=== PATIENT | female | born 1980 | race Caucasian/White ===

== ENCOUNTER 2021-08-23 15:44 | Emergency (ER) | payer BC, SELFPAY ==
[2021-08-23 15:47] VITALS: BP 151/82; PULSE 88; RESP 18; TEMP 35.6; O2SAT 95; BMI 42.7
--- NOTE | 2021-08-23 16:59 | ED_ITS ---
HPI - General Adult General Chief complaint: Extremity Pain/Injury, Lower Stated complaint: LEFT ANKLE INJURY Time Seen by Provider: 08/23/21 16:40 Source: patient Mode of arrival: ambulatory Limitations: no limitations History of Present Illness HPI narrative: 41-year-old female coming in today complaining of left lower extremity pain. She states that her heel got caught when a heavy door closed on her foot. She states that the pain is located in the back of the heel and radiates up her leg to the mid calf. She is able to ambulate. Denies any other injury. No pain in the anterior foot. Related Data Home Medications Medication Instructions Recorded Confirmed albuterol sulfate 90 mcg/actuation INHALATION 08/23/21 aerosol inhaler levothyroxine 75 mcg tablet mcg 08/23/21 lisdexamfetamine 60 mg capsule mg 08/23/21 (Vyvanse) quetiapine 50 mg tablet mg 08/23/21 sumatriptan succinate 50 mg tablet mg PO 08/23/21 vortioxetine 20 mg tablet mg 08/23/21 (Trintellix) Allergies Allergy/AdvReac Type Severity Reaction Status Date / Time ranitidine [From Zantac] Allergy Mild throath Verified 08/23/21 15:53 swelling Review of Systems Narrative: Denies any other injury Exam Narrative: Exam Narrative: Obese, well-developed patient in no acute distress. Alert and oriented. Answers questions appropriately. Mood and affect are appropriate. Thoughts are goal oriented and rational. No tangential or magical thinking noted. Patient speaks in full sentences without needing to catch their breath. HEENT: Normocephalic atraumatic. Pupils are equally round reactive to light. Extraocular muscles are intact. Conjunctivae are moist without any icterus noted. Extremities: Bilateral lower extremities are without edema. Normal DP and PT pulses. There is no bruising, erythema or other skin changes noted of the left lower extremity. There is no swelling. She does not have any point tenderness anywhere on the foot or heel. She has mild discomfort with palpation of the Achilles however Achilles appears to be entirely intact without any surrounding erythema or swelling. Moreno test is normal. Foot is vascularly intact, normal capillary refill. No pain at the ball of the foot or toes. No pain at the medial or lateral malleoli. She has full range of motion at the ankle without difficulty. Skin: Well perfused without any obvious rashes. Const: Vital Signs, click to edit/add: Vital Signs - 24 hr 08/23/21 15:47 Temperature 96.1 F L Pulse Rate [Left P ulse Oximeter] 88 Respiratory Rate 18 Blood Pressure [Le ft Upper Arm] 151/82 H Pulse Oximetry 95 Course Vital Signs Vital signs: Initial Vital Signs Temperature 96.1 F L 08/23/21 15:47 Temperature Source Temporal Artery Scan 08/23/21 15:47 Pulse Rate 88 08/23/21 15:47 Respiratory Rate 18 08/23/21 15:47 Blood Pressure 151/82 H 08/23/21 15:47 Blood Pressure Mean 105 08/23/21 15:47 Blood Pressure Position Sitting 08/23/21 15:47 Pulse Oximetry 95 08/23/21 15:47 Oxygen Delivery Method 08/23/21 15:47 Vital Signs Temperature 96.1 F L 08/23/21 15:47 Pulse Rate 88 08/23/21 15:47 Respiratory Rate 18 08/23/21 15:47 Blood Pressure 151/82 H 08/23/21 15:47 Pulse Oximetry 95 08/23/21 15:47 Temperature 96.1 F L 08/23/21 15:47 Pulse Rate 88 08/23/21 15:47 Respiratory Rate 18 08/23/21 15:47 Blood Pressure 151/82 H 08/23/21 15:47 Pulse Oximetry 95 08/23/21 15:47 Medical Decision Making MDM Narrative Medical decision making narrative: Foot injury. At this point I do not believe that we need to do any further imaging as her exam was fairly unremarkable. We discussed symptomatic treatment, elevation, icing, NSAIDs. Patient is requesting a work note which was granted today. She had no other questions or concerns. Discharge Plan Discharge Clinical Impression: Foot injury Patient Disposition: Home, Self-Care Condition: Stable Additional Instructions: Elevate, ice areas that are sore (not apply ice directly to skin). Okay to take [id number] pain medication such as Tylenol or ibuprofen as needed for discomfort. Prescriptions: No Action sumatriptan succinate 50 mg tablet PO 0RF levothyroxine 75 mcg tablet 0RF albuterol sulfate 90 mcg/actuation HFA aerosol inhaler INHALATION 0RF quetiapine 50 mg tablet 0RF Vyvanse 60 mg capsule 0RF Trintellix 20 mg tablet 0RF Follow Up/Referrals: Jovana Lee MD [Primary Care Provider] - Stand Alone Forms: [employer] Info Instructions
== END 2021-08-23 18:28 | disposition home or self-care (01) ==
LOC: ED 17:32
PROVIDERS: Emergency Provider Family Medicine; PCP Family Medicine
DX: S99.922A Unspecified injury of left foot, initial encounter (principal)
CPT/HCPCS: 99282

== ENCOUNTER 2021-09-28 10:30 | Outpatient (CLI) | payer BC, SELFPAY ==
--- OUTSIDE RECORDS SUMMARY | 2021-09-28 07:37 | XMS_ITS | Clinical Summary ---
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 cholecalciferol (Vitamin D3 5000 intl units oral table t) 1 tabs Oral every day. escitalopram (Lexapro) Oral every day. unknown strength. levothyroxine Oral every day. unknown strength. Problem List Condition Effective Dates Status Health Status Informant At high risk for falls(Confirmed)1 Active Familial spastic Active paraparesis(Confirmed) Spondylolisthesis at L5-S1 Active level(Confirmed) 1Added via Discern Expert ADD_HIGHRISKFALL_PROBLEM Rule. 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
--- OUTSIDE RECORDS SUMMARY | 2021-09-28 07:37 | XMS_ITS | Clinical Summary ---
:1980 Author Organization [facility] Address [address] [place] [address] Encounter 08/05/20 - 08/05/20 [facility] [address] [place] [address] Encounter Diagnosis Spasticity (Discharge Diagnosis) - 08/05/20 Discharge Disposition: Home or Self Care Attending Physician: Mary Deluca MD Admitting Physician: Mary Deluca MD Referring Physician: Mary Deluca MD Allergies, Adverse Reactions, Alerts Substance Reaction Severity Status Zantac Anaphylaxis Active Discharge Medications baclofen (baclofen 10 mg oral tablet) Status: Ordered Start Date: 07/28/20 1 tabs Oral nightly x 1 week, 1 tab po b id x 1 week, 1 tab po tid thereafter. Refills: 5. Ordering provider: Mary Deluca MD lamoTRIgine (lamoTRIgine 200 mg oral tablet) Status: Ordered Start Date: 08/05/20 1 tabs Oral every day. levothyroxine (levothyroxine 75 mcg (0.075 mg) oral ta blet) Status: Ordered Start Date: 08/05/20 1 tabs Oral every day. lisdexamfetamine (Vyvanse 40 mg oral capsule) Status: Ordered Start Date: 08/05/20 1 Capsules Oral every morning. omeprazole (omeprazole 20 mg oral delayed release caps ule) Status: Ordered Start Date: 08/05/20 1 Capsules Oral 2 times a day. vortioxetine (Trintellix 20 mg oral tablet) Status: Ordered Start Date: 08/05/20 1 tabs Oral every day. Problem List Condition Effective Dates Status Health Status Informant At high risk for falls(Confirmed)1 Active Familial spastic Active paraparesis(Confirmed) Spondylolisthesis at L5-S1 Active level(Confirmed) 1Added via Discern Expert ADD_HIGHRISKFALL_PROBLEM Rule. Hospital Discharge Diagnosis Spasticity (Discharge Diagnosis) - 08/05/20 (This Visit) Immunizations Given and Recorded Vaccine Date Status Refusal Reason influenza virus vaccine, inactivated 11/15/18 Recorded influenza virus vaccine, inactivated 12/02/16 Recorded influenza virus vaccine, inactivated 11/15/12 Recorded influenza virus vaccine, inactivated 10/17/11 Recorded influenza virus vaccine, inactivated 11/17/10 Recorded tetanus/diphth/pertuss (Tdap) adult/adol 03/07/12 Recorde d tetanus-diphth toxoids (Td) adult/adol 10/02/06 Recorded tetanus-diphth toxoids (Td) adult/adol 02/04/97 Recorded Vital Signs Most recent to oldest [Reference Range]: 1 Temperature Temporal Artery [36.5-38 Deg C] 35.5 Deg C *LOW* (08/05/20 10:05 AM) Peripheral Pulse Rate [50-90 bpm] 119 bpm *HI* (08/05/20 10:05 AM) Blood Pressure [100-140/60-90 mmHg] 159/113 mmHg *HI* (08/05/20 10:05 AM) Respiratory Rate [10-24 br/min] 17 br/min (08/05/20 10:05 AM) SpO2 [92-100 %] 97 % (08/05/20 10:05 AM) Pain Present Yes actual or suspected pain (08/05/20 10:25 AM) Able to self report Yes (08/05/20 10:25 AM) able to use numeric rating scale Yes (08/05/20 10:25 AM) Social History Social History Type Response Smoking Status Never smoker; Exposure to Se condhand Smoke: No entered on: 08/05/20 Sex
--- OUTSIDE RECORDS SUMMARY | 2021-09-28 07:37 | XMS_ITS | Clinical Summary ---
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 Ordering provider: Mary Deluca MD escitalopram (Lexapro) Status: Ordered Start Date: 05/02/16 30 Milligrams Oral every day. levothyroxine Status: Ordered Start Date: 05/02/16 Oral every day. unknown strength. Problem List Condition Effective Dates Status Health Status Informant At high risk for falls(Confirmed)1 Active Familial spastic Active paraparesis(Confirmed) Spondylolisthesis at L5-S1 Active level(Confirmed) 1Added via Discern Expert ADD_HIGHRISKFALL_PROBLEM Rule. 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/20 (This Visit) Immunizations Given and Recorded Vaccine [...] 1 Temperature Temporal Artery [36.5-38 Deg C] 36.8 Deg C (07/28/20 12:34 PM) Peripheral Pulse Rate [50-90 bpm] 89 bpm (07/28/20 12:34 PM) Blood Pressure [100-140/60-90 mmHg] 132/82 mmHg (07/28/20 12:34 PM) Height/Length Measured 164 cm (07/28/20 12:34 PM) Weight Measured 123.9 kg (07/28/20 12:34 PM) Weight Dosing 123.9 kg (07/28/20 12:34 PM) BSA Measured 2.38 m2 (07/28/20 12:34 PM) Body Mass Index Measured 46.07 kg/m2 (07/28/20 12:34 PM) Pain Present Patient was not seen (07/28/20 1:01 PM) Social History Social History Type Response Smoking Status Never smoker; Exposure to Se condhand Smoke: No entered on: 07/08/20 Sex
--- OUTSIDE RECORDS SUMMARY | 2021-09-28 07:37 | XMS_ITS | Clinical Summary ---
:1980 Author Organization [facility] Address [address] [place] [address] Encounter 12/16/18 - 12/16/[address] [address]- Discharge Disposition: Home or Self Care Attending Physician: Mary Deluca MD Admitting Physician: Mary Deluca MD Referring Physician: Mary Deluca MD Allergies, Adverse Reactions, Alerts Substance Reaction Severity Status Zantac Anaphylaxis Active Discharge Medications baclofen (baclofen 10 mg oral tablet) 0.5 tabs Oral 3 times a day. 0.5 tab po qhs x 1 week, 0.5 tab po bid x 1 week, then 0.5 tab po TID. Refills: 6. Ordering provider: Mary Deluca MD escitalopram (Lexapro) 30 Milligrams Oral every day. levothyroxine Oral every day. unknown strength. Problem List Condition Effective Dates Status Health Status Informant At high risk for falls(Confirmed)1 Active Familial spastic Active paraparesis(Confirmed) Spondylolisthesis at L5-S1 Active level(Confirmed) 1Added via Discern Expert ADD_HIGHRISKFALL_PROBLEM Rule. Immunizations Given and Recorded Vaccine Date Status Refusal Reason influenza virus vaccine, inactivated 11/15/18 Recorded influenza virus vaccine, inactivated 12/02/16 Recorded influenza virus vaccine, inactivated 11/15/12 Recorded influenza virus vaccine, inactivated 10/17/11 Recorded influenza virus vaccine, inactivated 11/17/10 Recorded tetanus/diphth/pertuss (Tdap) adult/adol 03/07/12 Recorde d tetanus-diphth toxoids (Td) adult/adol 02/04/97 Recorded Vital Signs Most recent to oldest [Reference Range]: 1 Height/Length Measured 164 cm (12/16/18 9:29 AM) Weight Measured 131.8 kg (12/16/18 9:29 AM) Body Mass Index Measured 49 kg/m2 (12/16/18 9:29 AM) Social History Social History Type Response Smoking Status Never smoker; Exposure to Se condhand Smoke: No entered on: 11/26/18 Sex
--- OUTSIDE RECORDS SUMMARY | 2021-09-28 07:38 | XMS_ITS | Clinical Summary ---
:1980 Author Organization [facility] Address [address] [place] [address] Encounter 07/24/19 - 07/24/19 [facility] [address] [place] [address] Encounter Diagnosis Spasticity (Discharge Diagnosis) - 07/24/19 Discharge Disposition: Home or Self Care Attending Physician: Mary Deluca MD Admitting Physician: Mary Deluca MD Referring Physician: Mary Deluca MD Allergies, Adverse Reactions, Alerts Substance Reaction Severity Status Zantac Anaphylaxis Active Discharge Medications escitalopram (Lexapro) Status: Ordered Start Date: 05/02/16 30 Milligrams Oral every day. levothyroxine Status: Ordered Start Date: 05/02/16 Oral every day. unknown strength. Problem List Condition Effective Dates Status Health Status Informant At high risk for falls(Confirmed)1 Active Familial spastic Active paraparesis(Confirmed) Spondylolisthesis at L5-S1 Active level(Confirmed) 1Added via Discern Expert ADD_HIGHRISKFALL_PROBLEM Rule. Hospital Discharge Diagnosis Spasticity (Discharge Diagnosis) - 07/24/19 (This Visit) Immunizations Given and Recorded Vaccine [...] 1 Temperature Temporal Artery [36.5-38 Deg C] 36.4 Deg C *LOW* (07/24/19 11:09 AM) Peripheral Pulse Rate [50-90 bpm] 101 bpm *HI* (07/24/19 11:09 AM) Blood Pressure [100-140/60-90 mmHg] 138/79 mmHg (07/24/19 11:09 AM) Weight Measured 128.4 kg (07/24/19 11:09 AM) Weight Dosing 128.4 kg (07/24/19 11:09 AM) Pain Present Yes actual or suspected pain (07/24/19 11:52 AM) Able to self report Yes (07/24/19 11:52 AM) able to use numeric rating scale Yes (07/24/19 11:52 AM) Social History Social History Type Response Smoking Status Never smoker; Exposure to Se condhand Smoke: No entered on: 07/01/19 Sex
--- OUTSIDE RECORDS SUMMARY | 2021-09-28 07:38 | XMS_ITS | Encounter Summary ---
:1980 Author Organization [facility] Address [address] [place] [address] Care Team Providers Name Role Phone Unavailable Primary Care Provider Unavailable Encounter Details Date Type Department Care Team Description 02/21/2021 Admin Visit Department of Family Medicine, [address] [address] [facility] [phone] Social History Tobacco Use Types Packs/Day Years Used Date Smoking Tobacco: Former Sex Assigned at Date Recorded Not on file documented as of this encounter Plan of Treatment Not on filedocumented as of this encounter Visit Diagnoses Not on filedocumented in this encounter Additional Health Concerns Infection Onset Date Last Indicated Resolved Time COVID19 Pending 02/21/2021 02/21/2021 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
--- OUTSIDE RECORDS SUMMARY | 2021-09-28 07:38 | XMS_ITS | Clinical Summary ---
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) - 04/08/18 (This Visit) Vital Signs Most recent to oldest [Reference Range]: 1 Temperature Tympanic [36.5-38 Deg C] 36.3 Deg C *LOW* (04/11/18 9:20 AM) Peripheral Pulse Rate [50-90 bpm] 82 bpm (04/11/18 9:20 AM) Blood Pressure [100-140/60-90 mmHg] 155/85 mmHg *HI* (04/11/18 9:20 AM) Respiratory Rate [10-24 br/min] 18 br/min (04/11/18 9:20 AM) SpO2 [92-100 %] 96 % (04/11/18 9:20 AM) Pain Present No actual or suspected pain (04/11/18 9:19 AM) Able to self report Yes (04/11/18 9:19 AM) able to use numeric rating scale Yes (04/11/18 9:19 AM) Social History Social History Type Response Smoking Status Never smoker; Exposure to Se condhand Smoke: No entered on: 04/11/18 Sex
--- OUTSIDE RECORDS SUMMARY | 2021-09-28 07:38 | XMS_ITS | Encounter Summary ---
:1980 Author Organization [facility] Address [address] [place] [address] Care Team Providers Name Role Phone Unavailable Primary Care Provider Unavailable Encounter Details Date Type Department Care Team Description 04/29/2020 Orders Only Department of Gail Reno V., Abscess Abd ominopelvic Obstetrics and Raissa, M.B.A. (HCC) (Primar y Dx) Gynecology in [place], [place] [address] [place] [address] Social History Tobacco Use Types Packs/Day Years Used Date Smoking Tobacco: Former Sex Assigned at Date Recorded Not on file documented as of this encounter Plan of Treatment Not on filedocumented as of this encounter Visit Diagnoses Diagnosis Abscess Abdominopelvic (HCC) - Primary documented in this encounter Additional Health Concerns Infection Onset Date Last Indicated Resolved Time COVID19 Pending 04/29/2020 04/29/2020 04/29/2020 5:55 PM CDT documented as of this encounter
--- OUTSIDE RECORDS SUMMARY | 2021-09-28 07:38 | XMS_ITS | Encounter Summary ---
:1980 Author Organization [facility] Address [address] [place] [address] Care Team Providers Name Role Phone Unavailable Primary Care Provider Unavailable Encounter Details Date Type Department Care Team Description 03/26/2006 Hospital Encounter HX [facility] Doyle Francis M.D. Social History Tobacco Use Types Packs/Day Years Used Date Smoking Tobacco: Never Assessed Sex Assigned at Date Recorded Not on file documented as of this encounter Plan of Treatment Not on filedocumented as of this encounter Visit Diagnoses Not on filedocumented in this encounter
--- OUTSIDE RECORDS SUMMARY | 2021-09-28 07:38 | XMS_ITS | Encounter Summary ---
:1980 Author Organization [facility] Address [address] [place] [address] Care Team Providers Name Role Phone Unavailable Primary Care Provider Unavailable Reason for Visit Reason Onset Date Comments Outpatient COVID-19 Testing 02/21/2021 Encounter Details Date Type Department Care Team Description 02/21/2021 External Outreach Department of [facility] Mary Kirby Contact With And Medicine, [facility] Galina Bingham (Suspected) Exposure Building, in [address] COVID-19 ([place], [place] Dx) [address] [facility] [address] [place], [place] [phone] [address] (Work) [phone] Social History Tobacco Use Types Packs/Day Years Used Date Smoking Tobacco: Former Sex Assigned at Date Recorded Not on file documented as of this encounter Progress Notes Lala Fay R.N. - 02/21/2021 11:23 AM CST Encounter created for COVID-19 screening. CTOR PRISON documented in this encounter Plan of Treatment Not on filedocumented as of this encounter Procedures Procedure Name Priority Date/Time Associated Diagnosis Comme nts SARS CORONAVIRUS-2 Routine 02/21/2021 1:15 PM Contact With And Results for this RNA, V DIRECTOR PRISON (Suspected) Exposure procedu re are in To COVID-19 the results section. documented in this encounter Results SARS Coronavirus-2 RNA, V Asymptomatic (02/21/2021 1:15 PM DIRECTOR PRISON) [facility] Method Time Signature SARS-CoV-2 Swab, 02/22/2021 MKTO Specimen Nasopharynx 4:28 AM DIRECTOR PRISON Source SARS CoV-2 Undetected Undetected 02/22/2021 MKTO RNA, TMA 4:28 AM DIRECTOR PRISON Comment: SARS-CoV-2 RNA absent. This result does not rule out COVID-19 in the patient, as the sensitivity of the test depends o n the timing of the specimen collection and the quality of the specim en. Result should be correlated with patient's history and clinical presentat ion. ----ADDITIONAL INFORMATION---- This molecular amplification test was pe rformed using the Aptima SARS-CoV-2 assay ([employer] on the Snipds tem under emergency use authorization (EUA) by the U.S. Food and Drug Administ ration. Fact sheets for this EUA assay can be fo und at the following links: For Healthcare Providers: https://www.[employer] a.gov/media/961420/download For Patients: https://www.fda.gov/media/ 713173/download Specimen Anatomical Collection Method Collection Time Receive d Time (Source) Location / / Volume Laterality Varies 02/21/2021 1:15 PM 9:53 (Nasopharynx) DIRECTOR PRISON PM DIRECTOR PRISON Kirby Hernandez D.O. LAB MICROBIOLOGY - GENERAL O RDERABLES Performing Organization Address City/State/[facility] Phon e Number [facility]- [address] [place] [phone] [place] [address] [place] [address] System [address] documented in this encounter Visit Diagnoses Diagnosis Contact With And (Suspected) Exposure To COVID-19 - Primary documented in this encounter Additional Health Concerns Infection Onset Date Last Indicated Resolved Time COVID19 Pending 02/21/2021 02/21/2021 02/22/2021 4:28 AM DIRECTOR PRISON documented as of this encounter
--- OUTSIDE RECORDS SUMMARY | 2021-09-28 07:38 | XMS_ITS | Encounter Summary ---
:1980 Author Organization [facility] Address [address] [place] [address] Care Team Providers Name Role Phone Unavailable Primary Care Provider Unavailable Reason for Visit Reason Comments Communication Encounter Details Date Type Department Care Team Description 05/24/2020 Clinical Communication Department of Gail Reno C ommunication Obstetrics and Raissa M.B.A. Gynecology in [place], [place] [address] [place] [address] Social History Tobacco Use Types Packs/Day Years Used Date Smoking Tobacco: Former Sex Assigned at Date Recorded Not on file documented as of this encounter Miscellaneous Notes Telephone Encounter - Anika Patel - 05/24/2020 5:01 PM CDT 05-24-2020: Letter okayed by Dr. Nina; authorization scanned to fax to employer; faxed to the employer (attention of Rebekah) as patient requested; patient notified. She appreciated the information. Telephone Encounter - Anika Patel - 05/24/2020 12:48 PM CDT 05-24-2020: Left message for patient to call me ([phone]). Will also send her an e-mail with an authorization attached. Need to have this signed, dated and returned to me today in order to get her letter withrestrictions to her employer. Have message in to Dr. Gail Reno who is in surgery today to call me back and give verification of the information for the patient. Will work on then getting this letter to patient's employer once the authorization is received. Spoke with patient after she received my e-mail. She will sign, date and scan and send back to me. Telephone Encounter - Anika Patel - 05/24/2020 12:08 PM CDT 05-24-2020: Paged Dr. Gail Reno to talk to her about the letter done for [place] on 04-30-2020. Will need tochange and get it back to the patient Today as the patient would like to return to work on 05-25-2020, tomorrow. Telephone Encounter - Dariela Caro - 05/24/2020 9:34 AM CDT Patient called regarding her return to work letter. She states the wording is confusing and her employer is unsure what her actual restrictions are. They are asking that a clearer letter be faxed to them at [phone] Attn: Rebekah stating when she can return to work and how long the lifting restrictions are. Patient is very much hoping to return to work on 05/25 and just have lifting restrictions until 06/04. She would like a call once complete. Thank you. documented in this encounter Plan of Treatment Not on filedocumented as of this encounter Visit Diagnoses Not on filedocumented in this encounter
--- OUTSIDE RECORDS SUMMARY | 2021-09-28 07:38 | XMS_ITS | Encounter Summary ---
:1980 Author Organization [facility] Address [address] [place] [address] Care Team Providers Name Role Phone Unavailable Primary Care Provider Unavailable Reason for Visit Reason Comments COVID Inquiry Encounter Details Date Type Department Care Team Description 02/21/2021 Clinical Communication Central Appointment HelderedABIMAEL briceno Office in [facility] [address] [place], [place] [id number] Social History Tobacco Use Types Packs/Day Years Used Date Smoking Tobacco: Former Sex Assigned at Date Recorded Not on file documented as of this encounter Miscellaneous Notes Telephone Encounter - Roxana Tan U - 02/21/2021 11:00 AM CST What is the purpose of the call?: Requesting Testing Only Request Testing In the past 14 days are any of the following symptoms new to you and not related to an existing health condition?: No symptoms noted In the past 14 days have you had close contact* with a person who has a LABORATORY CONFIRMED case ofCOVID-19?: Yes exposure noted. [place] patient, instruct to quarantine, testing indicated (End Screening) Plan: Endpoint recommendation: Testing indicated, advised to be swabbed for COVID-19 Only , sent to [facility] located at [address] [place] [address] ([facility]). An appointment is required for testing, please call [phone] Sunday-Sunday 7am to 6pm and Sunday & Sunday 9am to 4pm to schedule an appointment. Testing hours are 8am - 4:30pm daily. You can also schedule via your Patient Online [facility] account., Please avoid using public transportation per CDC recommendation. If you do not have personal transportation please self- quarantine until a personal transportation option is available. *Reminder if sending patient for testing in [facility] or [facility], route encounter to the correct testing pool. SHIPPER documented in this encounter Plan of Treatment Not on filedocumented as of this encounter Visit Diagnoses Not on filedocumented in this encounter
--- OUTSIDE RECORDS SUMMARY | 2021-09-28 07:38 | XMS_ITS | Clinical Summary ---
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 [...] Expert ADD_HIGHRISKFALL_PROBLEM Rule. 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 (This Visit) Immunizations Given and Recorded Vaccine Date Status Refusal Reason influenza virus vaccine, inactivated 11/15/18 Recorded influenza virus vaccine, inactivated 12/02/16 Recorded influenza virus vaccine, inactivated 11/15/12 Recorded influenza virus vaccine, inactivated 10/17/11 Recorded influenza virus vaccine, inactivated 11/17/10 Recorded tetanus/diphth/pertuss (Tdap) adult/adol 03/07/12 Recorde d tetanus-diphth toxoids (Td) adult/adol 02/04/97 Recorded Social History Social History Type Response Smoking Status Never smoker; Exposure to Se condhand Smoke: No entered on: 11/26/18 Sex
--- OUTSIDE RECORDS SUMMARY | 2021-09-28 07:38 | XMS_ITS | Clinical Summary ---
:1980 Author Organization [facility] Address [address] [place] [address] Care Team Providers Name Role Phone Unavailable Primary Care Provider Unavailable Source Comments Patient records contain information from all sites at [facility]. For routine questions regarding patient records, call [phone] during business hours, M-F 8:00 AM - 5:00 PM Central Time. Record requests for emergency care only can be directed to [phone] at any time.[facility] Allergies Active Allergy Reactions Severity Noted Date Comments Ragweed Pollen Other (see comments) 04/29/2020 Seaso nal allergy: watery eyes, sneezes, nasal congestion Ranitidine Hcl Anaphylaxis High 04/29/2020 Throat swelli ng with previous IV administrati on Medications Medication Sig Dispensed Refills Start Date End Date Status lisdexamfetamine Take 40 mg by 0 Active (VYVANSE) 40 mg capsule mouth every morning. omeprazole (PriLOSEC) Take 20 mg by [address] capsule mouth every morning before breakfast. lamoTRIgine (LaMICtal) Take 200 mg by 0 Active 200 mg tablet mouth daily. vortioxetine Take 20 mg by 0 Act rita (TRINTELLIX) 20 mg mouth daily. tablet levothyroxine Take 75 mcg by 0 A ctive (SYNTHROID, LEVOTHROID) mouth every 75 mcg tablet morning before breakfast. fluticasone propionate Administer 2 0 Active (FLONASE) 50 sprays into each mcg/actuation nasal nostril daily as spray needed for rhinitis or allergies. albuterol 90 Inhale 2 puffs 0 Ac tive mcg/actuation inhaler every 6 (six) hours as needed for wheezing or shortness of breath. enoxaparin (LOVENOX) 40 Inject 40 mg 0 04/22/2020 Active mg/0.4 mL injection under the skin at bedtime. acetaminophen (TYLENOL) Take 1,000 mg by 0 Active 500 mg tablet mouth every 6 (six) hours as needed for pain. docusate sodium Take 100 mg by 0 Active (COLACE) 100 mg capsule mouth 2 (two) times a day as needed for constipation. cetirizine (ZyrTEC) 10 Take 10 mg by 0 Active mg tablet mouth daily as needed for allergies. oxyCODONE (ROXICODONE) Take 5 mg by 0 Active 5 mg immediate release mouth every 4 tablet (four) hours as needed for pain. cholecalciferol, Take 5,000 Units 0 Active vitamin D3, (VITAMIN D3 by mouth daily. 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 Multiple Sclerosis 08/10/2016 Immunizations Name Administration Dates Next Due H1N1 All Forms 12/15/2008 MMR 06/11/1989 Td (Adult), adsorbed 03/16/2004, 07/04/1996 Td, (Adult) Unspecified 1997 Social History Tobacco Use Types Packs/Day Years Used Date Smoking Tobacco: Former Sex Assigned at Date Recorded Not on file Last Filed Vital Signs Vital Sign Reading Time Taken Comments Blood Pressure 148/83 04/30/2020 7:15 PM CDT Pulse 94 04/30/2020 7:15 PM CDT Temperature 37.3 ??C (99.1 ??F) 04/30/2020 7:15 PM CDT Respiratory Rate 16 04/30/2020 7:15 PM CDT Oxygen Saturation 98% 04/30/2020 7:15 PM CDT Inhaled Oxygen Concentration - - Weight 121 kg (265 lb 14 oz) 04/30/2020 8:12 AM CDT Height 167.5 cm (5' 5.95) 04/29/2020 1:55 PM CDT Body Mass Index 42.98 04/29/2020 1:55 PM CDT Plan of Treatment Health Maintenance Due Date Last Done Comments Fasting Lipid Panel 1980 HIV Screening 1980 Hepatitis B Vaccines (1 of 1980 3 - 3-dose series) Hepatitis C Screening 1980 Mammogram 1980 Thyroid Stimulating Hormone 1980 (TSH) test for thyroid function Depression Screening 02/05/2021 (Annual PHQ-2) Influenza Vaccine (#1) 2021 11/15/2020, 10/23/2019, 11/15/2018, Additional history exists DTaP,Tdap,and Td Vaccines 03/07/2022 03/07/2012, 03/07/2012 , (3 - Td or Tdap) 10/02/2006, Additional history exists COVID-19 Vaccine Completed 02/17/2021, 03/10/2020, 02/12/2020 Pneumococcal vaccine (0-64 Aged Out No lo nger eligible years) based on patient 's age to complete this topic Insurance Payer Benefit Plan Subscriber ID Effective Phone Address Typ e / Group Dates BLUE CROSS BCBS BLUE [id number] 2018-Prese ATTN: Yoan brooke HMO BLUE SHIELD PLUS HMO nt [facility] [address] [address] [place] [address] [phone] (Home) [place] [phone]
--- OUTSIDE RECORDS SUMMARY | 2021-09-28 07:38 | XMS_ITS | Encounter Summary ---
:1980 Author Organization [facility] Address [address] [place] [address] Care Team Providers Name Role Phone Unavailable Primary Care Provider Unavailable Encounter Details Date Type Department Care Team Description 04/24/2009 Hospital Encounter [facility] Bobo Ness M.D. Social History Tobacco Use Types Packs/Day Years Used Date Smoking Tobacco: Never Assessed Sex Assigned at Date Recorded Not on file documented as of this encounter Progress Notes Antony Ness M.D. - 04/24/2009 12:03 PM CDT [id number] SUBJECTIVE Comes in because of pain on her legs. States she lives in [place] near the [facility], is here visiting. As she was driving down here, developed pain in the thighs and has persisted to the point of being quite uncomfortable for her. She has a spastic diplegia, congenital. She is not on antispasmodic medicine and has not been on a lot of medicine for that. She volunteers that she has a history of addiction and that she has been dry and sober now for five years, and that she does not wish to have any narcotics or any other addicting medication. Her present medicine is: 1. Zoloft. 2. Wellbutrin. 3. Mary. 4. Zakia. The Zoloft was started about a week ago. She was on Baclofen once and got very tired from it, and itwas not continued. OBJECTIVE There is diffuse tenderness throughout the anterolateral thighs, both sides. There seems to be a center of tenderness at and just distal to the SI joint on both sides. The spinous processes are not tender. Her activity is suggestive of a spastic diplegia, but she states it is not different than her usual gait, etc. ASSESSMENT Leg pain of uncertain etiology. Quite likely related to her neurological deficit. PLAN Prescribed Skelaxin 800 three times a day, and after discussion about pain medicine, she elects to stay with Tylenol only. We talked about the possibility of Tramadol, and she would prefer not using it. She is going to check with her usual doctor on Sunday to see if there are other things of concern. She will return here during the weekend if there is any increasing symptomatology. DIAGNOSIS Leg pain. Antony Ness MD//briseida #[id number] cc: The provider is no longer available to sign documents. The report will be filed without authentication. Electronically Signed By:ANTONY NESS MD On 12/28/2009 11:37 am Modified by:ANTONY NESS MD On 12/28/2009 11:37 am Source: [facility] Document Id: [id number] ET JACK documented in this encounter Miscellaneous Notes Miscellaneous - Martinez Goodson, R.N. - 04/24/2009 12:22 PM CDT Adult Practice Management Consultant Intake/History Adult Practice Management Consultant Intake/History Entered On: 04/24/2009 12:23 CDT Performed On: 04/24/2009 12:22 CDT by MARTINEZ GOODSON sec reporting consultant Chief Complaint: legs tight--cannot walk Onset of Symptoms: yesterday Ambulatory Intake Additional Information: hx of spastic parapelgia Temperature Core: 35.0DegC(Converted to: 95.0DegF) (LOW) Peripheral Pulse Rate: 101bpm (HI) Oxygen Therapy: Room air Systolic Blood Pressure: 131mmHg Diastolic Blood Pressure: 85mmHg NIBP Mean: 100mmHg BP Location: Right upper extremity MARTINEZ GOODSON RN - 04/24/2009 12:22 CDT Subjective Pain Symptoms: Yes MARTINEZ GOODSON RN - 04/24/2009 12:22 CDT Pain Pain Assessment Grid Pain 1 Location: Upper leg Laterality: Bilateral Intensity: 8 Pain Radiation: Yes Radiation Characteristics: lower legs and back MARTINEZ GOODSON RN - 04/24/2009 12:22 CDT Dependent Habits Tobacco Use/Currently Using: No MARTINEZ GOODSON RN - 04/24/2009 12:22 CDT Allergies Allergies (Active) Zantac Estimated Onset Date: Unspecified ; Reactions: Anaphylaxis ; Created By: MARTINEZ GOODSON RN;Reaction Status: Active ; Category: Drug ; Substance: Zantac ; Type: Allergy ; Updated By: MARTINEZ GOODSON RN; Reviewed Date: 04/24/2009 12:20 CDT [facility] Document Id: [id number] CDT!24 documented in this encounter Plan of Treatment Not on filedocumented as of this encounter Visit Diagnoses Not on filedocumented in this encounter
--- OUTSIDE RECORDS SUMMARY | 2021-09-28 07:38 | XMS_ITS | Encounter Summary ---
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 Gap, P 7 7 - 15 04/29/2020 M[facility] 3:56 PM CDT BUN (Blood Urea 13 6 - 21 04/29/2020 M[facility] Nitrogen), P mg/dL 3:56 PM CDT Creatinine 0.75 0.59 - 04/29/2020 M[facility] 1.04 mg/dL 3:56 PM CDT eGFR-Black/Afric >90 >=60 04/29/2020 METH an Haitian mL/min/BSA 3:56 PM CDT Comment: ----ADDITIONAL INFORMATION---- Estimated GFR calculated using the 2009 CKD_EPI creatinine equation. eGFR Non-Black/ >90 >=60 mL/min/BSA 04/29/2020 3:56 PM CDT METH Comment: ----ADDITIONAL INFORMATION---- Estimated GFR calculated using the 2009 CKD_EPI creatinine equation. Calcium, Total, P 8.8 8.6 - 10.0 mg/dL 04/29/2020 3:56 PM CDT METH Glucose, P 92 70 - 140 mg/dL 04/29/2020 3:56 PM CDT M ETH Specimen Anatomical Collection Method Collection Time Receive d Time (Source) Location / / Volume Laterality Blood (Blood, 04/29/2020 3:22 PM 04/30/19 3:28 Venous) CDT PM CDT Gail Reno M.D., M.B.A. LAB BLOOD ADD-ON Performing Organization Address City/State/ZIP Code Phon e Number [facility] - [address] [place], [place] [address] [facility] [place] [address] [facility] 200 [facility] Bacteria / Yulissa Culture, Blood #2 (04/29/2020 3:22 PM CDT) [facility] gist Method Time Signature Bacteria/Taylor No growth 05/04/2020 DTL da Culture, after 5 4:02 PM CDT Blood days of incubation. Specimen (Source) Anatomical Collection Method Collection Time Re ceived Time Location / / Volume Laterality Blood (Blood, 04/29/2020 3:22 04/29/2020 3:41 Peripheral Draw) PM CDT PM CDT Comment: Specimen Source Site: Blood blo od Gail Reno M.D., M.B.A. LAB MICROBIOLOGY - GENERAL ORDERABLES Performing Organization Address City/[facility] Phon e Number [facility] - [id number] [place] [address] Bacteria / Yulissa Culture, Blood #1 (04/29/2020 2:56 PM CDT) [facility] Worklight Method Time Signature Bacteria/Taylor No growth 05/04/2020 DTL da Culture, after 5 4:02 PM CDT Blood days of incubation. Specimen (Source) Anatomical Collection Method Collection Time Re ceived Time Location / / Volume Laterality Blood (Blood, 04/29/2020 2:56 04/29/2020 3:41 Peripheral Draw) PM CDT PM CDT Comment: Specimen Source Site: Blood blo od Gail Reno M.D., M.B.A. LAB MICROBIOLOGY - GENERAL ORDERABLES Performing Organization Address City/[facility] Phon e Number [facility] - [id number] [place] [address] documented in this encounter Visit Diagnoses Diagnosis Abscess Abdominopelvic (HCC) - Primary documented in this encounter Admitting Diagnoses Diagnosis Abscess Abdominopelvic (HCC) documented in this encounter Administered Medications Inactive Administered Medications - up to 3 most recent administrations Medication Order MAR Action Action Date Dose Rate Site acetaminophen tablet 1,000 mg Given 04/30/2020 8:12 AM CDT 1,000 mg (TYLENOL) 1,000 mg, oral, 4 times daily, First dose on Kim 04/29/20 at 1700, not to exceed 4 grams in 24 hours. Given 04/29/2020 10:18 PM CDT 1,000 mg Given 04/29/2020 4:30 PM CDT 1,000 mg haloperidol lactate injection 1 mg (HALD OL) 1 mg, intravenous, Every 6 hours PRN, na usea, vomiting, Starting on Kim 04/29/20 at 1355, For 48 hours, Total of 3 doses in 24 hour period. RASS must be -2 or higher to administer. Reassess for nausea or vo miting after at least 10 minutes. If nausea or vomiting persists administer next ordered antiemeti c medications (order for antiemetic medication administration ondansetron then haloperidol then promethazine) ibuprofen tablet 600 mg (ADVIL,MOTRIN) 600 mg, oral, Every 6 hours PRN, moderat e pain or score 4-6 of 10, Starting on Sun04/30/20 at 0703, Take with food or milk if GI disturba nces occur with use. ketorolac injection 15 mg (TORADOL) Given 04/30/2020 3:55 AM CDT 15 mg 15 mg, intravenous, Every 6 hours, First dose on Kim 04/29/20 at 1500, For 4 doses, start no sooner than 6 hours after last intraoperative dose Adult IV push rate: Over 15 seconds. Peds IV push rate: Over 1 minute. 60 mg dose only for IM, not recommended for IV. Given 04/29/2020 10:19 PM CDT 15 mg Given 04/29/2020 2:52 PM CDT 15 mg lactated ringers Rate/Dose Verify 04/29/2020 11:11 PM CDT 40 mL/hr 40 mL/hr 40 mL/hr, intravenous, Continuous, Starting on Sun04/29/20 at 1400 New Bag 04/29/2020 2:12 PM CDT 40 mL/hr 40 mL/hr lamoTRIgine tablet 200 mg (LaMICtal) Given 04/30/2020 8:12 AM CDT 200 mg 200 mg, oral, Daily, First dose on Sun04/30/20 at 0900 levothyroxine tablet 75 mcg (SYNTHROID, Given 04/30/2020 6:47 AM CDT 75 mcg LEVOTHROID) 75 mcg, oral, Daily before breakfast, First dose on Sun04/30/20 at 0700 LORazepam injection 0.5 mg (ATIVAN) Given 04/29/2020 4:32 PM CDT 0.5 mg 0.5 mg, intravenous, Once, On Sun04/29/20 at 1630, For 1 dose, For intravenous use, dilute with equal volume of 0.9% NS magnesium hydroxide suspension 30 mL (MILK OF Given 8:12 AM CDT 30 mL MAGNESIA) 30 mL, oral, 2 times daily, First dose on Sun04/29/20 at 2100, Starting evening of surgery. After first bowel movement discontinue Magnesium hydroxide. Given 04/29/2020 10:19 PM CDT 30 mL metroNIDAZOLE tablet 500 mg (FLAGYL) Given 04/30/2020 6:27 PM CDT 500 mg 500 mg, oral, 2 times daily, First dose on Sun04/30/20 at 1900, Indications: Obstetric or gynecological infection naloxone injection 0.2 mg (NARCAN) 0.2 mg, intravenous, As needed, respirat ory depression, Starting on Kim 04/29/20 at 1355, For RASS Score -4 or less, respiratory rate of l ess than 8 breaths/min. Notify provider/service and rapid response team (if av ailable at institution). ondansetron (PF) injection 4 mg (ZOFRAN) 4 mg, intravenous, Every 6 hours PRN, na usea, vomiting, Starting on Kim 04/29/20 at 1355, For 48 hours, Reassess for nausea or vomiting after at least 10 minutes. If nausea or vomiting persists administer n ext ordered antiemetic medications (order for antiemetic medication administration ondansetron t hen haloperidol then promethazine). oxyCODONE IR tablet 5 mg (ROXICODONE) Given 04/29/2020 4:03 PM CDT 5 mg 5 mg, oral, Once, On Sun04/29/20 at 1600, For 1 dose oxyCODONE IR tablet 5 mg (ROXICODONE) 5 mg, oral, Every 4 hours PRN, severe pain or score 7- 10 of 10, Starting on Sun04/29/[address] tablet 40 mg (PROTONIX) Given 04/30/2020 6:47 AM CDT 40 mg 40 mg, oral, Daily before breakfast, First dose on Sun04/30/20 at 0700, pantoprazole 40 mg oral daily was interchanged for omeprazole 20 or 40 mg oral daily Swallow whole. Do NOT crush, chew, or split tablet. piperacillin-tazobactam in dextrose New Bag 04/30/2020 11:27 A M CDT 4.5 g 200 mL/hr (iso-osm) IVPB 4.5 g (ZOSYN) 4.5 g, intravenous, at 200 mL/hr, Administer over 0.5 Hours, Every 6 hours, First dose on Sun04/29/20 at 1800, For 4 doses, Drug Monitoring Program: Pharmacist to adjust medication dosing based on indication and drug clearance factors., Indications: Obstetric or gynecological infection New Bag 04/30/2020 6:46 AM CDT 4.5 g 200 mL/hr New Bag 04/30/2020 12:28 AM CDT 4.5 g 200 mL/hr promethazine injection 6.25 mg (PHENERGA N) 6.25 mg, intravenous, Every 6 hours PRN, nausea, vomiting, Starting on Sun04/29/20 at 1355, For 48 hours, RASS must be -2 o r higher to administer. Reassess for nausea or vomiting after at least 10 minutes. I f nausea or vomiting persists administer next ordered antiemetic medications (ord er for antiemetic medication administration ondansetron then haloperidol then promethazine) sennosides-docusate sodium 8.6-50 mg per Given 04/30/2020 8:12 A M CDT 1 tablet tablet 1 tablet (SENOKOT-S) 1 tablet, oral, 2 times daily, First dose on Sun04/29/20 at 2100, Starting evening of surgery. Given 04/29/2020 10:19 PM CDT 1 tablet sulfamethoxazole-trimethoprim 800-160 mg Given 04/30/2020 6:27 P M CDT 1 tablet per tablet 1 tablet (BACTRIM DS) 1 tablet, oral, Every 12 hours scheduled, First dose on Sun04/30/20 at 1900, Drug Monitoring Program: Pharmacist to adjust medication dosing based on indication and drug clearance factors., Indications: Obstetric or gynecological infection vortioxetine tablet 20 mg (TRINTELLIX) Given 04/30/2020 8:14 AM CDT 20 mg 20 mg, oral, Daily, First dose on Sun04/30/20 at 0900 documented in this encounter Active and Recently Administered Medications Times are shown in CDT. Scheduled Medication Order 04/28/2020 04/29/2020 04/30/2020 acetaminophen tablet 1,000 mg (TYLENOL) 1630 (Given - Provider: Jolly Cruz R.N.)2218 (Given - Provider: Jolly Cruz R.N.) 0812 (Given - Provider: Ninfa Castellano R.N.)1126 (Not Given - Provider: Ninfa Castellano R.N. - Reason: Patient/family refused)1614 (Not Given - Provider: Ninfa Castellano R.N. - Reason: Patient/family refused) 1,000 mg, oral, 4 times daily, First dos e on Kim 04/29/20 at 1700, not to exceed 4 grams in 24 hours. enoxaparin injection 40 mg (LOVENOX) 40 mg, subcutaneous, Daily at bedtime, First dose on Sun04/30/20 at 2100 ketorolac injection 15 mg (TORADOL) (CANCELED) 1452 (Given - Provider: Chen Fitzpatrick R.N.)2219 (Given - Provider: Jolly Cruz R.N.) 0355 (Given - Provider: Bella Stoner R.N.) 15 mg, intravenous, Every 6 hours, First dose on Kim 04/29/20 at 1500, For 4 doses, start no sooner than 6 hours after last intraoperative dose Adult IV push rate: Over 15 seconds. Peds IV push rate: Ove r 1 minute. 60 mg dose only for IM, not recommended for IV. lamoTRIgine tablet 200 mg (LaMICtal) 0812 (Given - Provider: Ninfa Castellano R.N.) 200 mg, oral, Daily, First dose on Sun04/30/20 at 0900 levothyroxine tablet 75 mcg (SYNTHROID, LEVOTHROID) 0647 (Given - Provider: Bella Stoner R.N.) 75 mcg, oral, Daily before breakfast, First dose on Sun04/30/20 at 0700 LORazepam injection 0.5 mg (ATIVAN) (COMPLETED) 1632 (Given - Provider: Jolly Cruz R.N.) 0.5 mg, intravenous, Once, On Sun 1 at 1630, For 1 dose, For intravenous use, dilute with equal volume of 0.9% NS magnesium hydroxide suspension 30 mL (MILK OF MAGNESIA) 2219 (Given - Provider: Jolly Cruz R.N.) 0812 (Given - Provider: Miguel Ángel ErnandezNKiran) 30 mL, oral, 2 times daily, First dose o n Sun04/29/20 at 2100, Starting evening of surgery. After first bowel movement discontinue Magnesium hydroxide. metroNIDAZOLE tablet 500 mg (FLAGYL) 1826 (Given - Provider: Ninfa Castellano RKiranNKiran) 500 mg, oral, 2 times daily, First dose on Sun04/30/20 at 1900, Indications: Obstetric or gynecological infection oxyCODONE IR tablet 5 mg (ROXICODONE) (COMPLETED) 160 (Given - Provider: Jolly Cruz R.N.) 5 mg, oral, Once, On Sun04/29/20 at 1600, For [address] tablet 40 mg (PROTONIX) 0647 (Given - Provider: Bella Stoner RKiranNKiran) 40 mg, oral, Daily before breakfast, Fir st dose on Sun04/30/20 at 0700, pantoprazole 40 mg oral daily was interchanged for omeprazole 20 or 40 mg oral daily Swallow whole. Do NOT crush, chew, or split tablet. piperacillin-tazobactam in dextrose (iso-osm) IVPB 4.5 g (ZO SYN) (COMPLETED) 185 (New Bag - Provider: Jolly Cruz R.N.) 0028 (New Bag - Provider: Miguel Ángel HoffmanN.)0646 (New Bag - Provider: Bella Stoner R.N.)1127 (New Bag - Provider: Ninfa Castellano R.NKiran) 4.5 g, intravenous, at 200 mL/hr, Admini ster over 0.5 Hours, Every 6 hours, First dose on Sun04/29/20 at 1800, For 4 doses, Drug Monitoring Program: Pharmacist to adjust medication dosing based on indic ation and drug clearance factors., Indic ations: Obstetric or gynecological infection sennosides-docusate sodium 8.6-50 mg per tablet 1 tablet (SE NOKOT-S) 5215 (Given - Provider: Jolly Cruz R.N.) 0812 (Given - Provider: Ninfa Castellano R.N.) 1 tablet, oral, 2 times daily, First dos e on Sun04/29/20 at 2100, Starting evening of surgery. sulfamethoxazole-trimethoprim 800-160 mg per tablet 1 tablet (FELICITY CTRIM DS) 3067 (Given - Provider: Ninfa Castellano R.N.) 1 tablet, oral, Every 12 hours scheduled , First dose on Sun04/30/20 at 1900, Drug Monitoring Program: Pharmacist to adjust medication dosing based on indication and drug clearance factors., Indications: Obstetric or gynecological infection vortioxetine tablet 20 mg (TRINTELLIX) 0814 (Given - Provider: Ninfa Castellano R.N.) 20 mg, oral, Daily, First dose on Sun04/30/20 at 0900 Continuous Medication Order 04/28/2020 04/29/2020 04/30/2020 lactated ringers (CANCELED) 1412 (New Ba g - Provider: Jolly Cruz R.N.)2311 (Rate/Dose Verify - Provider: Jolly Cruz R.N.) 0800 (Stopped - Provider: Ninfa Castellano R.N.) 40 mL/hr, intravenous, at 40 mL/hr, Continuous, Starti ng on Sun04/29/20 at 1400 PRN Medication Order 04/28/2020 04/29/2020 04/30/2020 albuterol nebulizer solution 2.5 mg (ACCUNEB) 2.5 mg, nebulization, Every 4 hours PRN, shortness of breath, Starting Sun04/29/20 at 1515, Albuterol nebs were interchanged for albuterol/levalbuterol MDI (same frequency) haloperidol lactate injection 1 mg (HALDOL) 1 mg, intravenous, Every 6 hours PRN, na usea, vomiting, Starting on Sun04/29/20 at 1355, For 48 hours, Total of 3 doses in 24 hour period. RASS must be -2 or higher to administer. Reassess for nausea or vomiting after at least 10 minutes. If nausea or vomiting persists administer next ordered antiemetic medications (order for antiemetic medication administration ondansetron then haloperidol then promethazine) ibuprofen tablet 600 mg (ADVIL,MOTRIN) 600 mg, oral, Every 6 hours PRN, moderat e pain or score 4-6 of 10, Starting on Sun04/30/20 at 0703, Take with food or milk if GI disturbances occur with use. naloxone injection 0.2 mg (NARCAN) 0.2 mg, intravenous, As needed, respirat ory depression, Starting on Kim 04/29/20 at 1355, For RASS Score -4 or less, respiratory rate of less than 8 breaths/min. Notify provider/service and rapid response team (if available at institution). ondansetron (PF) injection 4 mg (ZOFRAN) 4 mg, intravenous, Every 6 hours PRN, na usea, vomiting, Starting on Kim 04/29/20 at 1355, For 48 hours, Reassess for nausea or vomiting after at least 10 minutes. If nausea or vomiting persists administe r next ordered antiemetic medications (o rder for antiemetic medication administration ondansetron then haloperidol then promethazine). oxyCODONE IR tablet 5 mg (ROXICODONE) 5 mg, oral, Every 4 hours PRN, severe pa in or score 7-10 of 10, Starting on Kim 04/29/20 at 1741 promethazine injection 6.25 mg (PHENERGAN) 6.25 mg, intravenous, Every 6 hours PRN, nausea, vomiting, Starting on Kim 04/29/20 at 1355, For 48 hours, RASS must be -2 or higher to administer. Reassess for nausea or vomiting after at least 10 minut es. If nausea or vomiting persists admin ister next ordered antiemetic medications (order for antiemetic medication administration ondansetron then haloperidol then promethazine) documented in this encounter Additional Health Concerns Infection Onset Date Last Indicated Resolved Time COVID19 Pending 04/29/2020 04/29/2020 04/29/2020 5:55 PM CDT documented as of this encounter
--- OUTSIDE RECORDS SUMMARY | 2021-09-28 07:38 | XMS_ITS | Clinical Summary ---
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 Vital Signs Most recent to oldest 1 2 [Reference Range]: Pain Present No actual or suspected pain No actual or suspected pain (02/13/18 9:30 AM) (01/25/18 11:05 AM) Social History Social History Type Response Smoking Status Never smoker; Exposure to Se condhand Smoke: No entered on: 01/03/18 Sex
--- OUTSIDE RECORDS SUMMARY | 2021-09-28 07:38 | XMS_ITS | Clinical Summary ---
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 Spasticity (Discharge Diagnosis) - 11/26/18 (This Visit) Immunizations Given and Recorded Vaccine Date Status Refusal Reason influenza virus vaccine, inactivated 11/15/18 Recorded influenza virus vaccine, inactivated 12/02/16 Recorded influenza virus vaccine, inactivated 11/15/12 Recorded influenza virus vaccine, inactivated 10/17/11 Recorded influenza virus vaccine, inactivated 11/17/10 Recorded tetanus/diphth/pertuss (Tdap) adult/adol 03/07/12 Recorde d tetanus-diphth toxoids (Td) adult/adol 02/04/97 Recorded Vital Signs Most recent to oldest [Reference Range]: 1 Peripheral Pulse Rate [50-90 bpm] 84 bpm (11/26/18 4:13 PM) Blood Pressure [100-140/60-90 mmHg] 107/74 mmHg (11/26/18 4:13 PM) Pain Present No actual or suspected pain (11/26/18 4:08 PM) Able to self report Yes (11/26/18 4:08 PM) able to use numeric rating scale Yes (11/26/18 4:08 PM) Social History Social History Type Response Smoking Status Never smoker; Exposure to Se condhand Smoke: No entered on: 11/26/18 Sex
--- OUTSIDE RECORDS SUMMARY | 2021-09-28 07:38 | XMS_ITS | Encounter Summary ---
:1980 Author Organization [facility] Address [address] [place] [address] Care Team Providers Name Role Phone Unavailable Primary Care Provider Unavailable Encounter Details Date Type Department Care Team Description 03/03/2006 Hospital Encounter HX [facility] Anthony Cortes D.O. Social History Tobacco Use Types Packs/Day Years Used Date Smoking Tobacco: Never Assessed Sex Assigned at Date Recorded Not on file documented as of this encounter Plan of Treatment Not on filedocumented as of this encounter Visit Diagnoses Not on filedocumented in this encounter
--- OUTSIDE RECORDS SUMMARY | 2021-09-28 07:39 | XMS_ITS | Encounter Summary ---
:1980 Author Organization [facility] Address [address] [place] [address] Care Team Providers Name Role Phone Unavailable Primary Care Provider Unavailable Encounter Details Date Type Department Care Team Description 10/20/2005 Hospital Encounter HX [facility] Robin Huitron M.D. [address] [place], [place] [address] (Wo rk) Social History Tobacco Use Types Packs/Day Years Used Date Smoking Tobacco: Never Assessed Sex Assigned at Date Recorded Not on file documented as of this encounter Plan of Treatment Not on filedocumented as of this encounter Visit Diagnoses Not on filedocumented in this encounter
--- OUTSIDE RECORDS SUMMARY | 2021-09-28 07:39 | XMS_ITS | Encounter Summary ---
:1980 Author Organization [facility] Address [address] [place] [address] Care Team Providers Name Role Phone Unavailable Primary Care Provider Unavailable Encounter Details Date Type Department Care Team Description 09/04/2005 Hospital Encounter HX [facility] Doyle Francis M.D. Social History Tobacco Use Types Packs/Day Years Used Date Smoking Tobacco: Never Assessed Sex Assigned at Date Recorded Not on file documented as of this encounter Plan of Treatment Not on filedocumented as of this encounter Visit Diagnoses Not on filedocumented in this encounter
--- OUTSIDE RECORDS SUMMARY | 2021-09-28 07:39 | XMS_ITS | Encounter Summary ---
:1980 Author Organization [facility] Address [address] [place] [address] Care Team Providers Name Role Phone Unavailable Primary Care Provider Unavailable Encounter Details Date Type Department Care Team Description 01/26/2006 - Hospital Encounter HX [facility]2 01/30/2006 OBSTETRICS Social History Tobacco Use Types Packs/Day Years Used Date Smoking Tobacco: Never Assessed Sex Assigned at Date Recorded Not on file documented as of this encounter Plan of Treatment Not on filedocumented as of this encounter Visit Diagnoses Not on filedocumented in this encounter
--- OUTSIDE RECORDS SUMMARY | 2021-09-28 07:39 | XMS_ITS | Encounter Summary ---
:[address] [facility] Address [address] [place] [address] Care Team Providers Name Role Phone Unavailable Primary Care Provider Unavailable Encounter Details Date Type Department Care Team Description 02/07/2006 Hospital Encounter HX [facility] Doyle Francis M.D. Social History Tobacco Use Types Packs/Day Years Used Date Smoking Tobacco: Never Assessed Sex Assigned at Date Recorded Not on file documented as of this encounter Plan of Treatment Not on filedocumented as of this encounter Visit Diagnoses Not on filedocumented in this encounter
--- OUTSIDE RECORDS SUMMARY | 2021-09-28 07:39 | XMS_ITS | Encounter Summary ---
:[address] [facility] Address [address] [place] [address] Care Team Providers Name Role Phone Unavailable Primary Care Provider Unavailable Encounter Details Date Type Department Care Team Description 10/18/2005 Hospital Encounter HX [facility] Robin Huitron M.D. [address] [place], [place] [address] (Wo rk) Social History Tobacco Use Types Packs/Day Years Used Date Smoking Tobacco: Never Assessed Sex Assigned at Date Recorded Not on file documented as of this encounter Plan of Treatment Not on filedocumented as of this encounter Visit Diagnoses Not on filedocumented in this encounter
--- OUTSIDE RECORDS SUMMARY | 2021-09-28 07:39 | XMS_ITS | Encounter Summary ---
:1980 Author Organization [facility] Address [address] [place] [address] Care Team Providers Name Role Phone Unavailable Primary Care Provider Unavailable Encounter Details Date Type Department Care Team Description 01/05/2006 Hospital Encounter HX NO MAPPING Social History Tobacco Use Types Packs/Day Years Used Date Smoking Tobacco: Never Assessed Sex Assigned at Date Recorded Not on file documented as of this encounter Plan of Treatment Not on filedocumented as of this encounter Visit Diagnoses Not on filedocumented in this encounter
--- OUTSIDE RECORDS SUMMARY | 2021-09-28 07:39 | XMS_ITS | Encounter Summary ---
:1980 Author Organization [facility] Address [address] [place] [address] Care Team Providers Name Role Phone Unavailable Primary Care Provider Unavailable Encounter Details Date Type Department Care Team Description 12/14/2005 Hospital Encounter HX NO MAPPING Provider, Historical Social History Tobacco Use Types Packs/Day Years Used Date Smoking Tobacco: Never Assessed Sex Assigned at Date Recorded Not on file documented as of this encounter Plan of Treatment Not on filedocumented as of this encounter Visit Diagnoses Not on filedocumented in this encounter
--- OUTSIDE RECORDS SUMMARY | 2021-09-28 07:39 | XMS_ITS | Encounter Summary ---
:1980 Author Organization [facility] Address [address] [place] [address] Care Team Providers Name Role Phone Unavailable Primary Care Provider Unavailable Encounter Details Date Type Department Care Team Description 12/18/2005 Hospital Encounter HX NO MAPPING [place] [address] Social History Tobacco Use Types Packs/Day Years Used Date Smoking Tobacco: Never Assessed Sex Assigned at Date Recorded Not on file documented as of this encounter Plan of Treatment Not on filedocumented as of this encounter Visit Diagnoses Not on filedocumented in this encounter
--- OUTSIDE RECORDS SUMMARY | 2021-09-28 07:39 | XMS_ITS | Encounter Summary ---
:1980 Author Organization [facility] Address [address] [place] [address] Care Team Providers Name Role Phone Unavailable Primary Care Provider Unavailable Encounter Details Date Type Department Care Team Description 11/13/2005 Hospital Encounter [facility] Doyle Francis M.D. Social History Tobacco Use Types Packs/Day Years Used Date Smoking Tobacco: Never Assessed Sex Assigned at Date Recorded Not on file documented as of this encounter Plan of Treatment Not on filedocumented as of this encounter Visit Diagnoses Not on filedocumented in this encounter
--- OUTSIDE RECORDS SUMMARY | 2021-09-28 07:39 | XMS_ITS | Encounter Summary ---
:1980 Author Organization [facility] Address [address] [place] [address] Care Team Providers Name Role Phone Unavailable Primary Care Provider Unavailable Encounter Details Date Type Department Care Team Description 11/14/2005 Hospital Encounter [facility] Doyle Francis M.D. Social History Tobacco Use Types Packs/Day Years Used Date Smoking Tobacco: Never Assessed Sex Assigned at Date Recorded Not on file documented as of this encounter Plan of Treatment Not on filedocumented as of this encounter Visit Diagnoses Not on filedocumented in this encounter
--- OUTSIDE RECORDS SUMMARY | 2021-09-28 07:39 | XMS_ITS | Encounter Summary ---
:1980 Author Organization [facility] Address [address] [place] [address] Care Team Providers Name Role Phone Unavailable Primary Care Provider Unavailable Encounter Details Date Type Department Care Team Description 12/05/2005 Hospital Encounter [facility] Doyle Francis M.D. Social History Tobacco Use Types Packs/Day Years Used Date Smoking Tobacco: Never Assessed Sex Assigned at Date Recorded Not on file documented as of this encounter Plan of Treatment Not on filedocumented as of this encounter Visit Diagnoses Not on filedocumented in this encounter
--- OUTSIDE RECORDS SUMMARY | 2021-09-28 07:39 | XMS_ITS | Encounter Summary ---
:1980 Author Organization [facility] Address [address] [place] [address] Care Team Providers Name Role Phone Unavailable Primary Care Provider Unavailable Encounter Details Date Type Department Care Team Description 12/19/2005 Hospital Encounter HX NO MAPPING Social History Tobacco Use Types Packs/Day Years Used Date Smoking Tobacco: Never Assessed Sex Assigned at Date Recorded Not on file documented as of this encounter Plan of Treatment Not on filedocumented as of this encounter Visit Diagnoses Not on filedocumented in this encounter
--- OUTSIDE RECORDS SUMMARY | 2021-09-28 07:39 | XMS_ITS | Encounter Summary ---
:1980 Author Organization [facility] Address [address] [place] [address] Care Team Providers Name Role Phone Unavailable Primary Care Provider Unavailable Encounter Details Date Type Department Care Team Description 08/25/2005 Hospital Encounter [facility] Doyle Francis M.D. Social History Tobacco Use Types Packs/Day Years Used Date Smoking Tobacco: Never Assessed Sex Assigned at Date Recorded Not on file documented as of this encounter Plan of Treatment Not on filedocumented as of this encounter Visit Diagnoses Not on filedocumented in this encounter
--- OUTSIDE RECORDS SUMMARY | 2021-09-28 07:39 | XMS_ITS | Encounter Summary ---
:1980 Author Organization [facility] Address [address] [place] [address] Care Team Providers Name Role Phone Unavailable Primary Care Provider Unavailable Encounter Details Date Type Department Care Team Description 11/27/[address] [facility] [place] [address] Social History Tobacco Use Types Packs/Day Years Used Date Smoking Tobacco: Never Assessed Sex Assigned at Date Recorded Not on file documented as of this encounter Plan of Treatment Not on filedocumented as of this encounter Visit Diagnoses Not on filedocumented in this encounter
--- OUTSIDE RECORDS SUMMARY | 2021-09-28 07:39 | XMS_ITS | Encounter Summary ---
:1980 Author Organization [facility] Address [address] [place] [address] Care Team Providers Name Role Phone Unavailable Primary Care Provider Unavailable Encounter Details Date Type Department Care Team Description 02/26/2006 Hospital Encounter [facility]X [facility] Doyle Francis M.D. Social History Tobacco Use Types Packs/Day Years Used Date Smoking Tobacco: Never Assessed Sex Assigned at Date Recorded Not on file documented as of this encounter Plan of Treatment Not on filedocumented as of this encounter Visit Diagnoses Not on filedocumented in this encounter
--- OUTSIDE RECORDS SUMMARY | 2021-09-28 07:39 | XMS_ITS | Encounter Summary ---
:1980 Author Organization [facility] Address [address] [place] [address] Care Team Providers Name Role Phone Unavailable Primary Care Provider Unavailable Encounter Details Date Type Department Care Team Description 12/14/2005 Hospital Encounter HX NO MAPPING [place] [address] Social History Tobacco Use Types Packs/Day Years Used Date Smoking Tobacco: Never Assessed Sex Assigned at Date Recorded Not on file documented as of this encounter Plan of Treatment Not on filedocumented as of this encounter Visit Diagnoses Not on filedocumented in this encounter
--- OUTSIDE RECORDS SUMMARY | 2021-09-28 07:39 | XMS_ITS | Encounter Summary ---
:1980 Author Organization [facility] Address [address] [place] [address] Care Team Providers Name Role Phone Unavailable Primary Care Provider Unavailable Encounter Details Date Type Department Care Team Description 12/14/2005 Hospital Encounter HX NO MAPPING Doyle Ansari M .D. Social History Tobacco Use Types Packs/Day Years Used Date Smoking Tobacco: Never Assessed Sex Assigned at Date Recorded Not on file documented as of this encounter Plan of Treatment Not on filedocumented as of this encounter Visit Diagnoses Not on filedocumented in this encounter
--- OUTSIDE RECORDS SUMMARY | 2021-09-28 07:39 | XMS_ITS | Encounter Summary ---
:1980 Author Organization [facility] Address [address] [place] [address] Care Team Providers Name Role Phone Unavailable Primary Care Provider Unavailable Encounter Details Date Type Department Care Team Description 10/26/2005 Hospital Encounter [facility]X [facility] Angelina Storey S, ADAM, C.N.P. [address] [place] [address] (Wo rk) Social History Tobacco Use Types Packs/Day Years Used Date Smoking Tobacco: Never Assessed Sex Assigned at Date Recorded Not on file documented as of this encounter Plan of Treatment Not on filedocumented as of this encounter Visit Diagnoses Not on filedocumented in this encounter
--- OUTSIDE RECORDS SUMMARY | 2021-09-28 07:39 | XMS_ITS | Encounter Summary ---
:1980 Author Organization [facility] Address [address] [place] [address] Care Team Providers Name Role Phone Unavailable Primary Care Provider Unavailable Encounter Details Date Type Department Care Team Description 12/08/2005 Hospital Encounter [facility] Doyle Francis M.D. Social History Tobacco Use Types Packs/Day Years Used Date Smoking Tobacco: Never Assessed Sex Assigned at Date Recorded Not on file documented as of this encounter Plan of Treatment Not on filedocumented as of this encounter Visit Diagnoses Not on filedocumented in this encounter
--- OUTSIDE RECORDS SUMMARY | 2021-09-28 07:39 | XMS_ITS | Encounter Summary ---
:1980 Author Organization [facility] Address [address] [place] [address] Care Team Providers Name Role Phone Unavailable Primary Care Provider Unavailable Encounter Details Date Type Department Care Team Description 09/20/2005 Hospital Encounter [facility]X [facility] Doyle Francis M.D. Social History Tobacco Use Types Packs/Day Years Used Date Smoking Tobacco: Never Assessed Sex Assigned at Date Recorded Not on file documented as of this encounter Plan of Treatment Not on filedocumented as of this encounter Visit Diagnoses Not on filedocumented in this encounter
--- OUTSIDE RECORDS SUMMARY | 2021-09-28 07:39 | XMS_ITS | Encounter Summary ---
:1980 Author Organization [facility] Address [address] [place] [address] Care Team Providers Name Role Phone Unavailable Primary Care Provider Unavailable Encounter Details Date Type Department Care Team Description 08/22/2005 Hospital Encounter [facility] Social History Tobacco Use Types Packs/Day Years Used Date Smoking Tobacco: Never Assessed Sex Assigned at Date Recorded Not on file documented as of this encounter Plan of Treatment Not on filedocumented as of this encounter Visit Diagnoses Not on filedocumented in this encounter
--- OUTSIDE RECORDS SUMMARY | 2021-09-28 07:39 | XMS_ITS | Encounter Summary ---
:1980 Author Organization [facility] Address [address] [place] [address] Care Team Providers Name Role Phone Unavailable Primary Care Provider Unavailable Encounter Details Date Type Department Care Team Description 03/23/2004 - Hospital Encounter HX [facility] IP Ismael Merlos, 03/24/2004 D.O. Social History Tobacco Use Types Packs/Day Years Used Date Smoking Tobacco: Never Assessed Sex Assigned at Date Recorded Not on file documented as of this encounter Plan of Treatment Not on filedocumented as of this encounter Visit Diagnoses Not on filedocumented in this encounter
--- OUTSIDE RECORDS SUMMARY | 2021-09-28 07:39 | XMS_ITS | Encounter Summary ---
:1980 Author Organization [facility] Address [address] [place] [address] Care Team Providers Name Role Phone Unavailable Primary Care Provider Unavailable Encounter Details Date Type Department Care Team Description 02/19/2006 Hospital Encounter [facility] Doyle Francis M.D. Social History Tobacco Use Types Packs/Day Years Used Date Smoking Tobacco: Never Assessed Sex Assigned at Date Recorded Not on file documented as of this encounter Plan of Treatment Not on filedocumented as of this encounter Visit Diagnoses Not on filedocumented in this encounter
--- OUTSIDE RECORDS SUMMARY | 2021-09-28 07:39 | XMS_ITS | Encounter Summary ---
:1980 Author Organization [facility] Address [address] [place] [address] Care Team Providers Name Role Phone Unavailable Primary Care Provider Unavailable Encounter Details Date Type Department Care Team Description 10/02/2005 Hospital Encounter [facility]X [facility] Elizabeth Meredith, LiuAKiran-C. [address] [place], [place] [address] (Wo rk) Social History Tobacco Use Types Packs/Day Years Used Date Smoking Tobacco: Never Assessed Sex Assigned at Date Recorded Not on file documented as of this encounter Plan of Treatment Not on filedocumented as of this encounter Visit Diagnoses Not on filedocumented in this encounter
--- OUTSIDE RECORDS SUMMARY | 2021-09-28 07:39 | XMS_ITS | Encounter Summary ---
:1980 Author Organization [facility] Address [address] [place] [address] Care Team Providers Name Role Phone Unavailable [...]
--- OUTSIDE RECORDS SUMMARY | 2021-09-28 07:39 | XMS_ITS | Encounter Summary ---
:1980 Author Organization [facility] Address [address] [place] [address] Care Team Providers Name Role Phone Unavailable Primary Care Provider Unavailable Encounter Details Date Type Department Care Team Description 08/10/2005 Hospital Encounter [facility] Angelina Storey S, ADAM, C.N.P. [address] [place] [address] (Wo rk) Social History Tobacco Use Types Packs/Day Years Used Date Smoking Tobacco: Never Assessed Sex Assigned at Date Recorded Not on file documented as of this encounter Plan of Treatment Not on filedocumented as of this encounter Visit Diagnoses Not on filedocumented in this encounter
--- OUTSIDE RECORDS SUMMARY | 2021-09-28 07:39 | XMS_ITS | Encounter Summary ---
:1980 Author Organization [facility] Address [address] [place] [address] Care Team Providers Name Role Phone Unavailable Primary Care Provider Unavailable Encounter Details Date Type Department Care Team Description 01/04/2006 Hospital Encounter [facility]X [facility] Robin Huitron M.D. [address], Esvin [address] [place], [place] [address] (Wo rk) Social History Tobacco Use Types Packs/Day Years Used Date Smoking Tobacco: Never Assessed Sex Assigned at Date Recorded Not on file documented as of this encounter Plan of Treatment Not on filedocumented as of this encounter Visit Diagnoses Not on filedocumented in this encounter
--- OUTSIDE RECORDS SUMMARY | 2021-09-28 07:40 | XMS_ITS | Encounter Summary ---
:1980 Author Organization [facility] Address [address] [place] [address] Care Team Providers Name Role Phone Unavailable Primary Care Provider Unavailable Encounter Details Date Type Department Care Team Description 07/13/2005 [facility] Carla Travis, [facility] [address] [place], [place] [id number] Social History Tobacco Use Types Packs/Day Years Used Date Never Assessed Sex Assigned at Date Recorded Not on file documented as of this encounter Ordered Prescriptions Prescription Sig Dispensed Refills Start Date End Date Albuterol 90 Take 2 puffs by mouth 1 0 02/23/2005 mcg/Actuation Aerosol every 4 hours as Inhaler needed for shortness of breath documented in this encounter Plan of Treatment Not on filedocumented as of this encounter Visit Diagnoses Not on filedocumented in this encounter
--- OUTSIDE RECORDS SUMMARY | 2021-09-28 07:40 | XMS_ITS | Encounter Summary ---
:1980 Author Organization [facility] Address [address] [place] [address] Care Team Providers Name Role Phone Unavailable Primary Care Provider Unavailable Encounter Details Date Type Department Care Team Description 08/29/2002 Hospital Encounter [facility]X [facility] Virginie Bal M.D. Social History Tobacco Use Types Packs/Day Years Used Date Smoking Tobacco: Never Assessed Sex Assigned at Date Recorded Not on file documented as of this encounter Plan of Treatment Not on filedocumented as of this encounter Visit Diagnoses Not on filedocumented in this encounter
--- OUTSIDE RECORDS SUMMARY | 2021-09-28 07:40 | XMS_ITS | Encounter Summary ---
:1980 Author Organization [facility] Address [address] [place] [address] Care Team Providers Name Role Phone Unavailable Primary Care Provider Unavailable Encounter Details Date Type Department Care Team Description 08/22/2002 Hospital Encounter [facility]X [facility] Ritesh Goins D.OKiran [address] [place], [place] [address] (Wo rk) Social History Tobacco Use Types Packs/Day Years Used Date Smoking Tobacco: Never Assessed Sex Assigned at Date Recorded Not on file documented as of this encounter Plan of Treatment Not on filedocumented as of this encounter Visit Diagnoses Not on filedocumented in this encounter
--- OUTSIDE RECORDS SUMMARY | 2021-09-28 07:40 | XMS_ITS | Encounter Summary ---
:1980 Author Organization [facility] Address [address] [place] [address] Care Team Providers Name Role Phone Unavailable Primary Care Provider Unavailable Encounter Details Date Type Department Care Team Description 01/30/2001 Hospital Encounter [facility] [place] Demarco Ferguson C, P.A. Social History Tobacco Use Types Packs/Day Years Used Date Smoking Tobacco: Never Assessed Sex Assigned at Date Recorded Not on file documented as of this encounter Plan of Treatment Not on filedocumented as of this encounter Visit Diagnoses Not on filedocumented in this encounter
--- OUTSIDE RECORDS SUMMARY | 2021-09-28 07:40 | XMS_ITS | Clinical Summary ---
:1980 Author Organization [facility] [place] [address] Care Team Providers Name Role Phone Jovana Lee MD Primary Care Provider [phone] Allergies Active Allergy Reactions Severity Noted Date Comments Ranitidine Edema Medications Medication Sig Dispensed Refills Start Date End Date Status ALBUTEROL 90 inhale 1 puff 0 Act rita MCG/ACTUATION AEROSOL by inhalation INHALER route every 4-6 hours as needed cholecalciferol (VITAMIN Take 2 tablets 0 12/07/2011 Active D3) 1,000 unit tablet by mouth once daily. For 8 weeks; then decrease to 2 tablets tablets daily omeprazole (PRILOSEC) 20 Take 20 mg by 0 Active mg Delayed-Release mouth. capsule levothyroxine 75 mcg once 0 08/26/2020 Act rita (SYNTHROID) 75 mcg daily. tablet albuterol HFA (PRO-AIR; As directed PRN 0 08/26/2020 Active VENTOLIN; PROVENTIL) 90 mcg/actuation inhaler celecoxib (CELEBREX) 200 As Directed 0 09/29/2020 Active mg capsule SUMAtriptan (IMITREX) 50 0 12/22/2020 Active mg tablet valACYclovir (VALTREX) 1 0 12/22/2020 Active gram tablet Drysol 20 % external 0 12/22/2020 Active solution vortioxetine Take 1 Tablet 30 Tablet 2 06/30/2021 Ac tive (Trintellix) 20 mg (20 mg) by tabletIndications: mouth once Recurrent major daily. depressive disorder, in partial remission (HC), Anxiety lisdexamfetamine Take 1 Capsule 30 Capsule 0 09/19/2021 Active (VYVANSE) 60 mg (60 mg) by capsuleIndications: ADHD mouth once (attention deficit daily. hyperactivity disorder), inattentive type QUEtiapine (SEROQUEL) 50 Take 1 Tablet 30 Tablet 2 06/30/2021 Active mg tabletIndications: (50 mg) by Recurrent major mouth at depressive disorder, in bedtime. partial remission (HC), Borderline personality disorder (HC), Anxiety, Psychophysiological insomnia lisdexamfetamine Take 1 Capsule 30 Capsule 0 08/19/2021 (VYVANSE) 60 mg (60 mg) by 2 capsuleIndications: ADHD mouth once (attention deficit daily. hyperactivity disorder), inattentive type Active Problems Problem Noted Date Controlled substance agreement signed 02/01/2021 Overview: 08/26/20 Lyn Rea MD/psychiatry Recurrent major depressive disorder, in partial remiss ion 08/07/2017 ADHD (attention deficit hyperactivity disorder), inatt entive type 03/21/2017 Borderline personality disorder 11/22/2016 Anxiety 11/22/2016 ALFONSO (obstructive sleep apnea) 12/07/2015 Alcohol abuse, unspecified 07/03/2006 Overview: last use 2005 History of substance use disorder 07/03/2006 Overview: cociane, mushrooms, crack last use 2005 Backache, unspecified 07/03/2006 Paraplegia 07/03/2006 Resolved Problems Problem Noted Date Resolved Date Controlled substance agreement signed 04/15/2019 Overview: Signed 04/15/2019 Dr Lyn Rea Psy chiatry Controlled substance agreement signed 12/13/2016 Overview: 11/22/16 signed .Dawna Deleon DNP, HOME [facility] , [employer]/psychiatry/hc Moderate episode of recurrent major depressive disorder 11/0508/07/2017 Controlled substance agreement signed 06/21/2016 Overview: Signed: 05/27/15 Dr. Eben Cortes MD / psychiatry MAJOR DEPRESSION RECURRENT 09/12/2006 11/22/2016 Overview: Previous medications Citalopram (Celexa), Fluoxetine (Prozac) , Paroxetin (Paxil), Bupropion (Wellbutrin), Buspirone (Buspar), Venlafaxine (Effexor), Lamotrigine (Limictal), Aripiprazole (Abilify), Quetiapine (Seroquel) Depressive disorder, not elsewhere classified 07/03/2006 07/20/2011 Encounters Date Type Specialty Care Team Description 06/30/2021 Telemedicine Lyn Rea, [facility]; Medication MD Management (Per NDT INSPECTOR Vyvanse 60mg #30 last s old 06/19/21) 06/30/2021 Travel from Last 3 Months Immunizations Name Administration Dates Next Due Influenza A (H1N1), Inactivated 12/15/2008 Influenza A (H1N1), Inactivated (Age 1112/15/2008 >=3 Years) Influenza Virus, Unspecified 11/15/2018, 12/02/2016, 013, 10/17/2011, 11/17/2010 Influenza, IIV3 (Age 6-35 mos) 11/15/2012, 10/17/2011, 11/17 Influenza, IIV3 (Age >=3 years) 12/02/2016 Influenza, IIV4 10/23/2019, 11/15/2018 Influenza,CCIIV4 PRESERV FREE 12/02/2016 MMR 06/11/1989 TD, UNSPECIFIED 10/02/2006, 1997, 1997 Td (Age >=7 Years) 03/16/2004, 1997, 07/04/1996 Td, Preservative Free (age >= 7 10/02/2006 Years) Tdap 03/07/2012 Family History Medical History Relation Name Comments Diabetes Maternal Grandfather Psychiatric illness Mother Diabetes Paternal Grandfather Relation Name Status Comments Father Alive Maternal Grandfather Mother Alive Paternal Grandfather Sister 1 Alive Sister 2 Alive Social History Tobacco Use Types Packs/Day Years Used Date Former Smoker Cigarettes 1 Quit: 05/15/19 Smokeless Tobacco: Never Used Tobacco Cessation: Ready to Quit: Yes; C ounseling Given: Yes Comments: quit 10/2020 Alcohol Use Standard Drinks/Week Comments Yes 0 (1 standard drink = 0.6 oz pure alcoho l) on weekends Alcohol Habits Answer Date Recorded How often do you have a drink containing alcohol? Not asked How many drinks containing alcohol do you have on a typical Not asked day when you are drinking? How often do you have six or more drinks on one occasion? No t asked Comment: on weekends 06/26/2016 Sex Assigned at Date Recorded Female 09/17/2019 12:36 PM CDT Obstetrics History Last Filed Vital Signs Vital Sign Reading Time Taken Comments Blood Pressure 132/80 01/08/2020 4:59 PM FAMILY SERVICE WORKER Pulse 93 01/08/2020 4:59 PM FAMILY SERVICE WORKER Temperature 37.2 ??C (98.9 ??F) 01/08/2020 4:59 PM FAMILY SERVICE WORKER Respiratory Rate 18 03/22/2015 2:02 PM FAMILY SERVICE WORKER Oxygen Saturation 96% 01/08/2020 4:59 PM FAMILY SERVICE WORKER Inhaled Oxygen Concentration - - Weight 133.7 kg (294 lb 12.8 oz) 04/15/2019 2:09 PM CDT Height 164 cm (5' 4.57) 03/21/2017 4:35 PM FAMILY SERVICE WORKER Body Mass Index 49.72 03/21/2017 4:35 PM FAMILY SERVICE WORKER Plan of Treatment Health Maintenance Due Date Last Done Comments Hepatitis C screening for age 1202/05/1996 18-79 BMI (ht and wt on same day) for 03/21/2018 03/21/2017, 11/0 02/2015, age 18+ 09/23/2015, Additional history exists Influenza for age 9-49 10/06/2021 10/23/2019, 11/15/2018, 11/15/2018, Additional history exists Tetanus booster 04/19/2022 04/19/2012 (Completed outside of [facility]), 03/07/2012, 10/02/2006, Additional history exists Pap test for age 21-65 06/26/2022 06/27/2019, 06/27/2019, 04/07/2014, Additional history exists Depression screening for age 12+ 06/30/2022 06/30/2021, 06/2021, 11/10/2020, Additional history exists Tdap Completed 03/07/2012 COVID-19 vaccine series Completed 02/17/2021, 03/10/2020, 02/12/2020 Results Not on filefrom Last 3 Months Insurance Payer Benefit Plan / Subscriber ID Effective Dates Phone Addre ss Type Group WC WORKERS JAMILA BENSON [id number] 2019-Presen [address] [place] [address] [employer] [id number] 2018-Present [address] [address] [place] [address] [place] Workers Comp Self 1980 [address] (Home) ISIAH TOVAR [id number] Care Teams Gym Supervisor Relationship Specialty Start Date End Date Jovana Lee MD PCP - General Family Practice 09/23/151999 IS[place] Stewart [phone]
--- OUTSIDE RECORDS SUMMARY | 2021-09-28 07:40 | XMS_ITS | Encounter Summary ---
:1980 Author Organization [facility] Address [address] [place] [address] Care Team Providers Name Role Phone Unavailable Primary Care Provider Unavailable Encounter Details Date Type Department Care Team Description 03/15/2004 - Hospital Encounter [facility]X [facility] LASF IP Provider, Histor ical 03/23/2004 Social History Tobacco Use Types Packs/Day Years Used Date Smoking Tobacco: Never Assessed Sex Assigned at Date Recorded Not on file documented as of this encounter Plan of Treatment Not on filedocumented as of this encounter Visit Diagnoses Not on filedocumented in this encounter
--- OUTSIDE RECORDS SUMMARY | 2021-09-28 07:40 | XMS_ITS | Encounter Summary ---
:1980 Author Organization [facility] Address [address] [place] [address] Care Team Providers Name Role Phone Unavailable Primary Care Provider Unavailable Encounter Details Date Type Department Care Team Description 02/27/2001 Hospital Encounter HX [facility] Justyn Camacho M.D. Social History Tobacco Use Types Packs/Day Years Used Date Smoking Tobacco: Never Assessed Sex Assigned at Date Recorded Not on file documented as of this encounter Plan of Treatment Not on filedocumented as of this encounter Visit Diagnoses Not on filedocumented in this encounter
--- OUTSIDE RECORDS SUMMARY | 2021-09-28 07:40 | XMS_ITS | Encounter Summary ---
:1980 Author Organization [facility] Address [address] [place] [address] Care Team Providers Name Role Phone Unavailable Primary Care Provider Unavailable Encounter Details Date Type Department Care Team Description 07/18/2002 Hospital Encounter HX [facility] FAMILYPRA Virginie Bal M.D. Social History Tobacco Use Types Packs/Day Years Used Date Smoking Tobacco: Never Assessed Sex Assigned at Date Recorded Not on file documented as of this encounter Plan of Treatment Not on filedocumented as of this encounter Visit Diagnoses Not on filedocumented in this encounter
--- OUTSIDE RECORDS SUMMARY | 2021-09-28 07:40 | XMS_ITS | Encounter Summary ---
:1980 Author Organization [facility] Address [address] [place] [address] Care Team Providers Name Role Phone Unavailable Primary Care Provider Unavailable Encounter Details Date Type Department Care Team Description 03/01/2001 Hospital Encounter HX NO MAPPING Provider, Historical Social History Tobacco Use Types Packs/Day Years Used Date Smoking Tobacco: Never Assessed Sex Assigned at Date Recorded Not on file documented as of this encounter Plan of Treatment Not on filedocumented as of this encounter Visit Diagnoses Not on filedocumented in this encounter
--- OUTSIDE RECORDS SUMMARY | 2021-09-28 07:40 | XMS_ITS | Encounter Summary ---
:1980 Author Organization [facility] Address [address] [place] [address] Care Team Providers Name Role Phone Unavailable Primary Care Provider Unavailable Encounter Details Date Type Department Care Team Description 08/19/2002 Hospital Encounter [facility]X [facility] URGENTCAR Akash Galdamez W, P.A. [address] [place], [place] [id number] (Wo rk) Social History Tobacco Use Types Packs/Day Years Used Date Smoking Tobacco: Never Assessed Sex Assigned at Date Recorded Not on file documented as of this encounter Plan of Treatment Not on filedocumented as of this encounter Visit Diagnoses Not on filedocumented in this encounter
--- OUTSIDE RECORDS SUMMARY | 2021-09-28 07:40 | XMS_ITS | Encounter Summary ---
:1980 Author Organization [facility] Address [address] [place] [address] Care Team Providers Name Role Phone Unavailable Primary Care Provider Unavailable Encounter Details Date Type Department Care Team Description 09/01/2002 Hospital Encounter [facility]X [facility] URGENTCAR Celine Wilson, EliuO. [address] [place], [place] [address] (Wo rk) Social History Tobacco Use Types Packs/Day Years Used Date Smoking Tobacco: Never Assessed Sex Assigned at Date Recorded Not on file documented as of this encounter Plan of Treatment Not on filedocumented as of this encounter Visit Diagnoses Not on filedocumented in this encounter
--- OUTSIDE RECORDS SUMMARY | 2021-09-28 07:40 | XMS_ITS | Clinical Summary ---
:1980 Author Organization [facility] incl [facility] and [facility] Address [address] [place] [address] Care Team Providers Name Role Phone Inactive, Administrativel Primary Care Provider [phone] Source Comments If you need additional information that is not available on Care Everywhere, please contact our Medical Records Department during business hours (Sunday - Sunday, 8 am - 5 pm) at . During nonbusiness hours, please contact our Trauma and Emergency Center at .[facility] including [facility] and [facility] Medications Medications may not be up to date as of this document. Always verify current medications with the patient. Medication Sig Dispensed Refills Start Date End Date Status Effexor Take by mouth daily 0 12/17/2004 Active Albuterol 90 Take 2 puffs by 1 0 02/23/2005 Active mcg/Actuation Aerosol mouth every 4 hours Inhaler as needed for shortness of breath Immunizations Name Administration Dates Next Due MMR Live 06/11/1989 PPD Test 05/11/2004 Td (adult), 2 tetanus toxoid 03/16/2004, 07/04/1996 Social History Tobacco Use Types Packs/Day Years Used Date Never Assessed Sex Assigned at Date Recorded Not on file Plan of Treatment Health Maintenance Due Date Last Done Comments COVID-19 Vaccine (#1) 1980 DEPRESSION/ANXIETY PHQ4 02/05/1996 LIPID SCREEN 02/05/1996 WELLNESS VISIT 02/05/1996 PERTUSSIS 1997 DTaP/Tdap/Td (2 - Tdap) 03/17/2004 03/16/2004, 07/04/1996 CERVICAL CANCER SCREENING 07/13/2008 07/13/2005 MAMMOGRAM 2018 INFLUENZA (#1) 2021 PNEUMOCOCCAL AGES 0-64 YEARS Aged Out No longer eligible based on patient's age to complete this to pic Care Teams Claim Processing Specialist Relationship Specialty Start Date End Date Inactive, Administrativel PCP - General 01/08/[address] [facility] [place] [address]
--- OUTSIDE RECORDS SUMMARY | 2021-09-28 07:40 | XMS_ITS | Encounter Summary ---
:1980 Author Organization [facility] Address [address] [place] [address] Care Team Providers Name Role Phone Unavailable Primary Care Provider Unavailable Encounter Details Date Type Department Care Team Description 06/01/2005 Interface Meds [facility] Family Practice Provider, 1980 [place] [address] Social History Tobacco Use Types Packs/Day Years Used Date Never Assessed Sex Assigned at Date Recorded Not on file documented as of this encounter Plan of Treatment Not on filedocumented as of this encounter Visit Diagnoses Not on filedocumented in this encounter Historical Medications This list may reflect changes made after this encounter. Medication Sig Dispensed Refills Start Date End Date Effexor Take by mouth daily 0 12/17/2004 added in this encounter
--- OUTSIDE RECORDS SUMMARY | 2021-09-28 07:40 | XMS_ITS | Encounter Summary ---
:1980 Author Organization [facility] Address [address] [address] Care Team Providers Name Role Phone Unavailable Primary Care Provider Unavailable Encounter Details Date Type Department Care Team Description 05/07/2000 - 05/08/2000 Hospital Encounter HX [facility] 5D Social History Tobacco Use Types Packs/Day Years Used Date Smoking Tobacco: Never Assessed Sex Assigned at Date Recorded Not on file documented as of this encounter Plan of Treatment Not on filedocumented as of this encounter Visit Diagnoses Not on filedocumented in this encounter
[2021-09-28 11:22] LABS: Chloride* 102 mmol/L (96-114); Potassium* 4.1 mmol/L (3.6-5.1); Sodium* 137 mmol/L (135-149)
[2021-09-28 11:24] LABS: Alkaline Phosphatase* 89 U/L (40-150); Aspartate Amino Transferase* 24 U/L (12-35); Bilirubin Total* 1.2 mg/dL (0.1-1.5); Blood Urea Nitrogen* 12 mg/dL (5-24); Carbon Dioxide* 29 mmol/L (20-32); Cholesterol* 226 mg/dL (90-199); Creatinine* 0.8 mg/dL (0.5-1.5); Estimated Glomerular Filt Rate 94 ml/min; Total Protein* 6.8 g/dL (6.0-8.3)
[2021-09-28 11:25] LABS: Alanine Aminotransferase* 20 U/L (4-35); Glucose* 86 mg/dL (60-115); HDL Cholesterol* 50 mg/dL (>=50); LDL Cholesterol Calculated 144 mg/dL (<100); Triglycerides* 161 mg/dL (40-149)
[2021-09-29 09:15] LABS: Free T4 Free Thyroxine* 1.21 ng/dL (0.70-1.85)
[2021-10-01 18:13] LABS: Follicle Stimulating Hormone 8.4 IU/L
== END 2021-09-28 10:31 | disposition home or self-care (01) ==
PROVIDERS: PCP Family Medicine; Visit Provider Family Medicine
DX: E03.9 Hypothyroidism, unspecified (principal); E78.5 Hyperlipidemia, unspecified
CPT/HCPCS: 80053; 80061; 83001; 84439; 84443

== ENCOUNTER 2021-10-22 12:19 | Outpatient (CLI) | payer BC, SELFPAY ==
--- OUTSIDE RECORDS SUMMARY | 2021-11-15 11:56 | XMS_ITS | Encounter Summary ---
:1980 Author Organization [facility] Address [address] [place] [address] Care Team Providers Name Role Phone Unavailable [...]
--- OUTSIDE RECORDS SUMMARY | 2021-11-15 11:56 | XMS_ITS | Encounter Summary ---
:[address] [facility] Address [address] [place] [address] Care Team Providers Name Role Phone Unavailable Primary Care Provider Unavailable Encounter Details Date Type Department Care Team Description 04/24/2009 Hospital Encounter HX [facility] U[facility] Bobo Ness M.D. Social History Tobacco Use Types Packs/Day Years Used Date Smoking Tobacco: Never Assessed Sex Assigned at Date Recorded Not on file documented as of this encounter Progress Notes Antony Ness M.D. - 04/24/2009 12:03 PM CDT [id number] SUBJECTIVE Comes in because of pain on her legs. States she lives in [place] near the [facility], is here visiting. As she [...] symptomatology. DIAGNOSIS Leg pain. Antony Ness MD//briseida #[id number] cc: The provider is no longer available to sign documents. The report will be filed without authentication. 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 - 04/24/2009 12:22 PM CDT Adult Shipping Coordinator Intake/History Adult Shipping Coordinator Intake/History Entered On: 04/24/2009 12:23 CDT Performed On: 04/24/2009 12:22 CDT by MARTINEZ GOODSON administrative tech Chief Complaint: legs tight--cannot walk Onset of [...] RN; Reviewed Date: 04/24/2009 12:20 CDT [facility] Document Id: [id number] CDT!24 documented in this encounter Plan of Treatment Not on filedocumented as of this encounter Visit Diagnoses Not on filedocumented in this encounter
--- OUTSIDE RECORDS SUMMARY | 2021-11-15 11:56 | XMS_ITS | Encounter Summary ---
:1980 Author Organization [facility] Address [address] [place] [address] Care Team Providers Name Role Phone Unavailable Primary Care Provider Unavailable Reason for Visit Reason Comments Communication Encounter Details Date Type Department Care Team Description 05/24/2020 Clinical Communication Department of Gail Reno C ommunication Obstetrics and Raissa M.B.A. Gynecology in [place], [place] [address] [place] [address] Social History Tobacco Use Types Packs/Day Years [...] Left message for patient to call me ([phone]). Will also send her an e-mail with [...] clearer letter be faxed to them at [phone] Attn: Rebekah stating when she can return [...]
--- OUTSIDE RECORDS SUMMARY | 2021-11-15 11:56 | XMS_ITS | Encounter Summary ---
:1980 Author Organization [facility] Address [address] [place] [address] Care Team Providers Name Role Phone Unavailable Primary Care Provider Unavailable Encounter Details Date Type Department Care Team Description 04/29/2020 Orders Only Department of Gail Reno V., Abscess Abd ominopelvic Obstetrics and Raissa, M.B.A. (HCC) (Primar y Dx) Gynecology in [place], [place] [address] [place] [address] Social History Tobacco Use Types Packs/Day Years [...]
--- OUTSIDE RECORDS SUMMARY | 2021-11-15 11:56 | XMS_ITS | Encounter Summary ---
:1980 Author Organization [facility] Address [address] [place] [address] Care Team Providers Name Role Phone Unavailable Primary Care Provider Unavailable Encounter Details Date Type Department Care Team Description 04/29/2020 Ancillary Procedure Department of Radiology Kelly Reno V., in [facility] isai Haji, M.B.A. [address] [place] [address] Social History Tobacco Use Types Packs/Day Years Used Date Smoking Tobacco: Former Sex Assigned at Date Recorded Not on file documented as of this encounter Plan of Treatment Not on filedocumented as of this encounter Procedures Procedure Name Priority Date/Time Associated Comments Diagnosis INTERPRETATION OF RAD - Routine 04/29/2020 11:53 Resul ts for OUTSIDE CT ABDOMEN (most inpatients PM CDT this procedure AND OR PELVIS and all are in the outpatients) results section. documented in this encounter Results Interpretation of Outside CT Abdomen and or [...] Gail Reno M.D., M.B.A. IMG CT PROCEDURES documented in this encounter Visit Diagnoses Not on filedocumented in this encounter
--- OUTSIDE RECORDS SUMMARY | 2021-11-15 11:56 | XMS_ITS | Encounter Summary ---
:1980 Author Organization [facility] Address [address] [place] [address] Care Team Providers Name Role Phone Unavailable [...]
--- OUTSIDE RECORDS SUMMARY | 2021-11-15 11:56 | XMS_ITS | Clinical Summary ---
:1980 Author Organization [facility] Address [address] [place] [address] Care Team Providers Name Role Phone Unavailable Primary Care Provider Unavailable Source Comments Patient records contain information from all sites at [facility]. For routine questions regarding patient records, call [phone] during business hours, M-F 8:00 AM - 5:00 PM Central Time. Record requests for emergency care only can be directed to [phone] at any time.[facility] Allergies Active Allergy Reactions Severity Noted [...] Health Maintenance Due Date Last Done Comments HIV Screening 1980 Hepatitis B Vaccines (1 of 1980 3 - 3-dose series) Hepatitis C Screening 1980 Lipid (Cholesterol) 1980 Screening Mammogram 1980 Thyroid Stimulating Hormone 1980 (TSH) test for thyroid function Depression Screening 02/05/2021 (Annual PHQ-2) COVID-19 Vaccine (4 - 04/14/2021 02/17/2021, 03/10/2020, Booster for Moderna series) 02/12/2020 Influenza Vaccine (#1) 2021 11/15/2020, 10/23/2019, 11/15/2018, Additional history exists DTaP,Tdap,and Td Vaccines 03/07/2022 03/07/2012, 03/07/2012 , (3 - Td or Tdap) 10/02/2006, Additional history exists Pneumococcal vaccine (0-64 Aged Out No lo nger eligible years) based on patient 's age to complete this topic Insurance Payer Benefit Plan Subscriber ID Effective Phone Address Typ e / Group Dates BLUE [facility] BLUE [id number] 2018-Prese ATTN: Yoan brooke HMO BLUE SHIELD PLUS O [facility] SERVICE [place] [address] [address] [place] [address] [phone] (Home) [place]gado [phone]
--- OUTSIDE RECORDS SUMMARY | 2021-11-15 11:56 | XMS_ITS | Encounter Summary ---
:1980 Author Organization [facility] Address [address] [place] [address] Care Team Providers Name Role Phone Unavailable Primary Care Provider Unavailable Reason for Visit Reason Comments COVID Inquiry Encounter Details Date Type Department Care Team Description 02/21/2021 Clinical Communication Central Appointment HelderedABIMAEL briceno Office in [facility] [place] [facility] [address] [place], [place] [id number] Social History Tobacco Use Types Packs/Day Years [...] LABORATORY CONFIRMED case ofCOVID-19?: Yes exposure noted. Bowen patient, instruct to quarantine, testing indicated (End Screening) Plan: Endpoint recommendation: Testing indicated, advised to be swabbed for COVID-19 Only , sent to [facility] located at [address] [place] [address] ([facility]). An appointment is required for testing, please call [phone] Sunday-Sunday 7am to 6pm and Sunday & [...] sending patient for testing in [facility] or [facility], route encounter to the correct testing pool. CUTTER documented in this encounter Plan of Treatment Not on filedocumented as of this encounter Visit Diagnoses Not on filedocumented in this encounter
--- OUTSIDE RECORDS SUMMARY | 2021-11-15 11:56 | XMS_ITS | Encounter Summary ---
:1980 Author Organization [facility] Address [address] [place] [address] Care Team Providers Name Role Phone Unavailable Primary Care Provider Unavailable Encounter Details Date Type Department Care Team Description 03/03/2006 Hospital Encounter [facility]X [facility] ED Anthony Cortes D.O. Social History Tobacco Use Types Packs/Day Years Used Date Smoking Tobacco: Never Assessed Sex Assigned at Date Recorded Not on file documented as of this encounter Plan of Treatment Not on filedocumented as of this encounter Visit Diagnoses Not on filedocumented in this encounter
--- OUTSIDE RECORDS SUMMARY | 2021-11-15 11:57 | XMS_ITS | Encounter Summary ---
:1980 Author Organization [facility] Address [address] [place] [address] Care Team Providers Name Role Phone Unavailable Primary Care Provider Unavailable Encounter Details Date Type Department Care Team Description 12/15/2005 Hospital Encounter [facility]X [facility] ALCL Doyle Francis M.D. Social History Tobacco Use Types Packs/Day Years Used Date Smoking Tobacco: Never Assessed Sex Assigned at Date Recorded Not on file documented as of this encounter Plan of Treatment Not on filedocumented as of this encounter Visit Diagnoses Not on filedocumented in this encounter
--- OUTSIDE RECORDS SUMMARY | 2021-11-15 11:57 | XMS_ITS | Encounter Summary ---
:1980 Author Organization [facility] Address [address] [place] [address] Care Team Providers Name Role Phone Unavailable Primary Care Provider Unavailable Encounter Details Date Type Department Care Team Description 10/01/2005 Hospital Encounter HX [facility] AL[facility] URGENTCAR Provider, [place] michelle Social History Tobacco Use Types Packs/Day Years Used Date Smoking Tobacco: Never Assessed Sex Assigned at Date Recorded Not on file documented as of this encounter Plan of Treatment Not on filedocumented as of this encounter Visit Diagnoses Not on filedocumented in this encounter
--- OUTSIDE RECORDS SUMMARY | 2021-11-15 11:57 | XMS_ITS | Encounter Summary ---
:1980 Author Organization [facility] Address [address] [place] [address] Care Team Providers Name Role Phone Unavailable Primary Care Provider Unavailable Encounter Details Date Type Department Care Team Description 12/14/2005 Hospital Encounter HX NO MAPPING [place] [address] Social History Tobacco Use Types Packs/Day Years Used Date Smoking Tobacco: Never Assessed Sex Assigned at Date Recorded Not on file documented as of this encounter Plan of Treatment Not on filedocumented as of this encounter Visit Diagnoses Not on filedocumented in this encounter
--- OUTSIDE RECORDS SUMMARY | 2021-11-15 11:57 | XMS_ITS | Encounter Summary ---
:1980 Author Organization [facility] Address [address] [place] [address] Care Team Providers Name Role Phone Unavailable Primary Care Provider Unavailable Encounter Details Date Type Department Care Team Description 11/27/2005 Hospital Encounter HX [facility] ALCL [place] [address] Social History Tobacco Use Types Packs/Day Years Used Date Smoking Tobacco: Never Assessed Sex Assigned at Date Recorded Not on file documented as of this encounter Plan of Treatment Not on filedocumented as of this encounter Visit Diagnoses Not on filedocumented in this encounter
--- OUTSIDE RECORDS SUMMARY | 2021-11-15 11:57 | XMS_ITS | Encounter Summary ---
:1980 Author Organization [facility] Address [address] [place] [address] Care Team Providers Name Role Phone Unavailable [...]
--- OUTSIDE RECORDS SUMMARY | 2021-11-15 11:57 | XMS_ITS | Encounter Summary ---
:1980 Author Organization [facility] Address [address] [place] [address] Care Team Providers Name Role Phone Unavailable Primary Care Provider Unavailable Encounter Details Date Type Department Care Team Description 01/04/2006 Hospital Encounter [facility]X [facility] Robin Huitron M.D. [address], [address] [place], [place] [address] (Wo rk) Social History Tobacco Use Types Packs/Day Years Used Date Smoking Tobacco: Never Assessed Sex Assigned at Date Recorded Not on file documented as of this encounter Plan of Treatment Not on filedocumented as of this encounter Visit Diagnoses Not on filedocumented in this encounter
--- OUTSIDE RECORDS SUMMARY | 2021-11-15 11:57 | XMS_ITS | Encounter Summary ---
:1980 Author Organization [facility] Address [address] [place] [address] Care Team Providers Name Role Phone Unavailable Primary Care Provider Unavailable Encounter Details Date Type Department Care Team Description 10/10/2005 Hospital Encounter [facility]X [facility] Doyle Francis M.D. Social History Tobacco Use Types Packs/Day Years Used Date Smoking Tobacco: Never Assessed Sex Assigned at Date Recorded Not on file documented as of this encounter Plan of Treatment Not on filedocumented as of this encounter Visit Diagnoses Not on filedocumented in this encounter
--- OUTSIDE RECORDS SUMMARY | 2021-11-15 11:57 | XMS_ITS | Encounter Summary ---
:1980 Author Organization [facility] Address [address] [place] [address] Care Team Providers Name Role Phone Unavailable Primary Care Provider Unavailable Encounter Details Date Type Department Care Team Description 10/18/2005 Hospital Encounter [facility]X [facility] AL[facility] URGENTCAR Wei Carballo, P.A.-CKiran [address] [place], [place] [address] (Wo rk) Social History Tobacco Use Types Packs/Day Years Used Date Smoking Tobacco: Never Assessed Sex Assigned at Date Recorded Not on file documented as of this encounter Plan of Treatment Not on filedocumented as of this encounter Visit Diagnoses Not on filedocumented in this encounter
--- OUTSIDE RECORDS SUMMARY | 2021-11-15 11:57 | XMS_ITS | Encounter Summary ---
:1980 Author Organization [facility] Address [address] [place] [address] Care Team Providers Name Role Phone Unavailable [...]
--- OUTSIDE RECORDS SUMMARY | 2021-11-15 11:57 | XMS_ITS | Encounter Summary ---
:1980 Author Organization [facility] Address [address] [place] [address] Care Team Providers Name Role Phone Unavailable [...]
--- OUTSIDE RECORDS SUMMARY | 2021-11-15 11:57 | XMS_ITS | Encounter Summary ---
:1980 Author Organization [facility] Address [address] [place] [address] Care Team Providers Name Role Phone Unavailable [...]
--- OUTSIDE RECORDS SUMMARY | 2021-11-15 11:57 | XMS_ITS | Encounter Summary ---
:1980 Author Organization [facility] Address [address] [place] [address] Care Team Providers Name Role Phone Unavailable [...]
--- OUTSIDE RECORDS SUMMARY | 2021-11-15 11:57 | XMS_ITS | Encounter Summary ---
:1980 Author Organization [facility] Address [address] [place] [address] Care Team Providers Name Role Phone Unavailable Primary Care Provider Unavailable Encounter Details Date Type Department Care Team Description 10/20/2005 Hospital Encounter [facility]X [facility] Robin Huitron M.D. [address], [address] [place], [place] [address] (Wo rk) Social History Tobacco Use Types Packs/Day Years Used Date Smoking Tobacco: Never Assessed Sex Assigned at Date Recorded Not on file documented as of this encounter Plan of Treatment Not on filedocumented as of this encounter Visit Diagnoses Not on filedocumented in this encounter
--- OUTSIDE RECORDS SUMMARY | 2021-11-15 11:57 | XMS_ITS | Encounter Summary ---
:1980 Author Organization [facility] Address [address] [place] [address] Care Team Providers Name Role Phone Unavailable Primary Care Provider Unavailable Encounter Details Date Type Department Care Team Description 08/22/2005 Hospital En[facility] Social History Tobacco Use Types Packs/Day Years Used Date Smoking Tobacco: Never Assessed Sex Assigned at Date Recorded Not on file documented as of this encounter Plan of Treatment Not on filedocumented as of this encounter Visit Diagnoses Not on filedocumented in this encounter
--- OUTSIDE RECORDS SUMMARY | 2021-11-15 11:57 | XMS_ITS | Encounter Summary ---
:1980 Author Organization [facility] Address [address] [place] [address] Care Team Providers Name Role Phone Unavailable Primary Care Provider Unavailable Encounter Details Date Type Department Care Team Description 02/12/2006 Hospital Encounter [facility]X [facility] Doyle Francis M.D. Social History Tobacco Use Types Packs/Day Years Used Date Smoking Tobacco: Never Assessed Sex Assigned at Date Recorded Not on file documented as of this encounter Plan of Treatment Not on filedocumented as of this encounter Visit Diagnoses Not on filedocumented in this encounter
--- OUTSIDE RECORDS SUMMARY | 2021-11-15 11:57 | XMS_ITS | Encounter Summary ---
:1980 Author Organization [facility] Address [address] [place] [address] Care Team Providers Name Role Phone Unavailable Primary Care Provider Unavailable Encounter Details Date Type Department Care Team Description 10/18/2005 Hospital Encounter HX [facility] Robin Huitron M.D. [address], [address] [place], [place] [address] (Wo rk) Social History Tobacco Use Types Packs/Day Years Used Date Smoking Tobacco: Never Assessed Sex Assigned at Date Recorded Not on file documented as of this encounter Plan of Treatment Not on filedocumented as of this encounter Visit Diagnoses Not on filedocumented in this encounter
--- OUTSIDE RECORDS SUMMARY | 2021-11-15 11:57 | XMS_ITS | Encounter Summary ---
:1980 Author Organization [facility] Address [address] [place] [address] Care Team Providers Name Role Phone Unavailable [...]
--- OUTSIDE RECORDS SUMMARY | 2021-11-15 11:57 | XMS_ITS | Encounter Summary ---
:1980 Author Organization [facility] Address [address] [place] [address] Care Team Providers Name Role Phone Unavailable [...]
--- OUTSIDE RECORDS SUMMARY | 2021-11-15 11:57 | XMS_ITS | Encounter Summary ---
:1980 Author Organization [facility] Address [address] [place] [address] Care Team Providers Name Role Phone Unavailable [...]
--- OUTSIDE RECORDS SUMMARY | 2021-11-15 11:57 | XMS_ITS | Encounter Summary ---
:1980 Author Organization [facility] Address [address] [place] [address] Care Team Providers Name Role Phone Unavailable [...]
--- OUTSIDE RECORDS SUMMARY | 2021-11-15 11:57 | XMS_ITS | Encounter Summary ---
:1980 Author Organization [facility] Address [address] [place] [address] Care Team Providers Name Role Phone Unavailable [...]
--- OUTSIDE RECORDS SUMMARY | 2021-11-15 11:57 | XMS_ITS | Encounter Summary ---
:1980 Author Organization [facility] Address [address] [place] [address] Care Team Providers Name Role Phone Unavailable [...]
--- OUTSIDE RECORDS SUMMARY | 2021-11-15 11:57 | XMS_ITS | Encounter Summary ---
:1980 Author Organization [facility] Address [address] [place] [address] Care Team Providers Name Role Phone Unavailable Primary Care Provider Unavailable Encounter Details Date Type Department Care Team Description 11/20/2005 Hospital Encounter HX [facility] PODIATRY Norris Pugh, D.P.M. Social History Tobacco Use Types Packs/Day Years Used Date Smoking Tobacco: Never Assessed Sex Assigned at Date Recorded Not on file documented as of this encounter Plan of Treatment Not on filedocumented as of this encounter Visit Diagnoses Not on filedocumented in this encounter
--- OUTSIDE RECORDS SUMMARY | 2021-11-15 11:57 | XMS_ITS | Encounter Summary ---
:1980 Author Organization [facility] Address [address] [place] [address] Care Team Providers Name Role Phone Unavailable Primary Care Provider Unavailable Encounter Details Date Type Department Care Team Description 12/18/2005 Hospital Encounter HX NO MAPPING [place] [address] Social History Tobacco Use Types Packs/Day Years Used Date Smoking Tobacco: Never Assessed Sex Assigned at Date Recorded Not on file documented as of this encounter Plan of Treatment Not on filedocumented as of this encounter Visit Diagnoses Not on filedocumented in this encounter
--- OUTSIDE RECORDS SUMMARY | 2021-11-15 11:57 | XMS_ITS | Encounter Summary ---
:1980 Author Organization [facility] Address [address] [place] [address] Care Team Providers Name Role Phone Unavailable [...]
--- OUTSIDE RECORDS SUMMARY | 2021-11-15 11:57 | XMS_ITS | Encounter Summary ---
:1980 Author Organization [facility] Address [address] [place] [address] Care Team Providers Name Role Phone Unavailable Primary Care Provider Unavailable Encounter Details Date Type Department Care Team Description 02/12/2006 Hospital Encounter HX [facility] Valentina Landis, C.N.P., R.N. Social History Tobacco Use Types Packs/Day Years Used Date Smoking Tobacco: Never Assessed Sex Assigned at Date Recorded Not on file documented as of this encounter Plan of Treatment Not on filedocumented as of this encounter Visit Diagnoses Not on filedocumented in this encounter
--- OUTSIDE RECORDS SUMMARY | 2021-11-15 11:57 | XMS_ITS | Encounter Summary ---
:1980 Author Organization [facility] Address [address] [place] [address] Care Team Providers Name Role Phone Unavailable [...]
--- OUTSIDE RECORDS SUMMARY | 2021-11-15 11:57 | XMS_ITS | Encounter Summary ---
:1980 Author Organization [facility] Address [address] [place] [address] Care Team Providers Name Role Phone Unavailable [...]
--- OUTSIDE RECORDS SUMMARY | 2021-11-15 11:57 | XMS_ITS | Encounter Summary ---
:1980 Author Organization [facility] Address [address] [place] [address] Care Team Providers Name Role Phone Unavailable Primary Care Provider Unavailable Encounter Details Date Type Department Care Team Description 10/26/2005 Hospital Encounter HX [facility] Angelina Storey S, ADAM, C.N.P. [address] [place] [address] (Wo rk) Social History Tobacco Use Types Packs/Day Years Used Date Smoking Tobacco: Never Assessed Sex Assigned at Date Recorded Not on file documented as of this encounter Plan of Treatment Not on filedocumented as of this encounter Visit Diagnoses Not on filedocumented in this encounter
--- OUTSIDE RECORDS SUMMARY | 2021-11-15 11:57 | XMS_ITS | Encounter Summary ---
:1980 Author Organization [facility] Address [address] [place] [address] Care Team Providers Name Role Phone Unavailable Primary Care Provider Unavailable Encounter Details Date Type Department Care Team Description 10/02/2005 Hospital Encounter HX [facility] Elizabeth Meredith, LiuAKiran-C. [address] [place], [place] [address] (Wo rk) Social History Tobacco Use Types Packs/Day Years Used Date Smoking Tobacco: Never Assessed Sex Assigned at Date Recorded Not on file documented as of this encounter Plan of Treatment Not on filedocumented as of this encounter Visit Diagnoses Not on filedocumented in this encounter
--- OUTSIDE RECORDS SUMMARY | 2021-11-15 11:57 | XMS_ITS | Encounter Summary ---
:1980 Author Organization [facility] Address [address] [place] [address] Care Team Providers Name Role Phone Unavailable [...]
--- OUTSIDE RECORDS SUMMARY | 2021-11-15 11:58 | XMS_ITS | Encounter Summary ---
:1980 Author Organization [facility] Address [address] [place] [address] Care Team Providers Name Role Phone Unavailable [...]
--- OUTSIDE RECORDS SUMMARY | 2021-11-15 11:58 | XMS_ITS | Encounter Summary ---
:1980 Author Organization [facility] Address [address] [place] [address] Care Team Providers Name Role Phone Unavailable Primary Care Provider Unavailable Encounter Details Date Type Department Care Team Description 08/22/2002 Hospital Encounter HX [facility] Ritesh Goins D.OKiran [address] [place], [place] [address] (Wo rk) Social History Tobacco Use Types Packs/Day Years Used Date Smoking Tobacco: Never Assessed Sex Assigned at Date Recorded Not on file documented as of this encounter Plan of Treatment Not on filedocumented as of this encounter Visit Diagnoses Not on filedocumented in this encounter
--- OUTSIDE RECORDS SUMMARY | 2021-11-15 11:58 | XMS_ITS | Encounter Summary ---
:1980 Author Organization [facility] Address [address] [place] [address] Care Team Providers Name Role Phone Unavailable [...]
--- OUTSIDE RECORDS SUMMARY | 2021-11-15 11:58 | XMS_ITS | Encounter Summary ---
:1980 Author Organization [facility] Address [address] [place] [address] Care Team Providers Name Role Phone Unavailable [...]
--- OUTSIDE RECORDS SUMMARY | 2021-11-15 11:58 | XMS_ITS | Encounter Summary ---
:1980 Author Organization [facility] Address [address] [place] [address] Care Team Providers Name Role Phone Unavailable Primary Care Provider Unavailable Encounter Details Date Type Department Care Team Description 07/13/2005 [facility] Carla Travis, [facility] [address] [place], [place] [id number] Social History Tobacco Use Types Packs/Day Years [...]
--- OUTSIDE RECORDS SUMMARY | 2021-11-15 11:58 | XMS_ITS | Encounter Summary ---
:1980 Author Organization [facility] Address [address] [place] [address] Care Team Providers Name Role Phone Unavailable Primary Care Provider Unavailable Encounter Details Date Type Department Care Team Description 01/30/2001 Hospital Encounter [facility] Demarco Ferguson C, P.A. Social History Tobacco Use Types Packs/Day Years Used Date Smoking Tobacco: Never Assessed Sex Assigned at Date Recorded Not on file documented as of this encounter Plan of Treatment Not on filedocumented as of this encounter Visit Diagnoses Not on filedocumented in this encounter
--- OUTSIDE RECORDS SUMMARY | 2021-11-15 11:58 | XMS_ITS | Encounter Summary ---
:1980 Author Organization [facility] Address [address] [place] [address] Care Team Providers Name Role Phone Unavailable Primary Care Provider Unavailable Encounter Details Date Type Department Care Team Description 09/01/2002 Hospital Encounter [facility]X [facility] Celine Wilson, EliuO. [address] [place], [place] [address] (Wo rk) Social History Tobacco Use Types Packs/Day Years Used Date Smoking Tobacco: Never Assessed Sex Assigned at Date Recorded Not on file documented as of this encounter Plan of Treatment Not on filedocumented as of this encounter Visit Diagnoses Not on filedocumented in this encounter
--- OUTSIDE RECORDS SUMMARY | 2021-11-15 11:58 | XMS_ITS | Encounter Summary ---
:1980 Author Organization [facility] Address [address] [place] [address] Care Team Providers Name Role Phone Unavailable Primary Care Provider Unavailable Encounter Details Date Type Department Care Team Description 02/27/2001 Hospital Encounter [facility] Justyn Camacho M.D. Social History Tobacco Use Types Packs/Day Years Used Date Smoking Tobacco: Never Assessed Sex Assigned at Date Recorded Not on file documented as of this encounter Plan of Treatment Not on filedocumented as of this encounter Visit Diagnoses Not on filedocumented in this encounter
--- OUTSIDE RECORDS SUMMARY | 2021-11-15 11:58 | XMS_ITS | Encounter Summary ---
:1980 Author Organization [facility] Address [address] [place] [address] Care Team Providers Name Role Phone Unavailable Primary Care Provider Unavailable Encounter Details Date Type Department Care Team Description 12/17/2000 Hospital Encounter [facility] [place] [phone] (Wo rk) Social History Tobacco Use Types Packs/Day Years Used Date Smoking Tobacco: Never Assessed Sex Assigned at Date Recorded Not on file documented as of this encounter Plan of Treatment Not on filedocumented as of this encounter Visit Diagnoses Not on filedocumented in this encounter
--- OUTSIDE RECORDS SUMMARY | 2021-11-15 11:58 | XMS_ITS | Encounter Summary ---
:1980 Author Organization [facility] Address [address] [place] [address] Care Team Providers Name Role Phone Unavailable [...]
--- OUTSIDE RECORDS SUMMARY | 2021-11-15 11:58 | XMS_ITS | Clinical Summary ---
:1980 Author Organization [facility] [place] [address] Care Team Providers Name Role Phone Jovana Lee MD Primary Care Provider [phone] Allergies Active Allergy Reactions Severity Noted Date Comments Ranitidine Edema Medications Medication Sig Dispensed Refills Start End Status Date Date ALBUTEROL 90 inhale 1 puff 0 Act rita MCG/ACTUATION AEROSOL by inhalation INHALER route every 4-6 hours as needed cholecalciferol Take 2 0 12/07/19 Acti ve (VITAMIN D3) 1,000 unit tablets by 12 tablet mouth once daily. For 8 weeks; then decrease to 2 tablets tablets daily omeprazole (PRILOSEC) Take 20 mg by 0 Active 20 mg Delayed-Release mouth. capsule levothyroxine 75 mcg once 0 08/27/19 Acti ve (SYNTHROID) 75 mcg daily. 21 tablet albuterol HFA (PRO-AIR; As directed 0 08/27/19 Active VENTOLIN; PROVENTIL) 90 PRN 21 mcg/actuation inhaler SUMAtriptan (IMITREX) 0 12/23/19 Active 50 mg tablet 21 Drysol 20 % external 0 12/23/19 Active solution 21 vortioxetine Take 1 Tablet 30 Tablet 2 07/01/19 Act rita (Trintellix) 20 mg (20 mg) by 22 tabletIndications: mouth once Recurrent major daily. depressive disorder, in partial remission (HC), Anxiety lisdexamfetamine Take 1 30 Capsule 0 09/20/19 Ac tive (VYVANSE) 60 mg Capsule (60 22 capsuleIndications: mg) by mouth ADHD (attention deficit once daily. hyperactivity disorder), inattentive type LORazepam (ATIVAN) 0.5 Take 1 Tablet 10 Tablet 2 10/28/19 Active mg tabIndications: (0.5 mg) by 22 Anxiety, mouth at Psychophysiological bedtime if insomnia needed for Anxiety or Sleep. #10 tabs to last 30 days celecoxib (CELEBREX) As Directed 0 09/30/19 Discontinued 200 mg capsule (*Pat ient states no longer taking/Not on sending facility l ist) valACYclovir (VALTREX) 0 12/23/19 Discontinued 1 gram tablet (*Mellisa ent states no longer taking/Not on sending facility l ist) QUEtiapine (SEROQUEL) Take 1 Tablet 30 Tablet 2 07/01/1910/06 Discontinued 50 mg (50 mg) by tabletIndications: mouth at Recurrent major bedtime. depressive disorder, in partial remission (HC), Borderline personality disorder (HC), Anxiety, Psychophysiological insomnia QUEtiapine (SEROQUEL) TAKE 1 30 Tablet 1 10/25/19 Discontinued 50 mg TABLET(50 MG) (*Amado rgic/Adve tabletIndications: BY MOUTH AT rse Rxn/Side Recurrent major BEDTIME Effe cts) depressive disorder, in partial remission (HC), Borderline personality disorder (HC), Anxiety, Psychophysiological insomnia Active Problems Problem Noted Date Controlled substance agreement signed 02/01/2021 Overview: 08/26/20 Lyn Rea MD/psychiatry Recurrent major depressive disorder, in partial remiss ion 08/07/2017 ADHD (attention deficit hyperactivity disorder), inatt entive type 03/21/2017 Borderline personality disorder 11/22/2016 Anxiety 11/22/2016 ALFONSO (obstructive sleep apnea) 12/07/2015 Alcohol abuse, unspecified 07/03/2006 Overview: last use 2006 History of substance use disorder 07/03/2006 Overview: cociane, mushrooms, crack last use 2006 Backache, unspecified 07/03/2006 Paraplegia 07/03/2006 Resolved Problems Problem Noted Date Resolved Date Controlled substance agreement signed 04/15/2019 Overview: Signed 04/15/2019 Dr Lyn Kennedy chiortiz Controlled substance agreement signed 12/13/2016 Overview: 11/22/16 signed .Dawna Deleon DNP, SPINNING BATH PERSON , MANAGER [employer]EARCH [employer] DEVELOPMENT/psychiatry/hc Moderate episode of recurrent major depressive disorder 11/0508/07/2017 Controlled substance agreement signed 06/21/2016 Overview: Signed: 05/27/15 Dr. Eben Cortes MD / psychiatry MAJOR DEPRESSION RECURRENT 09/12/2006 11/22/2016 Overview: Previous medications Citalopram (Celexa), Fluoxetine (Prozac) , Paroxetin (Paxil), Bupropion (Wellbutrin), Buspirone (Buspar), Venlafaxine (Effexor), Lamotrigine (Limictal), Aripiprazole (Abilify), Quetiapine (Seroquel) Depressive disorder, not elsewhere classified 07/03/2006 07/20/2011 Encounters Date Type Specialty Care Team Description 10/27/2021 Telemedicine Lyn Rea, Tel critical access hospitalth; Follow Up; Medication Keysha gement (Per ASSISTANT MEDIA BUYER Vyvanse 60m g #30 last sold on 08-31-21 ) 10/27/2021 Travel 10/25/[address] (CSA) 10/21/2021 Refill Lyn Rea, Ref ill Request (Quetiapine) from Last 3 Months Immunizations Name Administration [...] Date Former Smoker Cigarettes 1 Quit: 05/15/19 17 Smokeless Tobacco: Never Used Tobacco Cessation: Ready to Quit: Yes; C ounseling Given: Yes Comments: quit 10/2020 Alcohol Use Standard Drinks/Week Comments Yes 0 (1 standard drink = 0.6 oz pure alcoho l) rarely Alcohol Habits Answer Date Recorded How often do you have a drink containing alcohol? Not asked How many drinks containing alcohol do you have on a typical Not asked day when you are drinking? How often do you have six or more drinks on one occasion? No t asked Comment: rarely 10/27/2021 Sex Assigned at Date Recorded Female 09/17/2019 12:36 PM CDT COVID-19 Exposure Response Date Recorded In the last 10 days, have you been in contact with No / Unsu re 10/27/2021 8:55 AM CDT someone who was confirmed or suspected to have Coronavirus/COVID-19? Obstetrics History Last Filed Vital Signs Vital Sign Reading Time Taken Comments Blood Pressure 132/80 01/08/2020 4:59 PM [employer] Pulse 93 01/08/2020 4:59 PM [employer] Temperature 37.2 ??C (98.9 ??F) 01/08/2020 4:59 PM [employer] Respiratory Rate 18 03/22/2015 2:02 PM [employer] Oxygen Saturation 96% 01/08/2020 4:59 PM [employer] Inhaled Oxygen Concentration - - Weight 133.7 kg (294 lb 12.8 oz) 04/15/2019 2:09 PM CDT Height 164 cm (5' 4.57) 03/21/2017 4:35 PM [employer] Body Mass Index 49.72 03/21/2017 4:35 PM [employer] Plan of Treatment Health Maintenance Due Date Last Done Comments Pneumococcal series for age 19-64 02/05/1984 (1 - PCV) Hepatitis C screening for age 1202/05/1996 18-79 BMI (ht and wt on same day) for 03/21/2018 03/21/2017, 11/0 02/2015, age 18+ 09/23/2015, Additional history exists COVID-19 vaccine series (4 - 04/14/2021 02/17/2021, 021, Booster for Moderna series) 02/12/2020 Influenza for age 9-49 10/06/2021 10/23/2019, 11/15/2018, 11/15/2018, Additional history exists Tetanus booster 04/19/2022 04/19/2012 (Completed outside of [facility]), 03/07/2012, 10/02/2006, Additional history exists Pap test for age 21-65 06/26/2022 06/27/2019, 06/27/2019, 04/07/2014, Additional history exists Depression screening for age 12+ 10/27/2022 10/27/2021, , 02/09/2021, Additional history exists Tdap Completed 03/07/2012 Results Not on filefrom Last 3 Months Insurance Payer Benefit Plan / Subscriber ID Effective Dates Phone Addre ss Type Group WC WORKERS JAMILA BENSON [id number] 2019-Presen [address] [place] [address] [employer] [place] [place] [employer] [id number] 2018-Present [address] [address] [place] [address] [place] Workers Comp Self 1980 [address] (Home) [place] [phone] Care Teams 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
--- OUTSIDE RECORDS SUMMARY | 2021-11-15 11:58 | XMS_ITS | Encounter Summary ---
:1980 Author Organization [facility] Address [address] [place] [address] Care Team Providers Name Role Phone Unavailable Primary Care Provider Unavailable Encounter Details Date Type Department Care Team Description 08/10/2005 Hospital Encounter HX [facility] Angelina Storey S, ADAM, C.N.P. [address] [place] [address] (Wo rk) Social History Tobacco Use Types Packs/Day Years Used Date Smoking Tobacco: Never Assessed Sex Assigned at Date Recorded Not on file documented as of this encounter Plan of Treatment Not on filedocumented as of this encounter Visit Diagnoses Not on filedocumented in this encounter
--- OUTSIDE RECORDS SUMMARY | 2021-11-15 11:58 | XMS_ITS | Clinical Summary ---
:1980 Author Organization [facility] Address [address] [place] [address] Care Team Providers Name Role Phone Inactive, Administrativel Primary Care Provider [phone] Source Comments If you need additional information that is not available on Care Everywhere, please contact our Medical Records Department during business hours (Sunday - Sunday, 8 am - 5 pm) at . During nonbusiness hours, please contact our Trauma and Emergency Center at [facility] including [facility] and [facility] Medications Medications may not be up to [...] to complete this to pic Care Teams Marketing Research Coordinator Relationship Specialty Start Date End Date Inactive, Administrativel PCP - General 01/08/15 [address] [facility] [place] [address]
--- OUTSIDE RECORDS SUMMARY | 2021-11-15 11:58 | XMS_ITS | Encounter Summary ---
:1980 Author Organization [facility] Address [address] [place] [address] Care Team Providers Name Role Phone Unavailable Primary Care Provider Unavailable Encounter Details Date Type Department Care Team Description 06/01/2005 Interface Meds [facility] Family Practice Provider, 1980 [place] [address] Social History Tobacco Use Types [...]
--- OUTSIDE RECORDS SUMMARY | 2021-11-15 11:58 | XMS_ITS | Encounter Summary ---
:1980 Author Organization [facility] Address [address] [place] [address] Care Team Providers Name Role Phone Unavailable Primary Care Provider Unavailable Encounter Details Date Type Department Care Team Description 03/17/2004 Hospital Encounter [facility] Sarabjit Torres, Ph.D. Social History Tobacco Use Types Packs/Day Years Used Date Smoking Tobacco: Never Assessed Sex Assigned at Date Recorded Not on file documented as of this encounter Plan of Treatment Not on filedocumented as of this encounter Visit Diagnoses Not on filedocumented in this encounter
--- OUTSIDE RECORDS SUMMARY | 2021-11-15 11:58 | XMS_ITS | Encounter Summary ---
:1980 Author Organization [facility] Address [address] [place] [address] Care Team Providers Name Role Phone Unavailable Primary Care Provider Unavailable Encounter Details Date Type Department Care Team Description 01/01/2001 Hospital Encounter HX NO MAPPING Provider, Historical Social History Tobacco Use Types Packs/Day Years Used Date Smoking Tobacco: Never Assessed Sex Assigned at Date Recorded Not on file documented as of this encounter Plan of Treatment Not on filedocumented as of this encounter Visit Diagnoses Not on filedocumented in this encounter
--- OUTSIDE RECORDS SUMMARY | 2021-11-15 11:58 | XMS_ITS | Encounter Summary ---
:1980 Author Organization [facility] Address [address] [place] [address] Care Team Providers Name Role Phone Unavailable [...]
--- OUTSIDE RECORDS SUMMARY | 2021-11-15 11:58 | XMS_ITS | Encounter Summary ---
:1980 Author Organization [facility] Address [address] [place] [address] Care Team Providers Name Role Phone Unavailable Primary Care Provider Unavailable Encounter Details Date Type Department Care Team Description 08/19/2002 Hospital Encounter [facility]X [facility] Akash Galdamez W, P.A. [address] [place], [place] [id number] (Wo rk) Social History Tobacco Use Types Packs/Day Years Used Date Smoking Tobacco: Never Assessed Sex Assigned at Date Recorded Not on file documented as of this encounter Plan of Treatment Not on filedocumented as of this encounter Visit Diagnoses Not on filedocumented in this encounter
--- OUTSIDE RECORDS SUMMARY | 2021-11-15 11:58 | XMS_ITS | Encounter Summary ---
:1980 Author Organization [facility] Address [address] [place] [address] Care Team Providers Name Role Phone Unavailable Primary Care Provider Unavailable Encounter Details Date Type Department Care Team Description 07/22/2002 Hospital Encounter HX [facility] SURGERY Provider, Hist orical Social History Tobacco Use Types Packs/Day Years Used Date Smoking Tobacco: Never Assessed Sex Assigned at Date Recorded Not on file documented as of this encounter Plan of Treatment Not on filedocumented as of this encounter Visit Diagnoses Not on filedocumented in this encounter
--- OUTSIDE RECORDS SUMMARY | 2021-11-15 11:58 | XMS_ITS | Encounter Summary ---
:1980 Author Organization [facility] Address [address] [place] [address] Care Team Providers Name Role Phone Unavailable Primary Care Provider Unavailable Encounter Details Date Type Department Care Team Description 02/08/2003 Hospital Encounter [facility] Duarte Early M.D. [facility] [place] [address] (Wo rk) Social History Tobacco Use Types Packs/Day Years Used Date Smoking Tobacco: Never Assessed Sex Assigned at Date Recorded Not on file documented as of this encounter Plan of Treatment Not on filedocumented as of this encounter Visit Diagnoses Not on filedocumented in this encounter
== END 2021-10-22 12:20 | disposition home or self-care (01) ==
LOC: AMB 11-15 11:49
PROVIDERS: PCP Family Medicine; Visit Provider Family Medicine
DX: F41.9 Anxiety disorder, unspecified (principal)

== ENCOUNTER 2022-01-10 09:11 | Outpatient (CLI) | payer BC, SELFPAY ==
--- OUTSIDE RECORDS SUMMARY | 2022-01-10 09:44 | XMS_ITS | Encounter Summary ---
:1980 Author Organization [facility] Address [address] [place] [address] Care Team Providers Name Role Phone Unavailable Primary Care Provider Unavailable Reason for Visit Reason Onset Date Comments Outpatient COVID-19 Testing 02/21/2021 Encounter Details Date Type Department Care Team Description 02/21/2021 External Outreach Department of [facility] Kirby Hernandez Contact With And Medicine, [facility] Galina Bingham (Suspected) Exposure Building, in [address] To COVID-19 (Primary [place], [place] Dx) [address] [facility] [address] [place], [place] [phone] [address] (Work) [phone] Social History Tobacco Use Types Packs/Day Years Used Date Smoking Tobacco: Former Sex Assigned at Date Recorded Not on file documented as of this encounter Progress Notes Lala Fay R.N. - 02/21/2021 11:23 AM CST Encounter created for COVID-19 screening. 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 documented in this encounter Results SARS Coronavirus-2 RNA, V Asymptomatic (02/21/2021 1:15 PM STAINED GLASS GLAZIER HELPER) Patholo gist Method Time Signature SARS-CoV-2 Swab, 02/22/2021 MKTO Specimen Nasopharynx 4:28 AM STAINED GLASS GLAZIER HELPER Source SARS CoV-2 Undetected Undetected 02/22/2021 MKTO RNA, TMA 4:28 AM STAINED GLASS GLAZIER HELPER Comment: SARS-CoV-2 RNA absent. This result does not rule out COVID-19 in the patient, as the sensitivity of the test depends o n the timing of the specimen collection and the quality of the specim en. Result should be correlated with patient's history and clinical presentat ion. ----ADDITIONAL INFORMATION---- This molecular amplification test was pe rformed using the Aptima SARS-CoV-2 assay ([employer] on the Savvy Cellar Winess tem under emergency use authorization (EUA) by the U.S. Food and Drug Administ ration. Fact sheets for this EUA assay can be fo und at the following links: For Healthcare Providers: https://www.Naehas a.gov/media/540764/download For Patients: https://www.fda.gov/media/ 449113/download Specimen Anatomical Collection Method Collection Time Receive d Time (Source) Location / / Volume Laterality Varies 02/21/2021 1:15 PM 9:53 (Nasopharynx) STAINED GLASS GLAZIER HELPER PM STAINED GLASS GLAZIER HELPER Kirby Hernandez D.O. LAB MICROBIOLOGY - GENERAL O RDERABLES Performing Organization Address City/State/ZIP Code Phon e Number [facility]- [address] [place] [id number] [place] [address] [place] [address] [address] documented in this encounter Visit Diagnoses Diagnosis Contact With And (Suspected) Exposure To COVID-19 - Primary documented in this encounter Additional Health Concerns Infection Onset Date Last Indicated Resolved Time COVID19 Pending 02/21/2021 02/21/2021 02/22/2021 4:28 AM STAINED GLASS GLAZIER HELPER documented as of this encounter
--- OUTSIDE RECORDS SUMMARY | 2022-01-10 09:44 | XMS_ITS | Encounter Summary ---
:1980 Author Organization [facility] Address [address] [place] [address] Care Team Providers Name Role Phone Unavailable Primary Care Provider Unavailable Encounter Details Date Type Department Care Team Description 02/21/2021 Admin Visit Department of Family Medicine, [address] [address] [facility] [phone] Social History Tobacco Use Types Packs/Day Years Used Date Smoking Tobacco: Former Sex Assigned at Date Recorded Not on file documented as of this encounter Plan of Treatment Not on filedocumented as of this encounter Visit Diagnoses Not on filedocumented in this encounter Additional Health Concerns Infection Onset Date Last Indicated Resolved Time COVID19 Pending 02/21/2021 02/21/2021 02/22/2021 4: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
--- OUTSIDE RECORDS SUMMARY | 2022-01-10 09:44 | XMS_ITS | Clinical Summary ---
:1980 Author Organization [facility] Address [address] [place] [address] Care Team Providers Name Role Phone Unavailable Primary Care Provider Unavailable Source Comments Patient records contain information from all sites at [facility]. For routine questions regarding patient records, call [phone] during business hours, M-F 8:00 AM - 5:00 PM Central Time. Record requests for emergency care only can be directed to [phone] at any time.[facility] Allergies Active Allergy Reactions Severity Noted [...] (Cholesterol) 1980 Screening Mammogram 1980 Thyroid Stimulating 1980 Hormone (TSH) test for thyroid function Depression Screening 02/05/2021 (Annual PHQ-2) COVID-19 Vaccine (4 - 04/14/2021 02/17/2021, 03/10/2020, Booster for Moderna 02/12/2020 series) Influenza Vaccine (#1) 2021 11/15/2020, 10/23/2019, 11/15/2018, Additional history exists DTaP,Tdap,and Td Vaccines 03/07/2022 03/07/2012, 03/07/2012 , (3 - Td or Tdap) 10/02/2006, Additional history exists Cervical Cancer Screening Discontinued 07/15/2013 (Performed elsewhere) Pneumococcal vaccine (0-64 Aged Out No lo nger eligible years) based on patient 's age to complete this topic Insurance Payer Benefit Plan Subscriber ID Effective Phone Address Typ e / Group Dates [facility]UE [facility] BLUE [id number] 2018-Prese ATTN: Yoan brooke O BLUE SHIELD PLUS O [facility] SERVICE [place] [address] [address] [place] [address] [phone] [place] [address]
--- OUTSIDE RECORDS SUMMARY | 2022-01-10 09:45 | XMS_ITS | Encounter Summary ---
:1980 Author Organization [facility] Address [address] [place] [address] Care Team Providers Name Role Phone Unavailable Primary Care Provider Unavailable Reason for Visit Reason Comments Communication Encounter Details Date Type Department Care Team Description 05/24/2020 Clinical Communication Department of Gail Reno C ommunication Obstetrics and Raissa M.B.A. Gynecology in [place], [place] [address] [place] [id number] Social History Tobacco Use Types Packs/Day Years [...] Left message for patient to call me ([phone]). Will also send her an e-mail with [...] clearer letter be faxed to them at [phone] Attn: Rebekah stating when she can return [...]
--- OUTSIDE RECORDS SUMMARY | 2022-01-10 09:45 | XMS_ITS | Encounter Summary ---
:1980 Author Organization [facility] Address [address] [place] [address] Care Team Providers Name Role Phone Unavailable [...]
--- OUTSIDE RECORDS SUMMARY | 2022-01-10 09:45 | XMS_ITS | Encounter Summary ---
:1980 Author Organization [facility] Address [address] [place] [address] Care Team Providers Name Role Phone Unavailable Primary Care Provider Unavailable Encounter Details Date Type Department Care Team Description 04/24/2009 Hospital Encounter [facility] Bobo Ness M.D. Social History Tobacco Use Types Packs/Day Years Used Date Smoking Tobacco: Never Assessed Sex Assigned at Date Recorded Not on file documented as of this encounter Progress Notes Antony Ness M.D. - 04/24/2009 12:03 PM CDT [id number] SUBJECTIVE Comes in because of pain on her legs. States she lives in [place] near the [facility], is here visiting. As she was driving [...] symptomatology. DIAGNOSIS Leg pain. Antony Ness MD//briseida #[id number] cc: The provider is no longer available to sign documents. The report will be filed without authentication. Electronically Signed By:ANTONY NESS MD On 12/28/2009 11:37 am Modified by:ANTONY NESS MD On 12/28/2009 11:37 am Source: [facility] FSHDICTAPHONESYS Document Id: [id number] ER MACHINE documented in this encounter Miscellaneous Notes Miscellaneous - Martinez Goodson, R.N. - 04/24/2009 12:22 PM CDT Adult Environmental Health Physician Intake/History Adult Environmental Health Physician Intake/History Entered On: 04/24/2009 12:23 CDT Performed On: 04/24/2009 12:22 CDT by MARTINEZ GOODSON gyro compass tester Chief Complaint: legs tight--cannot walk Onset of Symptoms: yesterday Ambulatory Intake Additional Information: hx of spastic parapelgia Temperature Core: 35.0DegC(Converted to: 95.0DegF) (LOW) Peripheral Pulse Rate: 101bpm (HI) Oxygen Therapy: Room air Systolic Blood Pressure: 131mmHg Diastolic Blood Pressure: 85mmHg NIBP Mean: 100mmHg BP Location: Right upper extremity MARTINEZ GOODSON RN - 04/24/2009 12:22 CDT Subjective Pain Symptoms: Yes MARTNIEZ GOODSON RN - 04/24/2009 12:22 CDT Pain [...] RN; Reviewed Date: 04/24/2009 12:20 CDT Source: [email or web address] Document Id: [id number]!24 documented in this encounter Plan of Treatment Not on filedocumented as of this encounter Visit Diagnoses Not on filedocumented in this encounter
--- OUTSIDE RECORDS SUMMARY | 2022-01-10 09:45 | XMS_ITS | Encounter Summary ---
:1980 Author Organization [facility] Address [address] [place] [address] Care Team Providers Name Role Phone Unavailable [...]
--- OUTSIDE RECORDS SUMMARY | 2022-01-10 09:45 | XMS_ITS | Encounter Summary ---
:1980 Author Organization [facility] Address [address] [place] [address] Care Team Providers Name Role Phone Unavailable [...]
--- OUTSIDE RECORDS SUMMARY | 2022-01-10 09:45 | XMS_ITS | Encounter Summary ---
:1980 Author Organization [facility] Address [address] [place] [address] Care Team Providers Name Role Phone Unavailable Primary Care Provider Unavailable Encounter Details Date Type Department Care Team Description 04/29/2020 Orders Only Department of Gail Reno V., Abscess Abd ominopelvic Obstetrics and Raissa M.B.A. (HCC) (Primar y Dx) Gynecology in [place], [place] [address] [place] [address] Social History Tobacco Use Types Packs/Day Years [...]
--- OUTSIDE RECORDS SUMMARY | 2022-01-10 09:45 | XMS_ITS | Encounter Summary ---
:1980 Author Organization [facility] Address [address] [place] [address] Care Team Providers Name Role Phone Unavailable [...]
--- OUTSIDE RECORDS SUMMARY | 2022-01-10 09:45 | XMS_ITS | Encounter Summary ---
:1980 Author Organization [facility] Address [address] [place] [address] Care Team Providers Name Role Phone Unavailable [...]
--- OUTSIDE RECORDS SUMMARY | 2022-01-10 09:45 | XMS_ITS | Encounter Summary ---
:1980 Author Organization [facility] Address [address] [place] [address] Care Team Providers Name Role Phone Unavailable Primary Care Provider Unavailable Reason for Visit Auth/Cert Specialty Diagnoses / Procedures Referred By Contact Refer red To Contact Diagnoses Abscess of vulva Procedures DIR Referral ID Status Reason Start Date Expiration Date Visits Requ ested Visits Authorized [id number] 1 1 Encounter Details Date Type Department Care Team Description 04/29/2020 - Hospital [facility] Famuyide, Abscess Abdomin opelvic 04/30/2020 Encounter [facility] ([facility]) (Primary Dx) [facility]NaniKiran [facility] [address] [facility] [place], [place] Floor [address] [address] [facility] [phone] [place], [place] (Work) [phone] Social History Tobacco Use [...] PM CDT DISCHARGE SUMMARY BRIEF OVERVIEW Hospital: [facility] Discharge Provider: Araseli Everett M.B.B.S. Primary Team: T Gynecologic Surgery - Chief No primary care provider on file. Primary Care Provider Phone Number: None Primary Care Provider Fax Number: None Other Providers: Dr. Guillen, [place] Admission Date: 04/29/2020 Discharge Date: 04/30/2020 PRINCIPAL DIAGNOSIS Abscess Abdominopelvic (HCC) This is thought to be related to recent laparoscopic hysterectomy at outside hospital. SECONDARY DIAGNOSES Obesity DISCHARGE DISPOSITION Home or Self Care [1] ACTIVE ISSUES REQUIRING FOLLOW UP Please keep your appointment with your local groundwater monitoring technician OUTPATIENT FOLLOW UP For appointment details refer to your Patient Appointment Guide. TEST RESULTS PENDING AT DISCHARGE Pending Labs Order Current Status Bacteria / Yulissa Culture, Blood #1 Preliminary result Bacteria / Yulissa Culture, Blood #2 Preliminary result DETAILS OF HOSPITAL STAY REASON FOR ADMISSION Abscess Abdominopelvic (HCC) HOSPITAL COURSE Ms. Park is a 40 yo P1 who was admitted to [facility] 8 days after total laparoscopic hysterectomy with bilateral salpingectomy at an outside institution. She was readmitted to [facility] on postopday 4 with fevers, leukocytosis, abdominal pain and CT demonstrated a 4x3 cm pelvic abscess in the uterine bed. She was started on IV zosyn and continued to experience once daily fevers. She was transferred to [facility] for possible abscess drainage. On arrival, patient [...] up as previously scheduled with her local Labour Market Economist. CONSULTS ORDERED DURING THIS ADMISSION None CONDITION AT DISCHARGE improved Discharge instructions were provided to the patient and caregiver(s). documented in this encounter Discharge Instructions AttachmentsThe following attachments cannot be sent through Care Everywhere. Metronidazole (By mouth) (Gambian)Sulfamethoxazole/Trimethoprim (By mouth) (Gambian)documented in this encounter Medications at Time of [...] pelvic abscess. She is now POD9 from [facility] b/l salpingectomy in [place]. Overnight, she was afebrile. WBC down slightly [...] Weight change: I/O 04/28 07 - 04/29 0700 04/29 07 - 04/30 0700 [address]O. 240 Crystalloid Bolus 3 Maintenance IV 359.3 Intermittent Medications 300 Total Intake(mL/kg) 902.3 (7.5) Urine (mL/kg/hr) 925 Total Output 925 Net -22.7 PHYSICAL EXAM RN SURGICAL PCU Exam IP General: sitting up, well appearing, [...] comfortable managing this.She was therefore transferred to [place] for management of this surgical complication. She [...] and patient is voiding spontaneously. Ninfa Castellano R.N. - 04/30/2020 7:25 PM CDT Problem: SAFETY [...] 40 yo P1 who was admitted to [facility] 8 days after total laparoscopic hysterectomy with bilateral salpingectomy at an outside institution. She was readmitted to [facility] on postopday 4 with fevers, leukocytosis, abdominal pain and CT demonstrated a 4x3 cm pelvic abscess in the uterine bed. She was started on IV zosyn and continued to experience once daily fevers. She was transferred to [facility] for possible abscess drainage. On arrival, patient [...] up as previously scheduled with her local Labour Market Economist. documented in this encounter Plan of Treatment [...] CBC without Differential (04/30/2020 12:46 AM CDT) [facility] Method Time Signature Hemoglobin 11.3 (L) [...] Organization Address City/State/ZIP Code Phon e Number [facility] - [address] [place], [place] [address] [facility] [place] [place] [address] Laboratories-[facility] [address] Interpretation of Outside [...] Laterality Blood (Blood, 04/29/2020 3:22 PM 04/30/19 3:34 Venous) CDT PM CDT Gail Reno M.D., M.B.A. LAB BLOOD NON ADD-ON Performing Organization Address City/[facility] Phon e Number [facility] - [address] [place], [place] [address] [facility] [place] [address] [facility] [address] [facility] CBC without Differential (04/29/2020 3:22 PM CDT) [...] M.B.A. LAB BLOOD ADD-ON Performing Organization Address City/[facility] Phon e Number [facility] - [address] [place], [place] [address] [facility] [place] [address] [facility] [address] [facility] Basic Metabolic Panel (04/29/2020 3:22 PM [...] CDT eGFR-Black/Afric >90 >=60 04/29/2020 METH an Qatari mL/min/BSA 3:56 PM CDT Comment: ----ADDITIONAL INFORMATION---- [...] Organization Address City/State/ZIP Code Phon e Number [facility] [address] [place], [place] [address] [facility] [place] [address] [facility] Bacteria / Yulissa Culture, Blood #2 (04/29/2020 3:22 PM CDT) [facility] gist Method Time Signature Bacteria/Taylor No growth [...] MICROBIOLOGY - GENERAL ORDERABLES Performing Organization Address City/[facility] Phon e Number [facility] - [address] [place] [address] Laboratories-[address] Bacteria / Yulissa Culture, Blood #1 (04/29/2020 2:56 PM CDT) [facility] gist Method Time Signature Bacteria/Taylor No growth [...] MICROBIOLOGY - GENERAL ORDERABLES Performing Organization Address City/[facility] Phon e Number [facility] - [address] [place] [address] Laboratories-[address] documented in this encounter Visit Diagnoses Diagnosis Abscess Abdominopelvic (HCC) - Primary Abscess Abdominopelvic (HCC) documented in this encounter Admitting Diagnoses Diagnosis [...] 0.5 mg 0.5 mg, intravenous, Once, On Kim 04/29/20 at 1630, For 1 dose, For intravenous use, dilute with equal volume of 0.9% NS magnesium hydroxide suspension 30 mL (MILK OF Given 8:12 AM CDT 30 mL MAGNESIA) 30 mL, oral, 2 times daily, First dose on Kim 04/29/20 at 2100, Starting evening of surgery. After [...] 4 times daily, First dos e on Sun04/29/20 at 1700, not to exceed 4 grams in 24 hours. enoxaparin injection 40 mg (LOVENOX) 40 mg, subcutaneous, Daily at bedtime, First dose on Sun04/30/20 at 2100 ketorolac injection 15 mg (TORADOL) (CANCELED) 1452 (Given - Provider: Chen Fitzpatrick R.N.)2219 (Given - Provider: Jolly Cruz R.N.) 0355 (Given - Provider: Bella Stoner R.N.) 15 mg, intravenous, Every 6 hours, First dose on Sun04/29/20 at 1500, For 4 doses, start no [...] 0812 (Given - Provider: Ninfa Castellano R.N.) 30 mL, oral, 2 times daily, First dose o n Sun04/29/20 at 2100, Starting evening of surgery. After first bowel movement discontinue Magnesium hydroxide. metroNIDAZOLE tablet 500 mg (FLAGYL) 1826 (Given - Provider: Ninfa Castellano R.N.) 500 mg, oral, 2 times daily, First dose on Sun04/30/20 at 1900, Indications: Obstetric or gynecological infection oxyCODONE IR tablet 5 mg (ROXICODONE) (COMPLETED) 160 (Given - Provider: Jolly Cruz R.N.) 5 mg, oral, Once, On Sun04/29/20 at 1600, For [address] tablet 40 mg (PROTONIX) 06 (Given - Provider: Bella Stoner R.N.) 40 mg, oral, Daily before breakfast, Fir st dose on Sun04/30/20 at 0700, pantoprazole 40 mg oral daily was interchanged for omeprazole 20 or 40 mg oral daily Swallow whole. Do NOT crush, chew, or split tablet. piperacillin-tazobactam in dextrose (iso-osm) IVPB 4.5 g (ZO SYN) (COMPLETED) 185 (New Bag - Provider: Jolly Cruz R.N.) 0028 (New Bag - Provider: Bella Stoner R.N.)0646 (New Bag - Provider: Bella Stoner R.N.)1127 (New Bag - Provider: Ninfa Castellano R.N.) 4.5 g, intravenous, at 200 mL/hr, Admini ster over 0.5 Hours, Every 6 hours, First dose on Sun04/29/20 at 1800, For 4 doses, Drug Monitoring Program: Pharmacist to adjust medication dosing based on indic ation and drug clearance factors., Indic ations: Obstetric or gynecological infection sennosides-docusate sodium 8.6-50 mg per tablet 1 tablet (SE NOKOT-S) 1574 (Given - Provider: Jolly Cruz R.N.) 0812 (Given - Provider: Ninfa Castellano R.N.) 1 tablet, oral, 2 times daily, First dos e on Sun04/29/20 at 2100, Starting evening of surgery. sulfamethoxazole-trimethoprim 800-160 mg per tablet 1 tablet (FELICITY CTRIM DS) 2367 (Given - Provider: Ninfa Castellano RKiranNKiran) 1 tablet, oral, Every 12 hours scheduled , First dose on Sun04/30/20 at 1900, Drug Monitoring Program: Pharmacist to adjust medication dosing based on indication and drug clearance factors., Indications: Obstetric or gynecological infection vortioxetine tablet 20 mg (TRINTELLIX) 0814 (Given - Provider: Ninfa Castellano RKiranNKiran) 20 mg, oral, Daily, First dose on Sun04/30/20 at 0900 Continuous Medication Order 04/28/2020 04/29/2020 04/30/2020 lactated ringers (CANCELED) 1412 (New Ba g - Provider: Jolly Cruz R.N.)2311 (Rate/Dose Verify - Provider: Jolly Cruz R.N.) 0800 (Stopped - Provider: Ninfa Castellano RVahe) 40 mL/hr, intravenous, Continuous, Starting on Sun04/29/20 at 14 00 PRN Medication Order 04/28/2020 04/29/2020 04/30/2020 albuterol nebulizer solution 2.5 mg (ACCUNEB) 2.5 mg, nebulization, Every 4 hours PRN, shortness of breath, Starting Kim 04/29/20 at 1515, Albuterol nebs were interchanged for [...]
--- OUTSIDE RECORDS SUMMARY | 2022-01-10 09:45 | XMS_ITS | Encounter Summary ---
:1980 Author Organization [facility] Address [address] [place] [address] Care Team Providers Name Role Phone Unavailable [...]
--- OUTSIDE RECORDS SUMMARY | 2022-01-10 09:45 | XMS_ITS | Encounter Summary ---
:1980 Author Organization [facility] Address [address] [place] [address] Care Team Providers Name Role Phone Unavailable Primary Care Provider Unavailable Encounter Details Date Type Department Care Team Description 01/04/2006 Hospital Encounter [facility] Robin Huitron M.D. [address] [place], [place] [address] (Wo rk) Social History Tobacco Use Types Packs/Day Years Used Date Smoking Tobacco: Never Assessed Sex Assigned at Date Recorded Not on file documented as of this encounter Plan of Treatment Not on filedocumented as of this encounter Visit Diagnoses Not on filedocumented in this encounter
--- OUTSIDE RECORDS SUMMARY | 2022-01-10 09:46 | XMS_ITS | Encounter Summary ---
:1980 Author Organization [facility] Address [address] [place] [address] Care Team Providers Name Role Phone Unavailable Primary Care Provider Unavailable Encounter Details Date Type Department Care Team Description 10/20/2005 Hospital Encounter [facility] Robin Huitron M.D. [address] [place], [place] [address] (Wo rk) Social History Tobacco Use Types Packs/Day Years Used Date Smoking Tobacco: Never Assessed Sex Assigned at Date Recorded Not on file documented as of this encounter Plan of Treatment Not on filedocumented as of this encounter Visit Diagnoses Not on filedocumented in this encounter
--- OUTSIDE RECORDS SUMMARY | 2022-01-10 09:46 | XMS_ITS | Encounter Summary ---
:1980 Author Organization [facility] Address [address] [place] [address] Care Team Providers Name Role Phone Unavailable [...]
--- OUTSIDE RECORDS SUMMARY | 2022-01-10 09:46 | XMS_ITS | Encounter Summary ---
:1980 Author Organization [facility] Address [address] [place] [address] Care Team Providers Name Role Phone Unavailable Primary Care Provider Unavailable Encounter Details Date Type Department Care Team Description 12/18/2005 Hospital Encounter HX NO MAPPING [place] [address] Social History Tobacco Use Types Packs/Day Years Used Date Smoking Tobacco: Never Assessed Sex Assigned at Date Recorded Not on file documented as of this encounter Plan of Treatment Not on filedocumented as of this encounter Visit Diagnoses Not on filedocumented in this encounter
--- OUTSIDE RECORDS SUMMARY | 2022-01-10 09:46 | XMS_ITS | Encounter Summary ---
:1980 Author Organization [facility] Address [address] [place] [address] Care Team Providers Name Role Phone Unavailable Primary Care Provider Unavailable Encounter Details Date Type Department Care Team Description 11/27/2005 Hospital Encounter [facility] [place] [address] Social History Tobacco Use Types Packs/Day Years Used Date Smoking Tobacco: Never Assessed Sex Assigned at Date Recorded Not on file documented as of this encounter Plan of Treatment Not on filedocumented as of this encounter Visit Diagnoses Not on filedocumented in this encounter
--- OUTSIDE RECORDS SUMMARY | 2022-01-10 09:46 | XMS_ITS | Encounter Summary ---
:1980 Author Organization [facility] Address [address] [place] [address] Care Team Providers Name Role Phone Unavailable Primary Care Provider Unavailable Encounter Details Date Type Department Care Team Description 10/18/2005 Hospital Encounter [facility] Wei Carballo, P.A.-CKiran [address] [place] [address] [employer] [place], [place] [address] (Wo rk) Social History Tobacco Use Types Packs/Day Years Used Date Smoking Tobacco: Never Assessed Sex Assigned at Date Recorded Not on file documented as of this encounter Plan of Treatment Not on filedocumented as of this encounter Visit Diagnoses Not on filedocumented in this encounter
--- OUTSIDE RECORDS SUMMARY | 2022-01-10 09:46 | XMS_ITS | Encounter Summary ---
:1980 Author Organization [facility] Address [address] [place] [address] Care Team Providers Name Role Phone Unavailable Primary Care Provider Unavailable Encounter Details Date Type Department Care Team Description 12/14/2005 Hospital Encounter HX NO MAPPING [place] [address] Social History Tobacco Use Types Packs/Day Years Used Date Smoking Tobacco: Never Assessed Sex Assigned at Date Recorded Not on file documented as of this encounter Plan of Treatment Not on filedocumented as of this encounter Visit Diagnoses Not on filedocumented in this encounter
--- OUTSIDE RECORDS SUMMARY | 2022-01-10 09:46 | XMS_ITS | Encounter Summary ---
:1980 Author Organization [facility] Address [address] [place] [address] Care Team Providers Name Role Phone Unavailable [...]
--- OUTSIDE RECORDS SUMMARY | 2022-01-10 09:46 | XMS_ITS | Encounter Summary ---
:1980 Author Organization [facility] Address [address] [place] [address] Care Team Providers Name Role Phone Unavailable Primary Care Provider Unavailable Encounter Details Date Type Department Care Team Description 12/15/2005 Hospital Encounter [facility]X [facility] Doyle Francis M.D. Social History Tobacco Use Types Packs/Day Years Used Date Smoking Tobacco: Never Assessed Sex Assigned at Date Recorded Not on file documented as of this encounter Plan of Treatment Not on filedocumented as of this encounter Visit Diagnoses Not on filedocumented in this encounter
--- OUTSIDE RECORDS SUMMARY | 2022-01-10 09:46 | XMS_ITS | Encounter Summary ---
:1980 Author Organization [facility] Address [address] [place] [address] Care Team Providers Name Role Phone Unavailable Primary Care Provider Unavailable Encounter Details Date Type Department Care Team Description 10/01/2005 Hospital Encounter [facility] URGENTCAR Provider, Ne michelle Social History Tobacco Use Types Packs/Day Years Used Date Smoking Tobacco: Never Assessed Sex Assigned at Date Recorded Not on file documented as of this encounter Plan of Treatment Not on filedocumented as of this encounter Visit Diagnoses Not on filedocumented in this encounter
--- OUTSIDE RECORDS SUMMARY | 2022-01-10 09:46 | XMS_ITS | Encounter Summary ---
:1980 Author Organization [facility] Address [address] [place] [address] Care Team Providers Name Role Phone Unavailable [...]
--- OUTSIDE RECORDS SUMMARY | 2022-01-10 09:46 | XMS_ITS | Encounter Summary ---
:1980 Author Organization [facility] Address [address] [place] [address] Care Team Providers Name Role Phone Unavailable Primary Care Provider Unavailable Encounter Details Date Type Department Care Team Description 10/18/2005 Hospital Encounter [facility] Robin Huitron M.D. [address] [place], [place] [address] (Wo rk) Social History Tobacco Use Types Packs/Day Years Used Date Smoking Tobacco: Never Assessed Sex Assigned at Date Recorded Not on file documented as of this encounter Plan of Treatment Not on filedocumented as of this encounter Visit Diagnoses Not on filedocumented in this encounter
--- OUTSIDE RECORDS SUMMARY | 2022-01-10 09:46 | XMS_ITS | Encounter Summary ---
:1980 Author Organization [facility] Address [address] [place] [address] Care Team Providers Name Role Phone Unavailable Primary Care Provider Unavailable Encounter Details Date Type Department Care Team Description 11/14/2005 Hospital Encounter [facility] Dyole Francis M.D. Social History Tobacco Use Types Packs/Day Years Used Date Smoking Tobacco: Never Assessed Sex Assigned at Date Recorded Not on file documented as of this encounter Plan of Treatment Not on filedocumented as of this encounter Visit Diagnoses Not on filedocumented in this encounter
--- OUTSIDE RECORDS SUMMARY | 2022-01-10 09:46 | XMS_ITS | Encounter Summary ---
:1980 Author Organization [facility] Address [address] [place] [address] Care Team Providers Name Role Phone Unavailable [...]
--- OUTSIDE RECORDS SUMMARY | 2022-01-10 09:46 | XMS_ITS | Encounter Summary ---
:1980 Author Organization [facility] Address [address] [place] [address] Care Team Providers Name Role Phone Unavailable [...]
--- OUTSIDE RECORDS SUMMARY | 2022-01-10 09:46 | XMS_ITS | Encounter Summary ---
:1980 Author Organization [facility] Address [address] [place] [address] Care Team Providers Name Role Phone Unavailable [...]
--- OUTSIDE RECORDS SUMMARY | 2022-01-10 09:46 | XMS_ITS | Encounter Summary ---
:1980 Author Organization [facility] Address [address] [place] [address] Care Team Providers Name Role Phone Unavailable [...]
--- OUTSIDE RECORDS SUMMARY | 2022-01-10 09:46 | XMS_ITS | Encounter Summary ---
:1980 Author Organization [facility] Address [address] [place] [address] Care Team Providers Name Role Phone Unavailable Primary Care Provider Unavailable Encounter Details Date Type Department Care Team Description 10/26/2005 Hospital Encounter [facility] Angelina Storey, ADAM, C.N.P. Social History Tobacco Use Types Packs/Day Years Used Date Smoking Tobacco: Never Assessed Sex Assigned at Date Recorded Not on file documented as of this encounter Plan of Treatment Not on filedocumented as of this encounter Visit Diagnoses Not on filedocumented in this encounter
--- OUTSIDE RECORDS SUMMARY | 2022-01-10 09:47 | XMS_ITS | Encounter Summary ---
:1980 Author Organization [facility] Address [address] [place] [address] Care Team Providers Name Role Phone Unavailable Primary Care Provider Unavailable Encounter Details Date Type Department Care Team Description 03/23/2004 - [facility] En[facility] Ismael Merlos, 03/24/2004 D.O. Social History Tobacco Use Types Packs/Day Years Used Date Smoking Tobacco: Never Assessed Sex Assigned at Date Recorded Not on file documented as of this encounter Plan of Treatment Not on filedocumented as of this encounter Visit Diagnoses Not on filedocumented in this encounter
--- OUTSIDE RECORDS SUMMARY | 2022-01-10 09:47 | XMS_ITS | Encounter Summary ---
:1980 Author Organization [facility] Address [address] [place] [address] Care Team Providers Name Role Phone Unavailable Primary Care Provider Unavailable Encounter Details Date Type Department Care Team Description 02/27/2001 Hospital [facility] Just[facility] M.[facility] Social History Tobacco Use Types Packs/Day Years Used Date Smoking Tobacco: Never Assessed Sex Assigned at Date Recorded Not on file documented as of this encounter Plan of Treatment Not on filedocumented as of this encounter Visit Diagnoses Not on filedocumented in this encounter
--- OUTSIDE RECORDS SUMMARY | 2022-01-10 09:47 | XMS_ITS | Encounter Summary ---
:1980 Author Organization [facility] Address [address] [place] [address] Care Team Providers Name Role Phone Unavailable [...]
--- OUTSIDE RECORDS SUMMARY | 2022-01-10 09:47 | XMS_ITS | Encounter Summary ---
:1980 Author Organization [facility] Address [address] [place] [address] Care Team Providers Name Role Phone Unavailable Primary Care Provider Unavailable Encounter Details Date Type Department Care Team Description 12/17/2000 Hospital Encounter [facility] Lenard Gallardo M.D. [facility] [address] [place], [place] [phone] (Wo rk) Social History Tobacco Use Types Packs/Day Years Used Date Smoking Tobacco: Never Assessed Sex Assigned at Date Recorded Not on file documented as of this encounter Plan of Treatment Not on filedocumented as of this encounter Visit Diagnoses Not on filedocumented in this encounter
--- OUTSIDE RECORDS SUMMARY | 2022-01-10 09:47 | XMS_ITS | Encounter Summary ---
:1980 Author Organization [facility] Address [address] [place] [address] Care Team Providers Name Role Phone Unavailable Primary Care Provider Unavailable Encounter Details Date Type Department Care Team Description 08/22/2005 Hospital En[facility] Social [facility] Tobacco Use Types Packs/Day Years Used Date Smoking Tobacco: Never Assessed Sex Assigned at Date Recorded Not on file documented as of this encounter Plan of Treatment Not on filedocumented as of this encounter Visit Diagnoses Not on filedocumented in this encounter
--- OUTSIDE RECORDS SUMMARY | 2022-01-10 09:47 | XMS_ITS | Encounter Summary ---
:1980 Author Organization [facility] Address [address] [place] [address] Care Team Providers Name Role Phone Unavailable [...]
--- OUTSIDE RECORDS SUMMARY | 2022-01-10 09:47 | XMS_ITS | Encounter Summary ---
:1980 Author Organization [facility] Address [address] [place] [address] Care Team Providers Name Role Phone Unavailable [...]
--- OUTSIDE RECORDS SUMMARY | 2022-01-10 09:47 | XMS_ITS | Encounter Summary ---
:1980 Author Organization [facility] Address [address] [place] [address] Care Team Providers Name Role Phone Unavailable Primary Care Provider Unavailable Encounter Details Date Type Department Care Team Description 01/30/2001 Hospital Encounter [facility] Demarco Ferguson C, P.A. Social History Tobacco Use Types Packs/Day Years Used Date Smoking Tobacco: Never Assessed Sex Assigned at Date Recorded Not on file documented as of this encounter Plan of Treatment Not on filedocumented as of this encounter Visit Diagnoses Not on filedocumented in this encounter
--- OUTSIDE RECORDS SUMMARY | 2022-01-10 09:47 | XMS_ITS | Encounter Summary ---
:1980 Author Organization [facility] Address [address] [place] [address] Care Team Providers Name Role Phone Unavailable [...]
--- OUTSIDE RECORDS SUMMARY | 2022-01-10 09:47 | XMS_ITS | Encounter Summary ---
:1980 Author Organization [facility] Address [address] [place] [address] Care Team Providers Name Role Phone Unavailable Primary Care Provider Unavailable Encounter Details Date Type Department Care Team Description 02/08/2003 Hospital Encounter [facility] Duarte Dumont M.D. [address] [place] [phone] (Wo rk) Social History Tobacco Use Types Packs/Day Years Used Date Smoking Tobacco: Never Assessed Sex Assigned at Date Recorded Not on file documented as of this encounter Plan of Treatment Not on filedocumented as of this encounter Visit Diagnoses Not on filedocumented in this encounter
--- OUTSIDE RECORDS SUMMARY | 2022-01-10 09:47 | XMS_ITS | Encounter Summary ---
:1980 Author Organization [facility] Address [address] [place] [address] Care Team Providers Name Role Phone Unavailable [...]
--- OUTSIDE RECORDS SUMMARY | 2022-01-10 09:47 | XMS_ITS | Encounter Summary ---
:1980 Author Organization [facility] Address [address] [place] [address] Care Team Providers Name Role Phone Unavailable Primary Care Provider Unavailable Encounter Details Date Type Department Care Team Description 09/01/2002 Hospital Encounter [facility] Celine Wilson, EliuO. [address] [place], [place] [address] (Wo rk) Social History Tobacco Use Types Packs/Day Years Used Date Smoking Tobacco: Never Assessed Sex Assigned at Date Recorded Not on file documented as of this encounter Plan of Treatment Not on filedocumented as of this encounter Visit Diagnoses Not on filedocumented in this encounter
--- OUTSIDE RECORDS SUMMARY | 2022-01-10 09:47 | XMS_ITS | Encounter Summary ---
:1980 Author Organization [facility] Address [address] [place] [address] Care Team Providers Name Role Phone Unavailable Primary Care Provider Unavailable Encounter Details Date Type Department Care Team Description 07/18/2002 Hospital Encounter [facility] Virginie Bal M.D. Social History Tobacco Use Types Packs/Day Years Used Date Smoking Tobacco: Never Assessed Sex Assigned at Date Recorded Not on file documented as of this encounter Plan of Treatment Not on filedocumented as of this encounter Visit Diagnoses Not on filedocumented in this encounter
--- OUTSIDE RECORDS SUMMARY | 2022-01-10 09:47 | XMS_ITS | Encounter Summary ---
:1980 Author Organization [facility] Address [address] [place] [address] Care Team Providers Name Role Phone Unavailable Primary Care Provider Unavailable Encounter Details Date Type Department Care Team Description 08/10/2005 Hospital Encounter [facility] Angelina Storey, ADAM, C.N.P. Social History Tobacco Use Types Packs/Day Years Used Date Smoking Tobacco: Never Assessed Sex Assigned at Date Recorded Not on file documented as of this encounter Plan of Treatment Not on filedocumented as of this encounter Visit Diagnoses Not on filedocumented in this encounter
--- OUTSIDE RECORDS SUMMARY | 2022-01-10 09:47 | XMS_ITS | Encounter Summary ---
:1980 Author Organization [facility] Address [address] [place] [address] Care Team Providers Name Role Phone Unavailable Primary Care Provider Unavailable Encounter Details Date Type Department Care Team Description 08/22/2002 Hospital Encounter [facility] Ritesh Goins, EliuO. [address] [place], [place] [address] (Wo rk) Social History Tobacco Use Types Packs/Day Years Used Date Smoking Tobacco: Never Assessed Sex Assigned at Date Recorded Not on file documented as of this encounter Plan of Treatment Not on filedocumented as of this encounter Visit Diagnoses Not on filedocumented in this encounter
--- OUTSIDE RECORDS SUMMARY | 2022-01-10 09:47 | XMS_ITS | Encounter Summary ---
:1980 Author Organization [facility] Address [address] [place] [address] Care Team Providers Name Role Phone Unavailable Primary Care Provider Unavailable Encounter Details Date Type Department Care Team Description 08/19/2002 Hospital Encounter [facility] Akash Galdamez W, P.A. [address] [place], [place] [address] (Wo rk) Social History Tobacco Use Types Packs/Day Years Used Date Smoking Tobacco: Never Assessed Sex Assigned at Date Recorded Not on file documented as of this encounter Plan of Treatment Not on filedocumented as of this encounter Visit Diagnoses Not on filedocumented in this encounter
--- OUTSIDE RECORDS SUMMARY | 2022-01-10 09:47 | XMS_ITS | Encounter Summary ---
:1980 Author Organization [facility] Address [address] [place] [address] Care Team Providers Name Role Phone Unavailable [...]
--- OUTSIDE RECORDS SUMMARY | 2022-01-10 09:48 | XMS_ITS | Clinical Summary ---
:1980 Author Organization [facility] Address [address] [place] [address] Care Team Providers Name Role Phone Inactive, Administrativel Primary Care Provider [phone] Source Comments If you need additional information that is not available on Care Everywhere, please contact our Medical Records Department during business hours (Sunday - Sunday, 8 am - 5 pm) at . During nonbusiness hours, please contact our Trauma and Emergency Center at .[facility] Medications Medications may not be up [...] to complete this to pic Care Teams Turn Down Man Relationship Specialty Start Date End Date Inactive, Administrativel PCP - General 01/08/15 [address] [facility] [place] [address]
--- OUTSIDE RECORDS SUMMARY | 2022-01-10 09:48 | XMS_ITS | Encounter Summary ---
:1980 Author Organization [facility] Address [address] [place] [address] Care Team Providers Name Role Phone Unavailable Primary Care Provider Unavailable Encounter Details Date Type Department Care Team Description 07/13/2005 [facility] Dana Travises, KEYON [address] [place] [address] Social History Tobacco Use Types Packs/Day Years [...]
--- OUTSIDE RECORDS SUMMARY | 2022-01-10 09:48 | XMS_ITS | Encounter Summary ---
:1980 Author Organization [facility] Address [address] [place] [address] Care Team Providers Name Role Phone Unavailable Primary Care Provider Unavailable Encounter Details Date Type Department Care Team Description 06/01/2005 Interface [facility] Family Practice Provider, 1980 [place] [address] Social History Tobacco Use Types [...]
--- OUTSIDE RECORDS SUMMARY | 2022-01-10 09:48 | XMS_ITS | Clinical Summary ---
:1980 Author Organization [employer] [facility] [place] [address] Care Team Providers Name Role Phone Jovana Lee MD Primary Care Provider [phone] Allergies Active Allergy Reactions Severity Noted [...] 0 Active mg Delayed-Release mouth. capsule levothyroxine (SYNTHROID) 75 mcg once 0 08/26/2020 Active 75 mcg tablet daily. albuterol HFA (PRO-AIR; As directed PRN 0 08/26/2020 Active VENTOLIN; PROVENTIL) 90 mcg/actuation inhaler SUMAtriptan (IMITREX) 50 0 12/22/2020 Active mg tablet Drysol 20 % external 0 12/22/2020 Active solution vortioxetine (Trintellix) Take 1 Tablet 30 Tablet 2 06/30/2021 Active 20 mg tabletIndications: (20 mg) by Recurrent major mouth once depressive disorder, in daily. 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 #10 tabs to last 30 days Active Problems Problem Noted Date Controlled substance agreement signed 11/25/2021 Overview: 11/25/21, Lyn Rea MD, Psychiat ry Recurrent major depressive disorder, in partial remiss [...] Date Resolved Date Controlled substance agreement signed 02/01/2021 Overview: 08/26/20 Lyn Rea MD/psychiatry Controlled substance agreement signed 04/15/2019 Overview: Signed 04/15/2019 Dr Lyn Rea Psy chiatry Controlled substance agreement signed 12/13/2016 Overview: 11/22/16 signed .Dawna Deleon DNP, CONGREGATIONAL CARE PASTOR , FOOD SERVICE ORDER CLERK/psychiatry/hc Moderate episode of recurrent major depressive disorder [...] Team Description 10/27/2021 Telemedicine Lyn Rea, Tel [facility]; Follow Up; Medication Keysha kamara (Per [employer] SALES CONSULTANT Vyvanse 60m g #30 last sold on [...] Comments Blood Pressure 132/80 01/08/2020 4:59 PM SALAD BAR CLERK Pulse 93 01/08/2020 4:59 PM SALAD BAR CLERK Temperature 37.2 ??C (98.9 ??F) 01/08/2020 4:59 PM SALAD BAR CLERK Respiratory Rate 18 03/22/2015 2:02 PM SALAD BAR CLERK Oxygen Saturation 96% 01/08/2020 4:59 PM SALAD BAR CLERK Inhaled Oxygen Concentration - - Weight 133.7 kg (294 lb 12.8 oz) 04/15/2019 2:09 PM CDT Height 164 cm (5' 4.57) 03/21/2017 4:35 PM SALAD BAR CLERK Body Mass Index 49.72 03/21/2017 4:35 PM SALAD BAR CLERK Plan of Treatment Upcoming Encounters Date Type Specialty Care Team Description 02/02/2022 Telemedicine Ruby Rea MD [address] [place] [id number] (Wo rk) Health Maintenance Due Date Last Done Comments Pneumococcal series for age 19-64 02/05/1984 (1 - PCV) HIV for age 15-65 1993 Hepatitis C screening for age 1202/05/1996 18-79 BMI (ht and wt on same day) for 03/21/2018 03/21/2017, /02/2015, age 18+ 09/23/2015, Additional history exists COVID-19 vaccine series (4 - 04/14/2021 02/17/2021, 021, Booster for Moderna series) 02/12/2020 Influenza for age 9-49 10/06/2021 10/23/2019, 11/15/2018, 11/15/2018, Additional history exists Tetanus booster 04/19/2022 04/19/2012 (Completed outside of [facility]), 03/07/2012, 10/02/2006, Additional history exists Pap test for age 21-65 06/26/2022 06/27/2019, 06/27/2019, 04/07/2014, Additional history exists Depression screening for age 12+ 10/27/2022 10/27/2021, , 02/09/2021, Additional history exists Tdap Completed 03/07/2012 Results Not on filefrom Last 3 Months Insurance Payer Benefit Plan / Subscriber ID Effective Dates Phone Addre ss Type Group WC WORKERS JAMILA BENSON [id number] 2019-Presen [address] [place] [address] [employer] [id number] 2018-Present [address] [address] [place] [address] [employer] [place] [employer] Comp Self 1980 [address] (Home) [place] [id number] Care Teams Supervisory Forester Relationship Specialty Start Date End Date Jovana Lee MD PCP - General Family Practice 09/23/151999 [place] [id number]
[2022-01-10 14:25] LABS: SARS PCR* POSITIVE SARS-CoV-2 (Negative)
== END 2022-01-10 09:12 | disposition home or self-care (01) ==
LOC: LONREF 09:12
PROVIDERS: PCP Family Medicine; Visit Provider Family Medicine
DX: U07.1 COVID-19 (principal); R05.9 Cough, unspecified
CPT/HCPCS: 87635

== ENCOUNTER 2022-04-04 07:32 | Outpatient (CLI) | payer BC, SELFPAY ==
[2022-04-04 09:41] LABS: Albumin* 3.8 g/dL (3.3-5.0); Chloride* 107 mmol/L (96-114); Sodium* 139 mmol/L (135-149)
[2022-04-04 09:43] LABS: Cholesterol* 231 mg/dL (90-199)
[2022-04-04 09:44] LABS: Alanine Aminotransferase* 21 U/L (4-35); Alkaline Phosphatase* 82 U/L (40-150); Aspartate Amino Transferase* 21 U/L (12-35); Blood Urea Nitrogen* 8 mg/dL (5-24); Carbon Dioxide* 27 mmol/L (20-32); Creatinine* 0.7 mg/dL (0.5-1.5); Estimated Glomerular Filt Rate 109 ml/min; Glucose* 93 mg/dL (60-115); Total Protein* 6.5 g/dL (6.0-8.3); Triglycerides* 144 mg/dL (40-149)
[2022-04-04 09:45] LABS: Calcium* 8.9 mg/dL (8.4-10.6); HDL Cholesterol* 62 mg/dL (>=50); LDL Cholesterol Calculated 140 mg/dL (<100)
[2022-04-04 10:32] LABS: Vitamin B12* 929 pg/mL (243-894)
[2022-04-04 10:56] LABS: Free T4 Free Thyroxine* 1.08 ng/dL (0.70-1.85)
== END 2022-04-04 07:33 | disposition home or self-care (01) ==
PROVIDERS: PCP Family Medicine; Visit Provider Family Medicine
DX: E03.9 Hypothyroidism, unspecified (principal); R53.83 Other fatigue; E78.5 Hyperlipidemia, unspecified
CPT/HCPCS: 80053; 80061; 82607; 84439; 84443

== ENCOUNTER 2022-08-27 11:57 | Emergency (ER) | payer BC, SELFPAY ==
[2022-08-27 12:07] VITALS: BP 147/81; PULSE 86; RESP 18; TEMP 36.4; O2SAT 97
--- NOTE | 2022-08-27 12:29 | ED_ITS ---
HPI - Head Injury General Time Seen by Provider: 12:30 Date Seen: 08/27/22 Chief complaint: Head Injury/Pain Stated complaint: Fell, hit back of head Time Seen by Provider: 08/27/22 12:28 Source: patient and RN notes reviewed Mode of arrival: ambulatory Limitations: no limitations History of Present Illness HPI Narrative: Patient is a 42-year-old female seen in the ER for concern of a head injury. She dropped her pop in the kitchen and it was going all over the floor, sprain. She went to pick it up and slipped in the pop, falling backwards landing on the back of her head. She states it hurts on the right posterior head. No loss of consciousness, no visual changes. She has a sore area that is raised on her head. No neck or back pain. No difficulty breathing, no chest pain. She has been ambulatory, states her arms and legs are working just fine. She has had a history of a concussion before. No visual changes or significant headache at this time. This happened just prior to arrival. She takes occasional 81 mg aspirin but not all the time. She is on no other blood thinners per report. MD Complaint: head injury, head pain and fall Related Data Home Medications Medication Instructions Recorded Confirmed lisdexamfetamine 60 mg capsule mg 08/23/21 04/19/22 (Vyvanse) vortioxetine 20 mg tablet mg 08/23/21 04/19/22 (Trintellix) aspirin 81 mg tablet,delayed 81 mg PO QDAY 09/30/21 04/19/22 release Previous Rx's Medication Instructions Recorded albuterol sulfate 90 mcg/actuation 2 inh inhalation Q4-6H #6.7 grams 04/07/22 aerosol inhaler levothyroxine 75 mcg tablet 75 mcg PO QDAY #90 tabs 04/07/22 omeprazole 20 mg capsule,delayed 20 mg PO QDAY #90 caps 04/07/22 release sumatriptan succinate 50 mg tablet 50 mg PO ONCE PRN migraine 04/07/22 headache #7 tabs Allergies Allergy/AdvReac Type Severity Reaction Status Date / Time ranitidine [From Zantac] Allergy Mild throath Verified 04/19/22 13:55 swelling Review of Systems Status of ROS: Reports: 6 or more systems reviewed and unremarkable except as noted in History and below [facility] History History of cocaine dependence ?F14.21 - Cocaine dependence, in remission (ICD-10) COVID-19 (~01/2022) ?U07.1 - COVID-19 (ICD-10) Low back pain (~12/2021) ?M54.50 - Low back pain, unspecified (ICD-10) Morbid obesity with BMI of 40.0-44.9, adult ?E66.01 - Morbid (severe) obesity due to excess calories (ICD-10) ?Z68.41 - Body mass index [BMI] 40.0-44.9, adult (ICD-10) Migraine without aura and responsive to treatment ?G43.009 - Migraine without aura, not intractable, without status migrainosus (ICD-10) History of pulmonary embolism (2017) ?Z86.711 - Personal history of pulmonary embolism (ICD-10) Chronic GERD ?K21.9 - Gastro-esophageal reflux disease without esophagitis (ICD-10) Spastic diplegia ?G80.1 - Spastic diplegic cerebral palsy (ICD-10) Mild intermittent asthma ?J45.20 - Mild intermittent asthma, uncomplicated (ICD-10) ALFONSO (obstructive sleep apnea) ?G47.33 - Obstructive sleep apnea (adult) (pediatric) (ICD-10) Hypothyroidism ?E03.9 - Hypothyroidism, unspecified (ICD-10) Surgical History (Updated 04/07/22 @ 06:45 by Jovana Lee MD) History of major orthopedic surgery (1985) ?Z98.890 - Other specified postprocedural states (ICD-10) S/P laparoscopic hysterectomy (2020) ?Z90.710 - Acquired absence of both cervix and uterus (ICD-10) H/O dilation and curettage (2019) ?Z98.890 - Other specified postprocedural states (ICD-10) History of colposcopy (2019) ?Z98.890 - Other specified postprocedural states (ICD-10) H/O wisdom tooth extraction ?K08.409 - Partial loss of teeth, unspecified cause, unspecified class (ICD- 10) History of laparoscopic cholecystectomy ?Z90.49 - Acquired absence of other specified parts of digestive tract (ICD- 10) History of (2005) ?Z98.891 - History of uterine scar from previous surgery (ICD-10) Family History Mother Anxiety disorder Sister Anxiety disorder Maternal Grandfather Coronary artery disease Paternal Grandfather Coronary artery disease Father Thyroid cancer Family/Other Stroke Social History (Updated 04/07/22 @ 06:47 by Jovana Lee MD) 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, 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, 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 Quit smoking 2020, history 25 pack years Does not exercise Rarely consumes alcohol Smoking Status: Never smoker How often do you have a drink containing alcohol: never How often do you have six or more drinks on one occasion: Never AUDIT-C Alcohol total score: 0 Non-prescribed substance use: denies use Little interest or pleasure in doing things: several days Feeling down, depressed, or hopeless: several days Exam Const: Vital Signs, click to edit/add: Vital Signs - 24 hr 08/27/22 12:07 08/27/22 13:50 Temperature 97.5 F L 97.8 F Pulse Rate [Right Pulse Oximeter] 86 74 Respiratory Rate 18 16 Blood Pressure [Ri ght Upper Arm] 147/81 H 147/70 H Pulse Oximetry 97 96 Oxygen Delivery Me thod Room Air Room Air Documenting provider has reviewed patient's vital signs: yes Common normals: no apparent distress, oriented x3, no limitations, healthy appearing, alert and well nourished General appearance: cooperative, comfortable, well kempt and well developed Nutritional appearance: obese HENMT: Common normals: hearing grossly normal bilaterally, external ears normal, EAC's normal, TM's normal bilaterally, external nose normal, nasal mucous membranes and turbinates normal, moist oral mucous membranes, oropharynx normal, dentition normal and gingiva normal Head and scalp: hematoma (Right parietal/occipital area) and scalp tenderness (Over the right posterior parietal area, top of the occipital area on this ) Face and sinus: normal facial exam Nose: external nose normal and nasal mucous membranes and turbinates normal External ear: external ears normal External auditory canal: EAC's normal Tympanic membrane: TM's normal bilaterally Eye: Common normals: PERRL, EOMs intact bilaterally, conjunctivae normal and no scleral icterus Conjunctiva: conjunctiva(e) normal Pupil: PERRL Neck & C-Spine: Common normals: full ROM (No midline or paraspinous tenderness of the C-spine), no lymphadenopathy and supple Resp: Common normals: normal respiratory effort, no retractions, no use of a ccessory muscles and clear to auscultation bilaterally Effort & inspection: able to speak in complete sentences Auscultation: clear to auscultation bilaterally Cardio: Common normals: regular rate, regular rhythm, S1 normal heart sound, S2 normal heart sound, no gallops, no clicks and no murmurs Rate: regular rate Rhythm: regular rhythm Heart sounds: S1 normal and S2 normal Neuro: Alise Coma Scale: document GCS findings Alise coma scale eye opening: Spontaneous (4) [place] coma scale verbal response: Orientated (5) [place] coma scale motor response: Obey commands (6) Alise coma scale total score: 15 Common normals: oriented x3, moves all extremities, no focal motor deficits and gait normal Sensorium/orientation: alert Psych: Appearance: well kempt Course Course Hospital Course: Patient definitely has a hematoma of the scalp. Will proceed with head CT imaging which she would like to do. Reviewed that this would rule out fracture, intracranial pathology. As far as concussion, that is if she has ongoing symptoms from her head injury. She will have to follow her symptoms and if ongoing symptoms such as headache, dizziness, nausea, phone or photophobia, except truck, certainly may have post concussive syndrome and would need ongoing management and follow up in clinic. Consultations Consultation #1: Reviewed with patient her normal head CT minus the soft tissue changes of the parietal scalp hematoma. We have discussed activities as tolerated, limit anything that is causing her to be symptomatic or feel worse. She is going to discharge to home for further outpatient follow-up and management if need be. Time: 14:05 Vital Signs Vital signs: Initial Vital Signs Temperature 97.5 F L 08/27/22 12:07 Temperature Source Temporal Artery Scan 08/27/22 12:07 Pulse Rate 86 08/27/22 12:07 Respiratory Rate 18 08/27/22 12:07 Blood Pressure 147/81 H 08/27/22 12:07 Blood Pressure Mean 103 08/27/22 12:07 Blood Pressure Position Sitting 08/27/22 12:07 Pulse Oximetry 97 08/27/22 12:07 Oxygen Delivery Method Room Air 08/27/22 12:07 Vital Signs Temperature 97.5 F L 08/27/22 12:07 Pulse Rate 86 08/27/22 12:07 Respiratory Rate 18 08/27/22 12:07 Blood Pressure 147/81 H 08/27/22 12:07 Pulse Oximetry 97 08/27/22 12:07 Oxygen Delivery Method Room Air 08/27/22 12:07 Temperature 97.8 F 08/27/22 13:50 Pulse Rate 74 08/27/22 13:50 Respiratory Rate 16 08/27/22 13:50 Blood Pressure 147/70 H 08/27/22 13:50 Pulse Oximetry 96 08/27/22 13:50 Oxygen Delivery Method Room Air 08/27/22 13:50 MDM - Head Injury Imaging Data CT scan - head: Attestation: I have reviewed the pertinent imaging results. Radiologist's impression: Patient: ANATOLIY YOST Facility:?[facility] Patient ID:?[id number] Site Patient ID:?[id number]. Site :?1980 Study:?CT Head w/o-08/27/2022 1:01:35 PM Ordering Physician:?Mohinder Allen Final Report: INDICATION: Head injury. Fell and hit back of head. TECHNIQUE: Scanning of the head was performed without IV contrast material. Coronal and sagittal reconstructions were obtained. COMPARISON: None. FINDINGS: No intracranial hemorrhage is demonstrated. No mass effect or ventricular enlargement is evident. A right parietal scalp hematoma is noted. No calvarial or obvious facial fracture is identified. The visualized paranasal and mastoid sinuses are clear. IMPRESSION: 1. Negative for acute intracranial injury. 2. Right parietal scalp hematoma. Please note that all CT scans at this facility use dose modulation, iterative reconstruction, and/or weight-based dosing when appropriate to reduce radiation dose to as low as reasonably achievable. Dictated by Mason Mckenna MD @ 08/27/2022 1:25:53 PM (Electronic Signature) Discharge Plan Discharge Clinical Impression: Hematoma of parietal scalp, Closed head injury Patient Disposition: Home, Self-Care Condition: Stable Instructions: Head Injury (ED), Scalp Contusion in Adults (ED) Additional Instructions: Recommend seeing primary provider these next week for recheck. Can use Tylenol/ibuprofen as needed, follow bottle directions for dosing. Avoid any activity/reading/screen time that makes you feel worse/worsens any potential concussion symptoms. Ice the bruised area on the scalp next few days to help decrease pain and swelling. Activity Level: Activity as Tolerated Prescriptions: No Action aspirin 81 mg tablet,delayed release (DR/EC) 81 mg PO QDAY albuterol sulfate 90 mcg/actuation HFA aerosol inhaler 2 inh INHALATION Q4-6H Qty: 6.7 4RF levothyroxine 75 mcg tablet 75 mcg PO QDAY Qty: 90 4RF omeprazole 20 mg capsule,delayed release(DR/EC) 20 mg PO QDAY Qty: 90 4RF sumatriptan succinate 50 mg tablet 50 mg PO ONCE PRN (Reason: migraine headache) Qty: 7 7RF Rx Instructions: 1 tablet as needed at the beginning of migraine Vyvanse 60 mg capsule Trintellix 20 mg tablet Follow Up/Referrals: Jovana Lee MD [Primary Care Provider] - Stand Alone Forms: [employer] Info Instructions
--- NOTE | 2022-08-27 12:36 | CRLHL7_ITS ---
For Patients: As a result of the Century Cures Act, medical imaging exams and procedure reports are released immediately into your electronic medical record. You may view this report before your referring provider. If you have questions, please contact your health care provider. INDICATION: Head injury. Fell and hit back of head. TECHNIQUE: Scanning of the head was performed without IV contrast material. Coronal and sagittal reconstructions were obtained. COMPARISON: None. FINDINGS: No intracranial hemorrhage is demonstrated. No mass effect or ventricular enlargement is evident. A right parietal scalp hematoma is noted. No calvarial or obvious facial fracture is identified. The visualized paranasal and mastoid sinuses are clear. IMPRESSION: 1. Negative for acute intracranial injury. 2. Right parietal scalp hematoma. Please note that all CT scans at this facility use dose modulation, iterative reconstruction, and/or weight-based dosing when appropriate to reduce radiation dose to as low as reasonably achievable. Dictated by Mason Mckenna MD @ 08/27/2022 1:25:53 PM (Electronically Signed)
[2022-08-27 13:50] VITALS: BP 147/70; PULSE 74; RESP 16; TEMP 36.6; O2SAT 96
== END 2022-08-27 14:14 | disposition home or self-care (01) ==
PROVIDERS: Emergency Provider Family Medicine; PCP Family Medicine
DX: S00.03XA Contusion of scalp, initial encounter (principal); W01.0XXA Fall on same level from slipping, tripping and stumbling without subsequent striking against object, initial encounter
CPT/HCPCS: 70450; 99283; 99284

== ENCOUNTER 2022-11-07 14:45 | Outpatient (RCR) | payer BC, SELFPAY ==
--- NOTE | 2022-11-06 14:32 | PT.OPEX ---
PT [place] Outpatient Eval PT [facility] Outpatient Eval Start: 11/03/22 16:08 Freq: Status: Active Protocol: Document 11/03/22 16:09 KUSUM (Rec: 11/03/22 16:28 KUSUM [id number]) E-signed By Niecy Roman PT Physical Therapy Outpatient Evaluation Insurance Information Recert Due Date 01/01/23 Insurance Name Medicaid,Blue Cross/Blue Shield Medical Diagnosis CONCUSSION S06.0XAA Treating Diagnosis BPPV H811 NECK PAIN M54.2 Referring MD ABDIRASHID DOWLING APRN, CNP Subjective Subjective PATIENT DESCRIBES SLIPPING A POP SHE DROPPED THAT EXPLODED AND LANDING ON THE RIGHT SIDE OF HER HEAD SUSTAINING A HEMATOMA AND CONCUSSION. SHE REPORTS MANY CONCUSSION IN HER PAST BUT NOTHING THAT MADE HER FEEL LIKE SHE WAS IN A TILT WORLD WHEN SHE ROLLS OVER IN BED. SHE REPORTS FOGGINESS AND CONSISTENT EPISODES OF DIZZINESS LASTING 5-15 SEC. 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 PATIENT REPORTS RESIDUAL HEADACHES, NECK STIFFNESS, AND POSITIONAL VERTIGO SEEN PREDOMINATELY WHEN ROLLING OVER IN BED AND, SECONDARILY, WHEN MOVING SIT<->STAND. SHE HAS FUNCTIONAL ROM ABOUT HER CERVICAL SPINE AND SHOULDER WITH 4+/5 STRENGTH ABOUT THER SHOULDER. SHE DENIES ANY RADICULAR SYMPTOMS AND WAS CLEARED FROM ANY ALAR LIGAMENT OR HIGH CERVICAL PATHOLOGY. TODAY, SHE TESTED POSITIVE FOR LEFT POSTERIOR CANALITHIASIS FOR LEFT HALLPIKE-NATO WITH AN HARRIET MANEUVER FOR CORRECTION. (+) CATCH UP SACCADES FOR SMOOTH PURSUITS TO THE LEFT , (-) SPONTANEOUS NYSTAGMUS, (-) SLOW VOR, (+) FAST VOR TO LEFT, (+) HEAD THRUST TO R/L, CRANIAL NERVE ASSESSMENT UNREMARKABLE, (-) ORTHOSTATIC HYPOTENSION; SHE IS INSTRUCTED TODAY TO ALLOW SEVERAL HOURS TO SETTLE AND AVOID QUICK MVMTS TO THE FLOOR OR FROM SUPINE TO SIT. LASTLY , SHE C/O STIFFNESS ABOUT THE CERVICOTHORACIC REGION AND PROVIDED HEP TO ADDRESS GENTLE STRETCHING. PATIENT WOULD BENEFIT FROM CONTINUED SKILLED PHYSICAL THERAPY TO ADDRESS RESIDUAL SYMPTOMS FROM HER CONCUSSION AND RETURN PLOF. Primary Functional Limitations BALANCE DIZZINESS GAZE STABILIZATION Plan of Care Rehabilitation Potential Good Physical Therapy Goals IN 6-8 VISITS: 1. PATIENT WILL REPORT DECREASED INSTANCES OF HEADACHE DURING ADL'S AND LIGHT HOUSEKEEPING. 2. PATIENT WILL REPORT NO POSITIONAL VERTIGO WHEN MOVING RIGHT TO LEFT IN BED, SUPINE TO SIT, AND SIT TO STAND FOR > 1 WEEK. 3. PATIENT WILL IMPROVE HER BUE STRENGTH TO ALLOW HER A FULL RETURN TO DAILY ACTIVITIES, WORK DUTIES, AND RECREATIONAL ACTIVITIES. 4. PATIENT WILL BE INDEPENDENT WITH HER HEP. Coordination/Communication With Referral Source Treatment Plan/Direct Interventions Canalith Repositioning,Joint Mobilization,Manual Therapy, Neuromuscular Re-ed, Therapeutic Activities, Therapeutic Exercises Patient Will Be Discharged From Therapy Completion of LTG(s), Independent w/HEP Evaluation Billing Untimed Code Treatment Minutes 30 PT Eval No Charge No Complexity High Certification Information Initial Certification Date 11/03/22 Ending Certification Date 01/01/23 Provider Signature Shows Agreement With POC & Medical Necessity Physician Signature & Date Requested Please Sign/Date Here Physician Comment/Change : Physician NPI Number #
== END 2023-01-11 15:13 | disposition home or self-care (01) ==
PROVIDERS: PCP Family Medicine; Visit Provider Nurse Practitioner Family
DX: S06.0XAA Concussion with loss of consciousness status unknown, initial encounter (principal); H81.11 Benign paroxysmal vertigo, right ear; M54.2 Cervicalgia; Z51.89 Encounter for other specified aftercare
CPT/HCPCS: 95992; 97110; 97140; 97163

== ENCOUNTER 2022-11-08 10:32 | Emergency (ER) | payer BC, SELFPAY ==
[2022-11-08] VITALS (20 sets, daily range): BP systolic 103–130; BP diastolic 52–84; PULSE 71–83; RESP 20; TEMP 35.8; O2SAT 94–100; BMI 42.9
--- NOTE | 2022-11-08 11:30 | ED_ITS ---
HPI - Chest Pain General Time Seen by Provider: 11:30 Date Seen: 11/08/22 Chief Complaint: Chest Pain Stated Complaint: heart issues Time Seen by Provider: 11/08/22 11:17 Source: patient, EMS and RN notes reviewed Mode of arrival: EMS Limitations: no limitations History of Present Illness HPI narrative: This 42 year old female is brought in by EMS for chest pain. She was driving to work, had to be there at 9:00 a.m.. Shortly before this, started having sharp shooting chest pains all over her anterior upper chest in an underlying general sense of pressure. There is no palpitations. She maybe felt a little short of breath but that is decreased now. Now she is just feeling exhausted and tired. This is similar to her symptoms when she had a pulmonary embolus about 4-5 years ago. She states she was on a blood thinner Coumadin and had to have her INR checked weekly for while. She thought it was her heart last time, remembered hyperventilating. She pulled her car over called 911. The ENTs did check her out, told her her heart looked good but her blood pressure was 143/100. She opted to sign, went to get her son in then came from [place] at where she was and he drove her to our emergency room here. She has no swelling in her legs but states she will always have some in her ankles, unchanged. She has had no cough or cold symptoms. She is being treated for a concussion and ongoing vertigo, is seen physical therapy. She had a head injury on August 27 for which I actually saw her here in the ER. She is taking an 81 mg aspirin daily but is no longer on any blood thinners. She does admit that she is worried that this feels like the pulmonary embolus. She has had no calf pain, no leg pain. MD complaint: chest pain and chest heaviness Prior episodes: Yes Related Data On Oral Contraceptives: No Home Medications Medication Instructions Recorded Confirmed aspirin 81 mg tablet,delayed 81 mg PO QDAY 09/30/21 10/05/22 release lisdexamfetamine 60 mg capsule 60 mg PO 08/28/22 10/05/22 (Vyvanse) vortioxetine 20 mg tablet 20 mg PO 08/28/22 10/05/22 (Trintellix) Previous Rx's Medication Instructions Recorded albuterol sulfate 90 mcg/actuation 2 inh inhalation Q4-6H #6.7 grams 04/07/22 aerosol inhaler levothyroxine 75 mcg tablet 75 mcg PO QDAY #90 tabs 04/07/22 omeprazole 20 mg capsule,delayed 20 mg PO QDAY #90 caps 04/07/22 release sumatriptan succinate 50 mg tablet 50 mg PO ONCE PRN migraine 04/07/22 headache #7 tabs Allergies Allergy/AdvReac Type Severity Reaction Status Date / Time ranitidine [From Zantac] Allergy Mild throath Verified 11/08/22 12:36 swelling Review of Systems Status of ROS Reports: 6 or more systems reviewed and unremarkable except as noted in History and below [facility] Medical History (Updated 11/08/22 @ 16:01 by Tiffany Vines MD) History of cocaine dependence ?F14.21 - Cocaine dependence, in remission (ICD-10) History of pulmonary embolism (2017) ?Z86.711 - Personal history of pulmonary embolism (ICD-10) Surgical History (Updated 04/07/22 @ 06:45 by Jovana Lee MD) History of major orthopedic surgery (1985) ?Z98.890 - Other specified postprocedural states (ICD-10) S/P laparoscopic hysterectomy (2020) ?Z90.710 - Acquired absence of both cervix and uterus (ICD-10) H/O dilation and curettage (2019) ?Z98.890 - Other specified postprocedural states (ICD-10) History of colposcopy (2019) ?Z98.890 - Other specified postprocedural states (ICD-10) H/O wisdom tooth extraction ?K08.409 - Partial loss of teeth, unspecified cause, unspecified class (ICD- 10) History of laparoscopic cholecystectomy ?Z90.49 - Acquired absence of other specified parts of digestive tract (ICD- 10) History of (2005) ?Z98.891 - History of uterine scar from previous surgery (ICD-10) Family History Mother Anxiety disorder Sister Anxiety disorder Maternal Grandfather Coronary artery disease Paternal Grandfather Coronary artery disease Father Thyroid cancer Family/Other Stroke Social History (Updated 04/07/22 @ 06:47 by Jovana Lee MD) 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, 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, 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 Quit smoking 2020, history 25 pack years Does not exercise Rarely consumes alcohol Smoking Status: Never smoker How often do you have a drink containing alcohol: never How often do you have six or more drinks on one occasion: Never AUDIT-C Alcohol total score: 0 Non-prescribed substance use: marijuana (any form) Little interest or pleasure in doing things: several days Feeling down, depressed, or hopeless: several days Exam Const Vital Signs, click to edit/add: Vital Signs - 24 hr 11/08/22 10:39 11/08/22 11:02 11/08/22 11:03 Temperature 96.4 F L Pulse Rate 76 83 Pulse Rate [Pulse Oximeter] 76 Respiratory Rate 20 Blood Pressure 117/67 Blood Pressure [Left Upper Arm] 130/78 Pulse Oximetry 95 97 94 Oxygen Delivery Method Room Air 11/08/22 11:04 11/08/22 11:15 11/08/22 11:30 Temperature Pulse Rate 76 76 76 Pulse Rate [Pulse Oximeter] Respiratory Rate Blood Pressure Blood Pressure [Left Upper Arm] Pulse Oximetry 96 95 98 Oxygen Delivery Method 11/08/22 11:33 11/08/22 11:45 11/08/22 12:00 Temperature Pulse Rate 76 78 71 Pulse Rate [Pulse Oximeter] Respiratory Rate Blood Pressure 120/71 Blood Pressure [Left Upper Arm] Pulse Oximetry 97 96 96 Oxygen Delivery Method 11/08/22 12:02 11/08/22 12:33 11/08/22 12:35 Temperature Pulse Rate 71 76 Pulse Rate [Pulse Oximeter] Respiratory Rate Blood Pressure 103/52 L Blood Pressure [Left Upper Arm] Pulse Oximetry 97 98 Oxygen Delivery Method 11/08/22 12:45 11/08/22 13:00 11/08/22 13:02 Temperature Pulse Rate 79 77 76 Pulse Rate [Pulse Oximeter] Respiratory Rate Blood Pressure 107/60 Blood Pressure [Left Upper Arm] Pulse Oximetry 98 100 99 Oxygen Delivery Method 11/08/22 13:15 11/08/22 13:30 11/08/22 13:32 Temperature Pulse Rate 76 73 73 Pulse Rate [Pulse Oximeter] Respiratory Rate Blood Pressure 129/84 Blood Pressure [Left Upper Arm] Pulse Oximetry 97 99 98 Oxygen Delivery Method 11/08/22 13:33 11/08/22 13:45 Temperature Pulse Rate 75 83 Pulse Rate [Pulse Oximeter] Respiratory Rate Blood Pressure Blood Pressure [Left Upper Arm] Pulse Oximetry 98 97 Oxygen Delivery Method This 42-year-old female is alert, interactive, no apparent distress. She is conversive, able speak in complete sentences, voice is normal. Sclera clear, conjugate gaze, pupils equal round reactive. Symmetrical facial function. Neck without any palpable masses, do not note any jugular venous distension. She is able to sit up, lungs are clear, good air entry, no wheezing or crackles, no tachypnea. CV regular rate and rhythm, no murmur, normal S1-S2, no S3-S4. No reproduce rule anterior chest wall pain. Abdomen is soft, nontender, nondistended, no organomegaly noted. She has no calf pain, no pretibial edema noted. Documenting provider has reviewed patient's vital signs: yes Course Course ED Course: She will be monitored on cardiac monitoring and pulse oximetry while here. She is feeling better. We will proceed with chest CT PE protocol., consider doing Dopplers if D-dimer is elevated, this would be of her lower extremities. Will do appropriate labs including cardiac labs. This certainly could be recurrent thromboembolic disease. EKG on arrival is reassuring but will get troponins and other laboratory evaluation. She overall is improved from when this started this morning. Reevaluation(s) Time of Reevaluation #1: 13:53 Reevaluation #1: Have reviewed with Anatoliy that her chest CT PE protocol is normal. Labs are normal, D-dimer is not elevated. We will be doing a follow-up troponin and EKG. If all of these are normal likely discharge to home. Time of Reevaluation #2: 15:59 Reevaluation #2: Reviewed with patient that the lab troponin is negative. The point of care troponin did give us a false positive and reviewed with her that this is unfortunately not completely infrequent that we see this. She is stable, will discharge to home. She does endorse underlying anxiety. This certainly could have been a panic attack. However, in the interim if she is having worsening pain, has shortness of breath/difficulty breathing nor palpitations/heart rate issues, do recommend re-evaluation in the ER. Vital Signs Vital signs: Initial Vital Signs Temperature 96.4 F L 11/08/22 10:39 Temperature Source Temporal Artery Scan 11/08/22 10:39 Pulse Rate 76 11/08/22 10:39 Respiratory Rate 20 11/08/22 10:39 Blood Pressure 130/78 11/08/22 10:39 Blood Pressure Mean 95 11/08/22 10:39 Blood Pressure Position Supine 11/08/22 10:39 Pulse Oximetry 95 11/08/22 10:39 Oxygen Delivery Method Room Air 11/08/22 10:39 Vital Signs Temperature 96.4 F L 11/08/22 10:39 Pulse Rate 76 11/08/22 10:39 Respiratory Rate 20 11/08/22 10:39 Blood Pressure 130/78 11/08/22 10:39 Pulse Oximetry 95 11/08/22 10:39 Oxygen Delivery Method Room Air 11/08/22 10:39 Temperature 96.4 F L 11/08/22 10:39 Pulse Rate 83 11/08/22 13:45 Respiratory Rate 20 11/08/22 10:39 Blood Pressure 129/84 11/08/22 13:32 Pulse Oximetry 97 11/08/22 13:45 Oxygen Delivery Method Room Air 11/08/22 10:39 MDM - Chest Pain Lab Data Attestation: I reviewed the patient's lab results. Labs: Lab Results 11/08/22 11/08/22 11/08/22 Range/Units 11:48 13:44 15:15 WBC 5.18 (4.50-11.00) K/uL RBC 4.82 (4.00-5.20) m/uL Hgb 14.3 (12.0-16.0) gm/dL Hct 41.6 (33.0-51.0) % MCV 86 (80-100) fL MCH 30 (26-34) pg MCHC 34 (32-36) gm/dL RDW Coeff of Ekaterina 11.7 (11.5-15.5) % Plt Count 167 (140-440) K/uL Neut % (Auto) 62.7 (42.0-72.0) % Lymph % (Auto) 27.0 (20-44) % [place] % (Auto) 8.1 (0.0-11.0) % Eos % (Auto) 1.4 (0.0-7.0) % Baso % (Auto) 0.6 (0.0-3.0) % Neut # (Auto) 3.25 (1.7-7.0) K/uL Lymph # (Auto) 1.40 (0.90-2.90) K/uL [place] # (Auto) 0.40 (0.00-0.90) K/UL Eos # (Auto) 0.07 (0.00-0.50) K/uL Baso # (Auto) 0.03 (0.00-0.30) K/uL Abs Immat Gran (auto) 0.01 (0.00-0.30) K/uL Imm/Tot Granulo (auto) 0.2 % D-Dimer Quant (PE/DVT) 0.50 (0.00-0.50) ug/ml VBG pH 7.367 (7.32-7.43) VBG pCO2 51 H (40-50) mmHG VBG pO2 28.6 (25-47) mmHG VBG HCO3 29 H (21-28) mmol/L Sodium 138 (135-149) mmol/L Potassium 3.9 (3.6-5.1) mmol/L Chloride 105 (96-114) mmol/L Carbon Dioxide 27 (20-32) mmol/L Anion Gap 6 L (7-15) mEq/L BUN 11 (5-24) mg/dL Creatinine 0.7 (0.5-1.5) mg/dL Estimated Creat Clear 88.56 Estimated GFR 109 ml/min Glucose 81 (60-115) mg/dL Calcium 8.6 (8.4-10.6) mg/dL Total Bilirubin 1.0 (0.1-1.5) mg/dL AST 25 (12-35) U/L ALT 22 (4-35) U/L Alkaline Phosphatase 67 (40-150) U/L Troponin I < 0.01 L < 0.01 L (0.01-0.04) ng/mL C-Reactive Protein < 0.5 L (0.5-1.0) mg/dL NT-Pro-B Natriuret Pep 28 pg/mL Total Protein 7.0 (6.0-8.3) g/dL Albumin 3.9 (3.3-5.0) g/dL POC Troponin I 0.12 H (0.01-0.04) ng/ml Imaging Data CT scan - chest: Attestation: I have reviewed the pertinent imaging results. Radiologist's impression: Patient: ANATOLIY YOST Facility:?[facility] Patient ID:?[id number] Site Patient ID:?[id number]. Site :?1980 Study:?CT Chest Angio W/ 95 CC ISOVUE 370-11/08/2022 12:36:12 PM Ordering Physician:Esther Allen Final Report: INDICATION: Chest pain, shortness of breath. TECHNIQUE: CT chest PE was acquired with 95 cc Isovue 370 IV contrast. COMPARISON: None. FINDINGS: Heart and vasculature: Contrast opacification of the pulmonary arterial tree is adequate. No sign of pulmonary embolism. Heart size is normal. Thoracic aorta and pulmonary artery are normal in caliber. Lungs and pleura: No suspicious nodules or infiltrates. No pleural effusions, pleural thickening, or pneumothorax. Lymph nodes/mediastinum: No mediastinal, hilar, or axillary adenopathy. Chest wall: No masses. Upper abdomen: No acute or significant findings. Bones: Unremarkable for age. IMPRESSION: No pulmonary embolism. No focal consolidations. Please note that all CT scans at this facility use dose modulation, iterative reconstruction, and/or weight-based dosing when appropriate to reduce radiation dose to as low as reasonably achievable. Dictated by Doyle Browning MD @ 11/08/2022 1:16:13 PM (Electronic Signature) ECG Data Attestation: I personally reviewed and interpreted this ECG as follows: (Normal sinus rhythm, 70 beats per minute. No ischemia, no arrhythmia. QT corrected 444 milliseconds.) ECG interpretation date: 11/08/22 ECG interpretation time: 12:05 Interpretation: Repeat EKG at 1:57 p.m. shows normal sinus rhythm, 73 beats per minute, normal EKG. QT corrected 434 milliseconds. Discharge Plan Discharge Clinical Impression: Chest pain Patient Disposition: Home, Self-Care Condition: Stable Instructions: Chest Pain (ED) Additional Instructions: Need to follow up in clinic within the next week for recheck. If you develop increasing pain, have sense of palpitations or irregular heartbeat, difficulty breathing/shortness of breath, do recommend re-evaluation in the ER. Otherwise you may go about activities as tolerated, no changes to your normal medications. Activity Level: Activity as Tolerated Prescriptions: No Action aspirin 81 mg tablet,delayed release (DR/EC) 81 mg PO QDAY albuterol sulfate 90 mcg/actuation HFA aerosol inhaler 2 inh INHALATION Q4-6H Qty: 6.7 4RF levothyroxine 75 mcg tablet 75 mcg PO QDAY Qty: 90 4RF omeprazole 20 mg capsule,delayed release(DR/EC) 20 mg PO QDAY Qty: 90 4RF sumatriptan succinate 50 mg tablet 50 mg PO ONCE PRN (Reason: migraine headache) Qty: 7 7RF Rx Instructions: 1 tablet as needed at the beginning of migraine Vyvanse 60 mg capsule 60 mg PO Trintellix 20 mg tablet 20 mg PO Follow Up/Referrals: Jovana Lee MD [Primary Care Provider] - Stand Alone Forms: [employer] Info Instructions
--- NOTE | 2022-11-08 11:37 | CRLHL7_ITS ---
For Patients: As a result of the Century Cures Act, medical imaging exams and procedure reports are released immediately into your electronic medical record. You may view this report before your referring provider. If you have questions, please contact your health care provider. INDICATION: Chest pain, shortness of breath. TECHNIQUE: CT chest PE was acquired with 95 cc Isovue 370 IV contrast. COMPARISON: None. FINDINGS: Heart and vasculature: Contrast opacification of the pulmonary arterial tree is adequate. No sign of pulmonary embolism. Heart size is normal. Thoracic aorta and pulmonary artery are normal in caliber. Lungs and pleura: No suspicious nodules or infiltrates. No pleural effusions, pleural thickening, or pneumothorax. Lymph nodes/mediastinum: No mediastinal, hilar, or axillary adenopathy. Chest wall: No masses. Upper abdomen: No acute or significant findings. Bones: Unremarkable for age. IMPRESSION: No pulmonary embolism. No focal consolidations. Please note that all CT scans at this facility use dose modulation, iterative reconstruction, and/or weight-based dosing when appropriate to reduce radiation dose to as low as reasonably achievable. Dictated by Doyle Browning MD @ 11/08/2022 1:16:13 PM (Electronically Signed)
[2022-11-08 11:58] LABS: HCO3 VBG 29 mmol/L (21-28); PCO2 VBG 51 mmHG (40-50); PO2 VBG 28.6 mmHG (25-47); pH VBG 7.367 (7.32-7.43)
[2022-11-08 12:03] LABS: Basophils Absolute Auto 0.03 K/uL (0.00-0.30); Basophils Percent Auto 0.6 % (0.0-3.0); Eosinophils Absolute Auto 0.07 K/uL (0.00-0.50); Eosinophils Percent Auto 1.4 % (0.0-7.0); Hematocrit 41.6 % (33.0-51.0); Hemoglobin* 14.3 gm/dL (12.0-16.0); Immature Granulocytes Abs Auto 0.01 K/uL (0.00-0.30); Immature Granulocytes Pct Auto 0.2 %; Mean Corpuscular HGB Conc 34 gm/dL (32-36); Mean Corpuscular Hemoglobin 30 pg (26-34); Mean Corpuscular Volume 86 fL (80-100); Monocytes Percent Auto 8.1 % (0.0-11.0); Neutrophils Absolute Auto 3.25 K/uL (1.7-7.0); Neutrophils Percent Auto 62.7 % (42.0-72.0); Platelet Count* 167 K/uL (140-440); RDW Coefficient of Variation % 11.7 % (11.5-15.5); Red Blood Count 4.82 m/uL (4.00-5.20); White Blood Count* 5.18 K/uL (4.50-11.00)
[2022-11-08 12:06] LABS: Slide Review Reflex No
[2022-11-08 12:29] LABS: Albumin* 3.9 g/dL (3.3-5.0); Chloride* 105 mmol/L (96-114); Sodium* 138 mmol/L (135-149)
[2022-11-08 12:30] LABS: Potassium* 3.9 mmol/L (3.6-5.1)
[2022-11-08 12:32] LABS: Creatinine* 0.7 mg/dL (0.5-1.5); Est. Creatinine Clearance* 88.56; Estimated Glomerular Filt Rate 109 ml/min
[2022-11-08 12:33] LABS: Alanine Aminotransferase* 22 U/L (4-35); Alkaline Phosphatase* 67 U/L (40-150); Anion Gap 6 mEq/L (7-15); Aspartate Amino Transferase* 25 U/L (12-35); Blood Urea Nitrogen* 11 mg/dL (5-24); Calcium* 8.6 mg/dL (8.4-10.6); Carbon Dioxide* 27 mmol/L (20-32); Glucose* 81 mg/dL (60-115)
[2022-11-08 12:36] LABS: C Reactive Protein* < 0.5 mg/dL (0.5-1.0)
[2022-11-08 12:54] LABS: NT Pro B Type NatriureticPept* 28 pg/mL; Troponin I* < 0.01 ng/mL (0.01-0.04)
[2022-11-08 14:19] LABS: Troponin, Point-of-Care* 0.12 ng/ml (0.01-0.04)
[2022-11-08 15:50] LABS: Troponin I* < 0.01 ng/mL (0.01-0.04)
== END 2022-11-08 16:11 | disposition home or self-care (01) ==
PROVIDERS: Emergency Provider Family Medicine; PCP Family Medicine
DX: R07.9 Chest pain, unspecified (principal)
CPT/HCPCS: 36415; 71275; 80053; 82803; 83880; 84484; 85025; 85379; 86140; 93005; 94761; 99284; 99285; Q9967

== ENCOUNTER 2023-05-21 09:13 | Emergency (ER) | payer BC, SELFPAY ==
[2023-05-21 09:23] VITALS: BP 136/94; PULSE 89; RESP 18; TEMP 36.6; O2SAT 95; BMI 46.3
--- NOTE | 2023-05-21 10:16 | XR_ITS ---
Patient: ANATOLIY YOST Facility:?[facility] Patient ID:?[id number] Site Patient ID:?[id number]. Site :?1980 Study:?XRay-Spine Lumbar 2 VIEWS-05/21/2023 10:49:04 AM Ordering Physician:KRYSTA Final Report: INDICATION: CHRONIC BACK PROBLEMS, FELL LAST WEEK, L5-S1 REGION. (Sic) COMPARISON: CT 09/11/2020 TECHNIQUE: views. FINDINGS: Grade 1 anterolisthesis of L5 on S1 associated with bilateral L5 spondylolysis. Well maintained vertebral body heights. Disc degeneration present to varying degrees throughout the imaged thoracolumbar spine, [id number] in severity. Large anterior vertebral body osteophytes at L1-L2. Normal paraspinal soft tissues. Right upper quadrant cholecystectomy clips are noted incidentally. IMPRESSION: Grade 1 anterolisthesis of L5 on S1, new in the interval since the prior CT of 09/11/2020, associated with chronic L5 spondylolysis (demonstrated to better advantage on the prior CT). Chronic multilevel lumbar spondylosis, nonspecific. Dictated by German Quevedo MD @ 05/21/2023 11:06:36 AM Signed by:?German Quevedo MD @05/21/2023 11:06:36 AM (Electronic Signature)
--- OUTSIDE RECORDS SUMMARY | 2023-05-21 10:25 | XMS_ITS | Clinical Summary ---
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 FLUoxetine (FLUoxetine 40 mg oral capsule) Status: Ordered Start Date: 03/30/23 1 Capsules Oral every day. levothyroxine (levothyroxine 75 mcg (0.075 mg) oral tablet) Status: Ordered Start Date: 08/05/20 1 tabs Oral every day. lisdexamfetamine (Vyvanse 40 mg oral capsule) Status: Ordered Start Date: 08/05/20 1 Capsules Oral every morning. omeprazole (omeprazole 20 mg oral delayed release capsule) Status: Ordered Start Date: 08/05/20 1 Capsules Oral 2 times a day. Problem List Condition Confirmation Course Effective Dates Status Health Status Informant At high risk for falls 1 Confirmed Active Familial spastic paraparesis Confirmed Active Spondylolisthesis at L5-S1 level Confirmed Active 1Added via Discern Expert [id number] Rule. 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 (This Visit) Immunizations Given and Recorded Vaccine Date Status Refusal Reason tetanus/diphth/pertuss (Tdap) adult/adol 04/07/22 Recorded tetanus/diphth/pertuss (Tdap) adult/adol 03/07/12 Recorded SARS-CoV-2 (COVID-19) mRNA-1273 vaccine 02/17/21 R ecorded SARS-CoV-2 (COVID-19) mRNA-1273 vaccine 03/10/20 R ecorded SARS-CoV-2 (COVID-19) mRNA-1273 vaccine 02/12/20 R ecorded influenza virus vaccine, inactivated 11/15/20 Rudolph rded influenza virus vaccine, inactivated 10/23/19 Rudolph rded influenza virus vaccine, inactivated 11/15/18 Rudolph rded influenza virus vaccine, inactivated 12/02/16 Rudolph rded influenza virus vaccine, inactivated 11/15/12 Rudolph rded influenza virus vaccine, inactivated 10/17/11 Rudolph rded influenza virus vaccine, inactivated 11/17/10 Rudolph rded influenza virus vaccine, inactivated 12/15/08 Rudolph rded tetanus-diphth toxoids (Td) adult/adol 10/02/06 Re corded tetanus-diphth toxoids (Td) adult/adol 02/04/97 Re corded Vital Signs Most recent to oldest [Reference Range]: 1 Temperature Temporal Artery [36.5-38 Deg C] 35.9 Deg C *LOW* (03/30/23 10:52 AM) Pain Present Yes actual or suspec travon pain (03/30/23 10:52 AM) Able to self report Yes (03/30/23 10:52 AM) able to use numeric rating scale Yes (03/30/23 10:52 AM) Social History Social History Type Response Tobacco Former smoker, quit more than 30 days ago, Exposure to Secondhand Smoke: No. Sex Treatment Plan Future Appointments Appointment Date:07/06/2023 10:20:00 AM Scheduled Provider:Curt Gottlieb MD Location:[facility] - Clinic Appointment Type:PM and R - Botulinum Toxin Injection
--- OUTSIDE RECORDS SUMMARY | 2023-05-21 10:25 | XMS_ITS | Clinical Summary ---
Author Name Unknown Organization [employer] [facility] Address [place], [place] [address] Care Team Providers Care [employer] Founder Name Role Phone Jovana Lee MD Primary Care Provider + Allergies Active Allergy Reactions Criticality Noted Date Comments Ranitidine Edema Medications Medication Sig Dispensed Refills Start Date End Date Status ALBUTEROL 90 MCG/ACTUATION AEROSOL INHALER inhale 1 puff by inhalation route every 4-6 hours as needed 0 Active cholecalciferol (VITAMIN D3) 1,000 unit tablet Take 2 tablets by mouth once daily. For 8 weeks; then decrease to 2 tablets tablets daily 0 12/07/2011 Active omeprazole (PRILOSEC) 20 mg Delayed-Release capsule Take 20 mg by mouth. Active levothyroxine (SYNTHROID) 75 mcg tablet 75 mcg once daily. 08/26/2020 Active albuterol HFA (PRO-AIR; VENTOLIN; PROVENTIL) 90 mcg/actuation inhaler As directed PRN 08/26/2020 Active SUMAtriptan (IMITREX) 50 mg tablet 12/22/2020 Active Drysol 20 % external solution 12/22/2020 Active FLUoxetine (PROZAC) 40 mg capsuleIndications:R ecurrent major depressive disorder, in partial remission (HC),Anxiety Take 1 Capsule (40 mg) by mouth once daily. 90 Capsule 03/13/2023 Active LORazepam (ATIVAN) 0.5 mg tabIndications:Anxie ty Take 1 Tablet (0.5 mg) by mouth at bedtime if needed for Anxiety or Sleep. #10 tabs to last 30 days 10 Tablet 2 03/13/2023 Active lisdexamfetamine (Vyvanse) 40 mg capsuleIndications:A DHD (attention deficit hyperactivity disorder), inattentive type Take 1 Capsule (40 mg) by mouth every morning. 30 Capsule 03/13/2023 Active Active Problems Problem Noted Date Diagnosed Date Controlled substance agreement signed 11/25/2021 Overview: 11/25/21, Lyn Rea MD, Psychiatry Recurrent major depressive disorder, in partial remission 08/07/2017 ADHD (attention deficit hype ractivity disorder), inattentive type 03/21/2017 Borderline personality disorder 11/22/2016 Anxiety 11/22/2016 ALFONSO (obstructive sleep apnea) 12/07/2015 Alcohol abuse, unspecified 07/03/2006 Overview: last use 2005 History of substance use disorder 07/03/2006 Overview: cociane, mushrooms, crack last use 2005 Backache, unspecified 07/03/2006 Paraplegia 07/03/2006 Resolved Problems Problem Noted Date Diagnosed Date Resolved Date Controlled substance agreement signed 02/01/2021 11/25/2021 Overview: 08/26/20 Lyn Rea MD/psychiatry Controlled substance agreement signed 04/15/2019 02/01/2021 Overview: Signed 04/15/2019 Dr Lyn Rea Psychiatry Controlled substance agreement signed 12/13/2016 02/01/2021 Overview: 11/22/16 signed .Dawna Deleon DNP, COW WASHER, INVESTIGATOR FRAUD/psychiatry/hc Moderate episode of recurren t major depressive disorder 11/22/2016 08/07/2017 Controlled substance agreement signed 06/21/2016 06/29/2017 Overview: Signed: 05/27/15 Dr. Eben Cortes MD / psychiatry MAJOR DEPRESSION RECURRENT 09/12/2006 1 Overview: Previous medications Citalopram (Celexa), Fluoxetine (Prozac), Paroxetin (Paxil), Bupropion (Wellbutrin), Buspirone (Buspar), Venlafaxine (Effexor), Lamotrigine (Limictal), Aripiprazole (Abilify), Quetiapine (Seroquel) Depressive disorder, not elsewhere classified 07/04/19 07 07/20/2011 Encounters Date Type Department Care Team Description 03/13/2023 7:45 AM FLORIST SUPPLIES SALESPERSON Telemedicine [facility] [address] [place] [address] Lyn Rea MD Telehealth; Medication Management 03/12/2023 Travel from Last 3 Months Immunizations Name Administration Dates Next Due Influenza A (H1N1), Inactivated 12/15/2008 Influenza A (H1N1), Inactiva travon (Age >=3 Years) 12/15/2008 Influenza Virus, Unspecified 11/15/2020, 10/23/2019,11/15/2018,2016,11/15/2012,10/17/2011,11/17/2010,1 02/15/2008 Influenza, IIV3 (Age 6-35 mos) 11/15/2012,2011,11/17/2010 Influenza, IIV3 (Age >=3 years) 12/02/2016 Influenza, IIV4 11/15/2020, 0,11/15/2018,2008 Influenza,CCIIV4 PRESERV FREE 12/02/2016 MMR 06/11/1989 TD, UNSPECIFIED 10/02/2006,1997,1997 Td (Age >=7 Years) 03/16/2004,1997, 997 Td Adult (Tetanus And Diphth eria Toxoids, Not Adsorbed) 10/02/2006,1997 Td, Preservative Free (age > = 7 Years) 10/02/2006 Tdap 04/07/2022,03/07/2012 Family History Medical History Relation Name Comments Diabetes Maternal Grandfather Psychiatric illness Mother Diabetes Paternal Grandfather Relation Name Status Comments Father Alive Maternal Grandfather Mother Alive Paternal Grandfather Sister 1 Alive Sister 2 Alive Social History Tobacco Use Types Packs/Day Years Used Date Smoking Tobacco: Former Cigarettes Q uit: 05/14/2016 Smokeless Tobacco: Never Tobacco Cessation:Counseling Given: Not Answered Comments:quit 10/2020 Alcohol Use Standard Drinks/Week Comments Yes 0 (1 standard drink = 0.6 oz pur e alcohol) rarely PHQ-2 Answer Date Recorded PHQ-2 TOTAL SCORE 4 03/12/2023 Social Connections Answer Date Recorded Frequency of Communication with Friends and Fami ly Not on file 11/07/2021 Alcohol Use Answer Date Recorded How often do you have a drink containing alcohol ? 1 04/27/2022 Average Number of Drinks Not on file 023 Frequency of Binge Drinking Not on file 04/06 Sex and Gender Information Value Date Recorded Sex Assigned at Female 09/17/2019 12:36 PM CDT Gender Identity Female 09/17/2019 12:36 PM CDT Sexual Orientation Straight 09/17/2019 12 :36 PM CDT Obstetrics History Last Filed Vital Signs Vital Sign Reading Time Taken Comments Blood Pressure 141/67 09/20/2022 7:48 AM CDT Pulse 78 09/20/2022 7:48 AM CDT Temperature 37.2 ??C (98.9 ??F) 01/08/2020 4:59 PM CS T Respiratory Rate 18 03/22/2015 2:02 PM FL[employer]IST [employer]PPLIES SALESPERSON Oxygen Saturation 96% 01/08/2020 4:59 PM FLORIST [employer]PPLIES SALESPERSON Inhaled Oxygen Concentration - - Weight 133.7 kg (294 lb 12.8 oz) 04/15/2019 2:09 PM CDT Height 164 cm (5' 4.57) 03/21/2017 4:35 PM [employer]IST [employer]PPLIES SALESPERSON Body Mass Index 49.72 03/21/2017 4:35 PM [employer]IST [employer]PPLIES SALESPERSON Plan of Treatment Upcoming Encounters Date Type Department Care Team (Late st Contact Info) Description 05/29/2023 7:45 AM CDT Telemedicine [facility] [address] [place] [address] Lyn Rea MD [address] [place] [address] Health Maintenance Due Date Last Done Comments HIV for age 15-65 1993 Hepatitis C screening for age 18-79 02/05/1996 BMI (ht and wt on same day) for age 18+ 03/21/2018 03/21/2017, 12/07/2015, 09/23/2015, Additional history exists Pap test for age 21-65 06/26/2022 , 06/27/2019, 04/07/2014, Additional history exists COVID-19 vaccine series (2022- season) 2022 02/17/2021, 03/10/2020, 02/12/2020 Colonoscopy through age 75 2023 Lipids for age 45-75 2023 Mammogram for age 45-75 2023 Influenza for age 9-49 10/07/2023 , 11/15/2020, 10/23/2019, Additional history exists Depression screening for age 12+ 03/13/2024 03/13/2023, 01/16/2023, 09/20/2022, Additional history exists Tetanus booster 04/07/2032 04/07/2022, 04/05 (Completed outside of [facility]), 03/07/2012, Additional history exists Tdap Completed 04/07/2022, 03/07/2012 Pneumococcal series for age 6-64 Aged Out No longer eligible based on patient's age to complete this topic Procedures Procedure Name Priority Date/Time Associated Diagnosis Comments HOME FURNISHINGS SALES REPRESENTATIVE THIN PREP PAP SCREEN IMAGED Routine 06/27/2019 12:00 PM CDT from Last 3 Months or Most Recently Relevant to Health Maintenance Results * HOME FURNISHINGS SALES REPRESENTATIVE THIN PREP PAP SCREEN IMAGED (06/27/2019 12:00 PM CDT) Case Report Gynecologic Cytology Report ? Case: [id number] ? Authorizing Provider: ??Jennifer Ramey PA-C ?Collected: ? 06/27/2019 1200 ? Ordering Location: ? [facility] ?Received: ?06/29/2019 0952 ? First Screen: ?Fabian Saleh ? Specimen: ?HOME FURNISHINGS SALES REPRESENTATIVE ThinPrep Vial Screening, Cervical/Vaginal ? 07/02/2019 8:08 AM CDT [facility] INTERPRETATION/ RESULT NEGATIVE FOR INTRAEPITHELIAL LESION OR MALIGNANCY (NIL) (none) 07/02/2019 8:08 AM T [facility] IMEN ADEQUACY Satisfactory for evaluation No endocervical component seen 07/02/2019 8:08 AM CDT [facility] HPV REQUEST HPV and PAP 07/02/2019 8:08 AM T [facility] Date of LMP 05/15/2001 07/02/2019 8:08 AM CDT [facility] Menstrual Status 07/02/2019 8:08 AM CDT [facility] Comment:Nexplanon Additional Information 07/02/2019 8:08 AM CDT [facility] Comment: Interpreted at [facility] - [address] [place] [address], [place] [address] Automated Review Successful 07/02/2019 8:08 AM CDT [facility] Comment:Specimen processed s uccessfully by automated caustic pump operator device, ThinPrep Imaging System, [employer] ANCILLARY TESTING HOME FURNISHINGS SALES REPRESENTATIVE HPV Ordered, Please see separate report 07/02/2019 8:08 AM CDT [facility] Note The pap test is a screening technique, not a diagnostic procedure. It is used primarily to screen for squamous cancers and precursor lesions. Published studies have shown that it is subject to both false negative and false positive results. The pap test should not be used as the sole means to diagnose or exclude pre-malignant and malignant lesions. 07/02/2019 8:08 AM CDT [email or web address] Other (Cervical/Vagina l) 06/27/2019 12:00 PM CDT 06/29/2019 9:52 AM CDT May Tan[facility] PATHOLOGY/CYTOLOGY [facility] [address] [place] [address], from Last 3 Months or Most Recently Relevant to Health Maintenance Care Teams [employer] Founder Relationship Specialty Start Date End Date [facility]ovana Lee [facility] [address] [facility] [place] [address] PCP - General Family Practice 09/23/15
--- OUTSIDE RECORDS SUMMARY | 2023-05-21 10:26 | XMS_ITS | Clinical Summary ---
Author Name Unknown Organization [facility] Address [address] [place] [address] Care Team Providers Care Anthropologist Physical Name Role Phone Inactive, Administrativel Primary Care Provider Source Comments If you need additional information that is not available on Care Everywhere, please contact our Medical Records Department during business hours (Sunday - Sunday, 8 am - 5 pm) at . During nonbusiness hours, please contact our Trauma and Emergency Center at .[facility] Medications * Medications may not be up to date as of this document. Always verify current medications with the patient. Medication Sig Dispensed Refills Start Date End Date Status Effexor Take by mouth daily PRN 12/17/2004 Activ e Albuterol 90 mcg/Actuation Aerosol Inhaler Take 2 puffs by mouth every 4 hours as needed for shortness of breath 1 PRN 02/23/2005 Active Immunizations Name Administration Dates Next Due MMR Live 06/11/1989 PPD Test 05/11/2004 Td (adult), 2 tetanus toxoid 03/16/2004,07/04/18 97 Social History Tobacco Use Types Packs/Day Years Used Date Smoking Tobacco: Never Assessed Sex and Gender Information Value Date Recorded Sex Assigned at Not on file Gender Identity Not on file Sexual Orientation Not on file Plan of Treatment Health Maintenance Due Date Last Done Comments DEPRESSION/ANXIETY PHQ4 1990 LIPID SCREEN 02/05/1996 WELLNESS VISIT 02/05/1996 Hepatitis B Vaccine (1 of 3 - 19+ 3-dose series) 1997 PERTUSSIS 1997 DTaP/Tdap/Td Vaccine (2 - Tdap) 03/17/2004 03/16/2004, 07/04/1996 CERVICAL CANCER SCREENING 07/13/2008 07/13/2005 MAMMOGRAM 2018 COVID-19 Vaccine ( - 2022-2 4 season) 2022 INFLUENZA (#1) 2022 COLONOSCOPY 2023 DIABETES SCREENING 2023 HPV Vaccine Aged Out No longer eligi ble based on patient's age to complete this topic PNEUMOCOCCAL AGES 0-64 YEARS Aged Out No longer eligible based on patient's age to complete this topic POLIO (IPV) Vaccine Aged Out No longe r eligible based on patient's age to complete this topic Procedures Procedure Name Priority Date/Time Associated Diagnosis Comments PATH CREATIVE SERVICES DESIGNER CYTOLOGY (PAP SMEAR) Routine 07/13/2005 from Last 3 Months or Most Recently Relevant to Health Maintenance Results * PATH CREATIVE SERVICES DESIGNER CYTOLOGY (PAP SMEAR) (07/13/2005) 07/13/2005 07/13/2005 Narrative 07/18/2005 Patient Name: Sue Park Sex: F : 1980 LMP: NEW OB [facility] Rec #: [id number] Room: [facility] Physician: Carla Travis Cytology #: [id number] Specimen Source/Type: CERVICAL-ENDOCERVICAL/LBC Date Collected: 07/13/2005 Date Received: 07/14/2005 Date Reported: 07/18/2005 Specimen Adequacy: SATISFACTORY FOR EVALUATION. General Categorization: EPITHELIAL CELL ABNORMALITY: SEE DESCRIPTIVE DIAGNOSIS. Interpretation/Result: ATYPICAL SQUAMOUS CELLS OF UNDETERMINED SIGNIFICANCE, (ASC-US). Comments: HPV TESTING SENT TO [facility]. Reo Asset Manager: JANETH Muller(ASCP) Pathologist: Miguel Ángel Contreras M.D.(Electronically Signed) NOTE: The pap smear is only a screening procedure to aid in the detection of abnormalities of the cervix. As such, it is not 100% accurate and a certain percentage of false negative and false positive results occur. It is not a diagnostic test and should never be used as the only means to detect cervical cancer and its precursors. Carla Travis CNM PATHOLOGY/CYTOLOGY O RDERABLES from Last 3 Months or Most Recently Relevant to Health Maintenance Care Teams Anthropologist Physical Relationship Specialty Start Date End Date Inactive, Administrativel [address] [place] [address] PCP - General 01/08/15
[2023-05-21] MEDS: KETOROLAC 30 MG/ML inj IM (10:53)
--- NOTE | 2023-05-21 10:58 | ED_ITS ---
HPI - Back Pain/Injury General Date Seen: 05/21/23 Chief Complaint: Back Injury/Pain Stated Complaint: back pain radiating down right side Time Seen by Provider: 05/21/23 09:56 Source: patient Mode of arrival: ambulatory Limitations: no limitations History of Present Illness HPI Narrative: Patient is a 43-year-old female with chronic low back pain. She states she has a herniated disc at L5-S1. Had a nerve burning procedure done a few weeks ago which she has not had any improvement in her symptoms yet but then a week ago noted she fell because she lost her balance and hurt her back worse. Pain is not been improving so she came to the emergency department for evaluated. States the pain is mostly on her right-sided radiates down her leg. This is similar to previous pain that for she states mildly worse. Her home pain medicine of Tylenol ibuprofen have not been helping. She does not have a pain contract. Denies any other injuries. Denies weakness, saddle anesthesia, loss of bowel or bladder control, urinary retention, fevers. No other concerns noted Related Data Home Medications Medication Instructions Recorded Confirmed aspirin 81 mg tablet,delayed 81 mg PO QDAY 09/30/21 05/21/23 release lisdexamfetamine 60 mg capsule 60 mg PO 08/28/22 12/19/22 (Vyvanse) fluoxetine 40 mg capsule 40 mg PO DAILY 05/21/23 05/21/23 lisdexamfetamine 40 mg capsule 40 mg PO QAM 05/21/23 05/21/23 lorazepam 0.5 mg tablet 0.5 mg PO QPM PRN anxiety 05/21/23 05/21/23 Previous Rx's Medication Instructions Recorded albuterol sulfate 90 mcg/actuation 2 inh inhalation Q4-6H #6.7 grams 04/07/22 aerosol inhaler levothyroxine 75 mcg tablet 75 mcg PO QDAY #90 tabs 04/07/22 omeprazole 20 mg capsule,delayed 20 mg PO QDAY #90 caps 04/07/22 release sumatriptan succinate 50 mg tablet 50 mg PO ONCE PRN migraine 04/07/22 headache #7 tabs Allergies Allergy/AdvReac Type Severity Reaction Status Date / Time ranitidine [From Zantac] Allergy Mild throath Verified 05/21/23 09:29 swelling Review of Systems Narrative: Pertinent systems reviewed and were negative unless stated in HPI PFSH PFS Medical History History of cocaine dependence ?F14.21 - Cocaine dependence, in remission (ICD-10) History of pulmonary embolism (2017) ?Z86.711 - Personal history of pulmonary embolism (ICD-10) Surgical History History of major orthopedic surgery (1985) ?Z98.890 - Other specified postprocedural states (ICD-10) S/P laparoscopic hysterectomy (2020) ?Z90.710 - Acquired absence of both cervix and uterus (ICD-10) H/O dilation and curettage (2019) ?Z98.890 - Other specified postprocedural states (ICD-10) History of colposcopy (2019) ?Z98.890 - Other specified postprocedural states (ICD-10) H/O wisdom tooth extraction ?K08.409 - Partial loss of teeth, unspecified cause, unspecified class (ICD- 10) History of laparoscopic cholecystectomy ?Z90.49 - Acquired absence of other specified parts of digestive tract (ICD- 10) History of (2005) ?Z98.891 - History of uterine scar from previous surgery (ICD-10) Family History Mother Anxiety disorder Sister Anxiety disorder Maternal Grandfather Coronary artery disease Paternal Grandfather Coronary artery disease Father Thyroid cancer Family/Other Stroke Social History 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, 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, 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 Quit smoking 2020, history 25 pack years Does not exercise Rarely consumes alcohol Smoking Status: Never smoker How often do you have a drink containing alcohol: never How often do you have six or more drinks on one occasion: Never AUDIT-C Alcohol total score: 0 Non-prescribed substance use: marijuana (any form) Little interest or pleasure in doing things: several days Feeling down, depressed, or hopeless: several days Exam Narrative: Exam Narrative: Const: Well-nourished, Well-developed, in mild distress Eyes: PERRL, no conjunctival injection, and symmetrical lids HENT: Atraumatic external nose and ears. Moist mucous membranes. Neck: Symmetric, trachea midline, No thyromegaly. CVS: RRR, No murmurs or gallops. Peripheral pulses 2+ and equal in all extremities RESP: Unlabored respiratory effort. Clear to auscultation bilaterally. GI: Nontender/Nondistended, No rebound or guarding. MSK:Extremities w/o deformity, Normal Active ROM, tenderness to palpation midline spine lower lumbar region Skin: Warm, Dry. No rashes or lesions. Neuro: Normal Muscle tone, No focal neurological deficits. Psych: Awake, Alert, & Oriented x3. Appropriate mood and affect. Const: Vital Signs, click to edit/add: Vital Signs - 24 hr 05/21/23 09:23 Temperature 98 F Pulse Rate [Right Pulse Oximeter] 89 Respiratory Rate 18 Blood Pressure [Ri ght Upper Arm] 136/94 H Pulse Oximetry 95 Oxygen Delivery Me thod Room Air Course Vital Signs Vital signs: Initial Vital Signs Temperature 98 F 05/21/23 09:23 Temperature Source Temporal Artery Scan 05/21/23 09:23 Pulse Rate 89 05/21/23 09:23 Pulse Rhythm Regular 05/21/23 09:23 Respiratory Rate 18 05/21/23 09:23 Blood Pressure 136/94 H 05/21/23 09:23 Blood Pressure Mean 108 H 05/21/23 09:23 Blood Pressure Position Sitting 05/21/23 09:23 Pulse Oximetry 95 05/21/23 09:23 Oxygen Delivery Method Room Air 05/21/23 09:23 Vital Signs Temperature 98 F 05/21/23 09:23 Pulse Rate 89 05/21/23 09:23 Respiratory Rate 18 05/21/23 09:23 Blood Pressure 136/94 H 05/21/23 09:23 Pulse Oximetry 95 05/21/23 09:23 Oxygen Delivery Method Room Air 05/21/23 09:23 Temperature 98 F 05/21/23 09:23 Pulse Rate 89 05/21/23 09:23 Respiratory Rate 18 05/21/23 09:23 Blood Pressure 136/94 H 05/21/23 09:23 Pulse Oximetry 95 05/21/23 09:23 Oxygen Delivery Method Room Air 05/21/23 09:23 Medications Administered Medications: Discontinued Medications Generic Name Dose Route Start Last Admin Trade Name Freq PRN Reason Stop Dose Admin Ketorolac Tromethamine 30 mg 05/21/23 10:28 05/21/23 10:53 Ketorolac 30 Mg/Ml Inj IM 05/21/23 10:29 30 mg ONCE ONE Administration Oxycodone HCl 5 mg 05/21/23 10:17 05/21/23 10:53 Oxycodone 5 Mg Tablet PO 05/21/23 10:18 Not Given ONCE ONE MDM - Back Pain/Injury MDM Narrative Medical decision making narrative: Patient is a 43-year-old female with chronic back pain presenting for worsening pain after fall 1 week ago. She has no red flag symptoms of cauda equina. Has been able to ambulate and drove herself to the hospital. We will do an x-ray to make sure there are not any new acute issues. I do not believe will see any abnormalities on the x-ray will make sure. Also give her Toradol for pain. Patient is asking for a work note. This will be provided. X-ray reviewed by myself and the radiologist shows a grade 1 anterior listhesis of L5 on S1. The patient does states she has been told she has an abnormality like this before. No other concerning findings. She will be discharged home at this time. She is agreeable to this plan. Imaging Data Lumbar spine x-ray: Attestation: I have reviewed the pertinent imaging results. Radiologist's impression: Grade 1 anterolisthesis of L5 on S1, new in the interval since the prior CT of 09/11/2020, associated with chronic L5 spondylolysis (demonstrated to better advantage on the prior CT). Chronic multilevel lumbar spondylosis, nonspecific. Dictated by German Quevedo MD @ 05/21/2023 11:06:36 AM Discharge Plan Discharge Clinical Impression: Low back pain Qualifiers: Chronicity: chronic Back pain laterality: right Sciatica presence: with sciatica Sciatica laterality: sciatica of right side Qualified Code(s): M54.41 - Lumbago with sciatica, right side Patient Disposition: Home, Self-Care Condition: Stable Instructions: Acute Low Back Pain (ED) Additional Instructions: Continue to take Tylenol and ibuprofen for pain. Follow-up with your back pain clinic. Return to emergency department for new or worsening symptoms. Prescriptions: No Action aspirin 81 mg tablet,delayed release (DR/EC) 81 mg PO QDAY albuterol sulfate 90 mcg/actuation HFA aerosol inhaler 2 inh INHALATION Q4-6H Qty: 6.7 4RF levothyroxine 75 mcg tablet 75 mcg PO QDAY Qty: 90 4RF omeprazole 20 mg capsule,delayed release(DR/EC) 20 mg PO QDAY Qty: 90 4RF sumatriptan succinate 50 mg tablet 50 mg PO ONCE PRN (Reason: migraine headache) Qty: 7 7RF Rx Instructions: 1 tablet as needed at the beginning of migraine Vyvanse 60 mg capsule 60 mg PO fluoxetine 40 mg capsule 40 mg PO DAILY lorazepam 0.5 mg tablet 0.5 mg PO QPM PRN (Reason: anxiety) lisdexamfetamine 40 mg capsule 40 mg PO QAM Follow Up/Referrals: Jovana Lee MD [Primary Care Provider] - Stand Alone Forms: [facility] Info Instructions
== END 2023-05-21 11:20 | disposition home or self-care (01) ==
PROVIDERS: Emergency Provider Student in an Organized Health Care Education/Training Program; PCP Family Medicine
DX: M54.41 Lumbago with sciatica, right side (principal)
CPT/HCPCS: 72100; 96372; 99282; 99283; J1885

== ENCOUNTER 2023-06-08 15:34 | Outpatient (CLI) | payer BC, SELFPAY ==
--- OUTSIDE RECORDS SUMMARY | 2023-06-11 05:24 | XMS_ITS | Clinical Summary ---
Author Name Unknown Organization [employer] Address [place], [place] [address] Care Team Providers Care Customer Care Manager Name Role Phone Jovana Lee MD Primary Care Provider + Allergies Active Allergy Reactions Criticality Noted Date Comments Ranitidine Hcl Other - Describe In Comment Field 05/29/2023 Ranitidine Edema Medications Medication Sig Dispensed Refills [...] SUMAtriptan (IMITREX) 50 mg tablet 12/22/2020 Active FLUoxetine (PROZAC) 40 mg capsuleIndications: Recurrent major depressive disorder, in partial remission (HC),Anxiety Take 1 Capsule (40 mg) by mouth once daily. 90 Capsule 03/13/2023 Active LORazepam (ATIVAN) 0.5 mg tabIndications:Anxi ety Take 1 Tablet (0.5 mg) by mouth at bedtime if needed for Anxiety or Sleep. #10 tabs to last 30 days 10 Tablet 2 03/13/2023 Active lisdexamfetamine (Vyvanse) 40 mg capsuleIndications: ADHD (attention deficit hyperactivity disorder), inattentive type Take 1 Capsule (40 mg) by mouth every morning. 30 Capsule 03/13/2023 Active Drysol 20 % external solution 12/22/2020 4 Discontinue d(*Med complete/Re gimen complete/Le duane of care change) Active Problems Problem Noted Date Diagnosed Date [...] agreement signed 12/13/2016 02/01/2021 Overview: 11/22/16 signed .Danwa Deleon DNP, ONLINE PUBLISHER, INPATIENT AUDITOR/psychiatry/hc Moderate episode of recurren t major depressive [...] Encounters Date Type Department Care Team Description 06/05/2023 Telephone [facility] [address] [place] [address] Lyn Rea MD Questions 05/29/2023 7:45 AM CDT Telemedicine [facility] [address] [place] [address] Lyn Rea MD Telehealth; Medication Management (Things are okay, just tired/Not taking the vyvanse, making her fell wierd) 05/28/2023 Travel 03/13/2023 7:45 AM ETHYLBENZENE CRACKING SUPERVISOR Telemedicine [facility] [address] [place] [address] Lyn Rea MD Telehealth; Medication Management from Last 3 Months Immunizations Name Administration [...] PHQ-2 Answer Date Recorded PHQ-2 TOTAL SCORE 2 05/28/2023 Social Connections Answer Date Recorded Frequency of [...] T Respiratory Rate 18 03/22/2015 2:02 PM ETHYLBENZENE CRACKING SUPERVISOR Oxygen Saturation 96% 01/08/2020 4:59 PM ETHYLBENZENE CRACKING SUPERVISOR Inhaled Oxygen Concentration - - Weight 133.7 kg (294 lb 12.8 oz) 04/15/2019 2:09 PM CDT Height 164 cm (5' 4.57) 03/21/2017 4:35 PM ETHYLBENZENE CRACKING SUPERVISOR Body Mass Index 49.72 03/21/2017 4:35 PM ETHYLBENZENE CRACKING SUPERVISOR Plan of Treatment Upcoming Encounters Date Type Department Care Team (Late st Contact Info) Description 06/26/2023 7:45 AM CDT Telemedicine [facility] [address] [facility] [place] [address] Lyn Rea MD [address] [place] [address] Health Maintenance Due Date Last Done Comments HIV for age 15-65 1993 Hepatitis C screening for age 18-79 02/05/1996 BMI (ht and wt on same day) for age 18+ 03/21/2018 03/21/2017, 12/07/2015, 09/23/2015, Additional history exists Pap test for age 21-65 06/26/2022 0, 06/27/2019, 04/07/2014, Additional history exists COVID-19 vaccine series ( season) 2022 02/17/2021, 03/10/2020, 02/12/2020 Colonoscopy through age 75 2023 Lipids for age 45-75 2023 Mammogram for age 45-75 2023 Influenza for age 9-49 10/07/2023 , 11/15/2020, 10/23/2019, Additional history exists Depression screening for age 12+ 05/28/2024 05/29/2023, 03/13/2023, 01/16/2023, Additional history exists Tetanus booster 04/07/2032 04/07/2022, [facility]05 [facility] 03/07/2012, Additional history exists Tdap Completed 04/07/2022, 03/07/2012 Pneumococcal series for age 6-64 Aged Out No longer eligible based on patient's age to complete this topic Procedures Procedure Name Priority Date/Time Associated Diagnosis Comments MANAGER OF SUSTAINABILITY THIN PREP PAP SCREEN IMAGED Routine 06/27/2019 12:00 PM CDT from Last 3 Months or Most Recently Relevant to Health Maintenance Results * MANAGER OF SUSTAINABILITY THIN PREP PAP SCREEN IMAGED (06/27/2019 12:00 PM CDT) Case Report Gynecologic Cytology Report ? Case: [id number] ? Authorizing Provider: ??Jennifer Ramey PA-C ?Collected: ? 06/27/2019 1200 ? Ordering Location: ? [facility] ?Received: ?06/29/2019 0952 ? First Screen: ?Fabian Saleh ? Specimen: ?MANAGER OF SUSTAINABILITY ThinPrep Vial Screening, Cervical/Vaginal ? 07/02/2019 8:08 AM CDT [facility] INTERPRETATION/ RESULT NEGATIVE FOR INTRAEPITHELIAL LESION OR MALIGNANCY (NIL) (none) 07/02/2019 8:08 AM CDT [facility] IMEN ADEQUACY Satisfactory for evaluation No endocervical component seen 07/02/2019 8:08 AM CDT [facility] HPV REQUEST HPV and PAP 07/02/2019 8:08 AM CDT [facility] Date of LMP 05/15/2001 07/02/2019 8:08 AM CDT [facility] Menstrual Status 07/02/2019 8:08 AM CDT [facility] Comment:Nexplanon Additional Information 07/02/2019 8:08 AM CDT [facility] Comment: Interpreted at [facility] - [address], [place], [place] [address] Automated Review Successful 07/02/2019 8:08 AM CDT [facility] Comment:Specimen processed s uccessfully by automated publications production supervisor device, [employer] Imaging System, [employer] ANCILLARY TESTING MANAGER OF SUSTAINABILITY HPV Ordered, Please see separate report 07/02/2019 8:08 AM CDT [facility] Note The pap test is a [...] and malignant lesions. 07/02/2019 8:08 AM CDT [facility] Other (Cervical/Vagina l) 06/27/2019 12:00 PM CDT 06/29/2019 9:52 AM CDT May Tanvir D[facility] PATHOLOGY/CYTOLOGY [facility] [address] [place] [address], from Last 3 Months or Most Recently Relevant to Health Maintenance Care Teams Customer Care Manager Relationship Specialty Start Date End Date Jovana Lee MD [address] [facility] [place] [address] PCP - General Family Practice 09/23/15
--- OUTSIDE RECORDS SUMMARY | 2023-06-11 05:24 | XMS_ITS | Clinical Summary ---
Author Name Unknown Organization [facility] Address [address] [place] [address] Care Team Providers Care Acetylene Torch Burner Name Role Phone Inactive, Administrativel Primary Care Provider Source Comments If you need additional information that is not available on Care Everywhere, please contact our Medical Records Department during business hours (Sunday - Sunday, 8 am - 5 pm) at . During nonbusiness hours, please contact our Trauma and Emergency Center at .[facility] Medications * Medications may not be [...] Vaccine ( - 2022-2 4 season) 2022 COLONOSCOPY 2023 DIABETES SCREENING 2023 INFLUENZA (Season Ended) 2023 HPV Vaccine Aged Out No longer eligi ble based on patient's age to complete this topic PNEUMOCOCCAL AGES 0-64 YEARS Aged Out No longer eligible based on patient's age to complete this topic POLIO (IPV) Vaccine Aged Out No longe r eligible based on patient's age to complete this topic Procedures Procedure Name Priority Date/Time Associated Diagnosis Comments PATH PIPING DRAFTER CYTOLOGY (PAP SMEAR) Routine 07/13/2005 from Last 3 Months or Most Recently Relevant to Health Maintenance Results * PATH PIPING DRAFTER CYTOLOGY (PAP SMEAR) (07/13/2005) 07/13/2005 07/13/2005 Narrative 07/18/2005 Patient Name: Sue Park Sex: F : 1980 LMP: NEW OB [facility] Rec #: [id number] Room: [facility] Physician: Carla Travis Cytology #: [id number] Specimen Source/Type: CERVICAL-ENDOCERVICAL/LBC Date Collected: 07/13/2005 Date Received: 07/14/2005 Date Reported: 07/18/2005 Specimen Adequacy: SATISFACTORY FOR EVALUATION. General Categorization: EPITHELIAL CELL ABNORMALITY: SEE DESCRIPTIVE DIAGNOSIS. Interpretation/Result: ATYPICAL SQUAMOUS CELLS OF UNDETERMINED SIGNIFICANCE, (ASC-US). Comments: HPV TESTING SENT TO [place]. Floor Scrubber: JANETH Muller(ASCP) Pathologist: Miguel Ángel Contreras M.D.(Electronically [...] Recently Relevant to Health Maintenance Care Teams Acetylene Torch Burner Relationship Specialty Start Date End Date Inactive, Administrativel [address] [place] [address] PCP - General 01/08/15
== END 2023-06-08 15:35 | disposition home or self-care (01) ==
LOC: NFLDREF 06-11 05:21
PROVIDERS: PCP Family Medicine; Referring Provider Family Medicine; Visit Provider Family Medicine
DX: E03.9 Hypothyroidism, unspecified (principal); E78.5 Hyperlipidemia, unspecified; R79.89 Other specified abnormal findings of blood chemistry; R03.0 Elevated blood-pressure reading, without diagnosis of hypertension
CPT/HCPCS: 80053; 80061; 84443

== ENCOUNTER 2023-08-10 15:15 | Outpatient (CLI) | payer MEDICAID, SELFPAY ==
--- OUTSIDE RECORDS SUMMARY | 2023-08-12 09:20 | XMS_ITS | Clinical Summary ---
Author Organization [facility] Address [address] [place] [address] Care Team Providers Care Cmv Driver Name Role Phone Inactive, Administrativel Primary Care Provider Source Comments If you need additional information that is not available on Care Everywhere, please contact our Medical Records Department during business hours (Sunday - Sunday, 8 am - 5 pm) at . During nonbusiness hours, please contact our Trauma and Emergency Center at .[facility] Medications * Medications may not be [...] SCREENING 07/13/2008 07/13/2005 MAMMOGRAM 2018 COVID-19 Vaccine (2022-2 4 season) 2022 COLONOSCOPY 2023 DIABETES SCREENING 2023 INFLUENZA (#1) 2023 HPV Vaccine Aged Out No longer eligi ble based on patient's age to complete this topic PNEUMOCOCCAL AGES 0-64 YEARS Aged Out No longer eligible based on patient's age to complete this topic POLIO (IPV) Vaccine Aged Out No longe r eligible based on patient's age to complete this topic Procedures Procedure Name Priority Date/Time Associated Diagnosis Comments PATH DIRECTOR CAREER SERVICES CYTOLOGY (PAP SMEAR) Routine 07/13/2005 from Last 3 Months or Most Recently Relevant to Health Maintenance Results * PATH DIRECTOR CAREER SERVICES CYTOLOGY (PAP SMEAR) (07/13/2005) 07/13/2005 07/13/2005 Narrative 07/18/2005 Patient Name: Sue Park Sex: F : 1980 LMP: NEW OB [facility] Rec #: [id number] Room: [facility] Physician: Carla Travis Cytology #: [id number] Specimen Source/Type: CERVICAL-ENDOCERVICAL/LBC Date Collected: 07/13/2005 Date Received: 07/14/2005 Date Reported: 07/18/2005 Specimen Adequacy: SATISFACTORY FOR EVALUATION. General Categorization: EPITHELIAL CELL ABNORMALITY: SEE DESCRIPTIVE DIAGNOSIS. Interpretation/Result: ATYPICAL SQUAMOUS CELLS OF UNDETERMINED SIGNIFICANCE, (ASC-US). Comments: HPV TESTING SENT TO [place]. Phytopathologist: JANETH Muller(ASCP) Pathologist: Miguel Ángel Contreras M.D.(Electronically [...] Recently Relevant to Health Maintenance Care Teams Cmv Driver Relationship Specialty Start Date End Date Inactive, Administrativel [address] [place] [address] [facility] - General 01/08/15
--- OUTSIDE RECORDS SUMMARY | 2023-08-12 09:20 | XMS_ITS | Continuity of Care Document ---
Author Organization [facility] Address [address] [place] [address] Phone Care Team Providers Care Crude Oil Treater Name Role Phone [facility] [place], [facility] Unavailable Unavai lable Allergies, Adverse Reactions, Alerts Substance Reaction Status Criticality RANITIDINE HCL Active No Informatio n Medications Medication Instructions Dosage Effective Dates (start - stop) Status Comments TYLENOL (unknown strength) as needed Not Available - Active VYVANSE (unknown strength) Not Available - Active VITAMIN D3 (unknown strength) Not Available - Active LEVOTHYROXINE SODIUM (unknown strength) Not Available - Active OMEPRAZOLE (unknown strength) Not Available - Active aspirin 81 mg tablet,delayed release - Active hydrocodone 5 mg-acetaminophen 325 mg tablet take 1 tablet by oral route up to 2 times every day as needed for pain, NOT exceed #45 for 30 days supply - No Longer Active Chronic pain, temporary script Procedures Procedure Date Inject, Spine, Lumb/sacr, Epi/subarc w/ img Guid Inject, Spine, Lumb/sacr, Epi/subarc w/ img Guid Verified No Separate Anesthesia 024 Est Pt Eval Telehealth Est Pt Eval Moderate Toxicology Test Group B RF Lumbar/Sacral Single Level 4 RF Lumbar/Sacral Addt'l Level 4 RF Lumbar/Sacral Addt'l Level 4 CC Control For Rem/Void Of Mutually Excl usive Proc Change Control for Modifier(s) Change Control for Procedure(s): 2023 RF Lumbar/Sacral Single Level RF Lumbar/Sacral Addtl Level RF Lumbar/Sacral Addtl Level Verified No Separate Anesthesia 024 Inj Anes Facet Jt; Lumb/sac-1st Level Ja Inj Anes Facet Jt; Lumb/sac-2nd Level Ja Inj Anes Facet Jt; Lumb/sac-2nd Level Ja Inj Anes Facet Jt; Lumb/sac-3rd Level Ja Inj Anes Facet Jt; Lumb/sac-3rd Level Ja Inj Anes Facet Jt; Lumb/sac-1st Level Ja Inj Anes Facet Jt; Lumb/sac-2nd Level Ja Inj Anes Facet Jt; Lumb/sac-3rd Level Ja Inj Anes Facet Jt; Lumb/sac-2nd Level Ja Inj Anes Facet Jt; Lumb/sac-3rd Level Ja Change Control for Modifier(s) Change Control for Procedure(s): 2023 Verified No Separate Anesthesia 024 Est Pt Eval Telehealth Inj Anes Facet Jt; Lumb/sac-1st Level No Inj Anes Facet Jt; Lumb/sac-2nd Level No Inj Anes Facet Jt; Lumb/sac-3rd Level No Inj Anes Facet Jt; Lumb/sac-2nd Level No Inj Anes Facet Jt; Lumb/sac-3rd Level No Change Control for Modifier(s) Change Control for Procedure(s): 2022 Inj Anes Facet Jt; Lumb/sac-1st Level No Inj Anes Facet Jt; Lumb/sac-2nd Level No Inj Anes Facet Jt; Lumb/sac-2nd Level No Inj Anes Facet Jt; Lumb/sac-3rd Level No Inj Anes Facet Jt; Lumb/sac-3rd Level No Verified No Separate Anesthesia 023 Est Pt Eval Telehealth Inj Anes Epidur; Lumb/sac 1 Le Inj Anes Epidur; Lumb/sac 1 Le Verified No Separate Anesthesia 023 Est Pt Eval 25 Min Inject, Spine, Lumb/sacr, Epi/subarc w/ img Guid CC Control For Rem/Void Of Mutually Excl usive Proc Inject, Spine, Lumb/sacr, Epi/subarc w/ img Guid Verified No Separate Anesthesia 023 Est Pt Eval 25 Min Telehealth 3 Est Pt Eval 25 Min No Show Visit Fee Est Pt Eval 25 Min Telehealth 1 No Charge Psychiatric Diagnostic Evaluation Telehe alth Est Pt Eval 25 Min Est Pt Eval 15 Min Inj Anes Epidur; Lumb/sac 1 Le 18 Inj Anes Epidur; Lumb/sac 1 Le 18 Inj Anes Epidur; Lumb/sac 1 Le 18 Inj Anes Epidur; Lumb/sac 1 Le 18 Inject, Spine, Lumb/sacr, Epi/subarc w/ img Guid Inject, Spine, Lumb/sacr, Epi/subarc w/ img Guid New Pt Eval 45 Min Inject, Spine, Lumb/sacr, Epi/subarc w/ img Guid Advance Directives Directive Yes / No Effective Date File Name No Information Encounters Encounter Description Practice Location Reason(s) For Visit Diagnoses Date Provider Providers Copied on Encounter [facility], [address], [place], [address], [place] tel:[phone] [facility] lower back pain (chief complaint) Radiculopathy, lumbar region 4 [facility]. [address], [place], [place], [address], [place]. tel:[phone] Referring Provider: Geraldo Reese, [address], [place], [address] . tel:[phone] [facility], [address], [place], [place], [address], [place] tel:[phone] [facility] No Information 4 Hugh Chow. [address], [place], [place], [address], [place]. tel:[phone] Referring Provider: Geraldo Reese, [address], [place], [address] . tel:[phone] [facility], [address], [place], [place], [address], [place] tel:[phone] [facility] No Information 4 Hugh Chow. [address], [place], [place], [address], [place]. tel:[phone] Referring Provider: Geraldo Reese, [address], [place], [address] . tel:[phone] Est Pt Eval Telehealth [facility], [address], [place], [place], [address], [place] tel:[phone] [facility] body pain (chief complaint) Body mass index (BMI) 45.0-49.9, adultRadiculop athy, lumbar regionCervical giaPain in thoracic spine 4 She Qiying. [address], [place], [address], [place]. tel:[phone] Referring Provider: Curt Walter, [address] [place], [address]. tel:[phone] Est Pt Eval Moderate [facility], [facility], [address], [place], [place], [address], [place] tel:[phone] [facility] back pain (chief complaint) right shoulder pain (chief complaint) Radiculopathy, lumbar regionSacroili itis, not elsewhere classifiedCerv icalgiaPain in thoracic spineBody mass index (BMI) 45.0-49.9, adultElevated blood-pressure reading, w/o diagnosis of htn 4 She Qiying. [address], [place], [address], [place]. tel:[phone] Referring Provider: Curt Walter, [address] [place], [address]. tel:[phone] [facility], [address], [place], [place], [address], [place] tel:[phone] [facility] No Information 4 She Qiying. [address], [place], [address], [place]. tel:[phone] Referring Provider: Curt Walter, [address] [place], [address]. tel:[phone] [facility], [address], [place], [address], [place] tel:[phone] [facility] back pain (chief complaint) Spondylosis w/o myelopathy or radiculopathy, lumbar regionSpondylo sis w/o myelopathy or radiculopathy, lumbar region 4 [facility]. [address], [place], [place], [address], [place]. tel:[phone] Referring Provider: Rivas Monson, [address], [place], [address]. tel:[phone] [facility], [address], [place], [place], [address], [place] tel:[phone] [facility] No Information 4 Marcia Hathaway. [address], [place], [address], [place]. tel:[phone] Referring Provider: Rivas Monson, [address], [place], [address]. tel:[phone] [facility], [address], [place], [place], [address], [place] tel:[phone] [facility] No Information 4 Marcia Hathaway. [address], [place], [address], [place]. tel:[phone] Referring Provider: Rivas Monson, [address], [place], [address]. tel:[phone] [facility], [address], [place], [place], [address], [place] tel:[phone] [facility] No Information 4 Marcia Hathaway. [address], [place], [address], [place]. tel:[phone] Referring Provider: Rivas Monson, [address], [place], [address]. tel:[phone] [facility], [address], [address], [place] tel:[phone] [facility] Spondylosis w/o myelopathy or radiculopathy, lumbar regionSpondylo sis w/o myelopathy or radiculopathy, lumbar region 4 [facility]. [address], [place], [place], [address], [place]. tel:[phone] Referring Provider: Rivas Monson, [address], [place], [address]. tel:[phone] [facility], [address], [place], [address], [place] tel:[phone] [facility] No Information 4 Marcia Hathaway. [address], [place], [address], [place]. tel:[phone] Referring Provider: Rivas Monson, [address], [place], [address]. tel:[phone] Est Pt Eval Telehealth [facility], [address], [place], [place], [address], [place] tel:[phone] [facility] back pain (chief complaint) Radiculopathy, lumbar regionBody mass index (BMI) 40.0-44.9, adult Nov- 3 Steele Audrey. [address] [place], [address], [place]. tel:[phone] Referring Provider: Curt Walter, [facility] [place], [address]. tel:[phone] [facility], [address], [place], [address], [place] tel:[phone] [facility] Spondylosis w/o myelopathy or radiculopathy, lumbar regionSpondylo sis w/o myelopathy or radiculopathy, lumbar region Nov 3 [facility]. [address], [place], [place], [address], [place]. tel:[phone] Referring Provider: Rivas Monson, [address], [facility] [place], [address]. tel:[phone] [facility], [address], [place], [place], [address], [place] tel:[phone] [facility] No Information 3 Marcia Hathaway. [address], [place], [address], [place]. tel:[phone] Referring Provider: Rivas Monson, [address], [place], [address]. tel:[phone] [facility], [address], [place], [place], [address], [place] tel:[phone] [facility] No Information 3 Marcia Hathaway. [address], [place], [address], [place]. tel:[phone] Referring Provider: Rivas Monson, [address], [place], [address]. tel:[phone] Est Pt Eval Telehealth [facility], [facility], [address], [place], [place], [address], [place] tel:[phone] [facility] back pain (chief complaint) Body mass index (BMI) 40.0-44.9, adultRadiculop athy, lumbar regionOther intervertebral disc degeneration, lumbosacral region Sep-1 3 Cedric Ventura. [address], [place], [address], [place]. tel:[phone] Referring Provider: Curt Walter, [address] [facility], [place], [address]. tel:[phone] [facility], [address], [place], [address], [place] tel:[phone] [facility] [place] back pain (chief complaint) Radiculopathy, lumbar regionRadiculo jorge, lumbar region Sep-0 3 [facility]. [address], [place], [place], [address], [place]. tel:[phone] Referring Provider: Emmanuel Stoner, [address], [place], [address]. tel:[phone] NEHAL Gutierrez, [address], [place], [place], [address], [place] tel:[phone] [facility] No Information Sep-0 3 Herbie Benitez. [address], [place], [address], [place]. tel:[phone] Referring Provider: Emmanuel Stoner, [address], [place], [address]. tel:[phone] [facility], [address], [place], [place], [address], [place] tel:[phone] [facility] No Information Sep-0 3 Herbie Benitez. [address], [place], [address], [place]. tel:[phone] Referring Provider: Curt Walter, [address] [place], [address]. tel:[phone] Est Pt Eval 25 Min [facility], [facility], [address], [place], [place], [address], [place] tel:[phone] [facility] back pain (chief complaint) Radiculopathy, lumbar regionOther intervertebral disc degeneration, lumbosacral regionBody mass index (BMI) 40.0-44.9, adult Gage-0 3 Steele Audrey. [address] [place], [address], [place]. tel:[phone] Referring Provider: Curt Walter, [address] [place], [address]. tel:[phone] [facility], [address], [place], [address], [place] tel:[phone] [facility] back pain (chief complaint) Radiculopathy, lumbar regionRadiculo jorge, lumbar region 3 [facility]. [address], [place], [place], [address], [place]. tel:[phone] Referring Provider: Vania Dobson , [address], [place], [address]. tel:[phone] [facility], [address], [place], [place], [address], [place] tel:[phone] [facility] No Information 3 Olya Caro. [address], [place], [address], [place]. tel:[phone] Referring Provider: Vania Dobson , [address], [place], [address]. tel:[phone] [facility], [facility], [address], [place], [place], [address], [place] tel:[phone] [facility] [place] No Information 3 Olya Caro. [address], [place], [address], [place]. tel:[phone] Referring Provider: Vania Andersondorf , [address], [place], [address]. tel:[phone] Est Pt Eval 25 Min Telehealth [facility], [facility], [address], [place], [place], [address], [place] tel:[phone] [facility] back pain (chief complaint) Intervertebral disc disorders w radiculopathy, lumbar regionBody mass index (BMI) 40.0-44.9, adult 3 Monique Butler. [address], [place], [address], [place]. tel:[phone] Referring Provider: Curt Walter, [facility] [address] [facility], [place], [address]. tel:[phone] Est Pt Eval 25 Min [facility], [facility], [address], [place], [place], [address], [place] tel:[phone] [facility] back pain (chief complaint) Intervertebral disc disorders w radiculopathy, lumbar regionBody mass index (BMI) 40.0-44.9, adult 3 Dineshmodavid Butler. [address], [place], [address], [place]. tel:[phone] Referring Provider: Curt Walter, [address] [place], [address]. tel:[phone] [facility], [address], [place], [place], [address], [place] tel:[phone] [facility] No Information 3 Monique Butler. [address], [place], [address], [place]. tel:[phone] Referring Provider: Curt Walter, [address] [facility], [place], [address]. tel:[phone] Est Pt Eval 25 Min Telehealth [facility], [address] [facility] [address], [place], [place], [address], [place] tel:[phone] [facility] back pain (chief complaint) Intervertebral disc disorders w radiculopathy, lumbar region 1 Enrico Childress. [address] [facility] [address], [place], [address], [place]. tel:[phone] Referring Provider: Mary Monson, [address] [place], [address]. tel:[phone] [facility], [address], [place], [place], [address], [place] tel:[phone] [facility] No Information 1 Den Donaldson. [address], [place], [address], [place]. tel:[phone] Referring Provider: Mary Monson, [address] [place], [address]. tel:[phone] Psychiatric Diagnostic Evaluation Telehealth [facility], [address], [place], [place], [address], [place] tel:[phone] [facility] Pain disorder with related psychological factors 1 Den Donaldson. [address], [place], [address], [place]. tel:[phone] Referring Provider: Mary Monson, [address] [place] [facility], [place], [address]. tel:[phone] Est Pt Eval 25 Min [facility], [facility], [address], [place], [place], [address], [place] tel:[phone] [facility] Leg Pain (chief complaint) back pain (chief complaint) Low back painPain in legOther muscle spasmBody mass index (BMI) 45.0-49.9, adult 1 Chuckie Wheeler. [address], [place], [address], [place]. tel:[phone] Referring Provider: Mary Monson, [address] [place], [address]. tel:[phone] Est Pt Eval 15 Min [facility], [facility], [address], [place], [place], [address], [place] tel:[phone] [facility] back pain (chief complaint) Spondyls w/o myelopathy or radiculopathy, lumbosacr regionOsseous and sublux stenos of intvrt foramin of lumbar region Apr-2 5-201 8 Dinega Gelane. [address], [place], [address], [place]. tel:[phone] Referring Provider: Mary Monson, [address] [place], [address]. tel:[phone] [facility], [address], [place], [address], [place] tel:[phone] [facility] back pain (chief complaint) Intervertebral disc disorders w radiculopathy, lumbar regionOther intervertebral disc degeneration, lumbosacral regionInterver tebral disc disorders w radiculopathy, lumbar regionOther intervertebral disc degeneration, lumbosacral region [facility]. [address], [place], [place], [address], [place]. tel:[phone] Referring Provider: Ismael Milton, [address], [place], [address] . tel:[phone] [facility], [address], [place], [place], [address], [place] tel:[phone] [facility] No Information 8 Chuckie Guevara. [address], [place], [place], [address], [place]. tel:[phone] Referring Provider: Ismael Milton, [address], [place], [address] . tel:[phone] [facility], [address], [place], [address], [place] tel:[phone] [facility] back pain (chief complaint) Intervertebral disc disorders w radiculopathy, lumbar regionOther intervertebral disc degeneration, lumbosacral regionInterver tebral disc disorders w radiculopathy, lumbar regionOther intervertebral disc degeneration, lumbosacral region Apr- 8 [facility]. [address], [place], [place], [address], [place]. tel:[phone] Referring Provider: Ismael Milton, [address], [place], [address] . tel:[phone] New Pt Eval 45 Min [facility], [facility], [address], [place], [place], [address], [place] tel:[phone] [facility] back pain (chief complaint) Osseous and sublux stenos of intvrt foramin of lumbar regionSpondylo sis w/o myelopathy or radiculopathy, lumbosacral region 8 No Information Referring Provider: Mary Deluca MD S, [address] [place], [place], [address]. tel:[phone] [facility], [address], [place], [place], [address], [place] tel:[phone] [facility] No Information Chuckie Guevara. [address], [place], [place], [address], [place]. tel:[phone] Referring Provider: Ismael Milton, [address], [place], [address] . tel:[phone] Family History Family Member Type Diagnosis Age At Onset Father Problem (finding) Cancer Payers Payer name Insurance type Covered libertarian ID Authoradonis rivera(s) [employer] [facility] [id number] Social History Type Description Quantity Date Captured Comments Sex Female Smoking Status No Information Chief Complaint And Reason For Visit No Information Reason For Referral Reason For Referral No Information Plan Of Treatment Date Type Action Status Goal Tobacco cessation counseling completed Goal Tobacco cessation counseling completed Goal Lifestyle education regardin g diet completed Goal Tobacco cessation counseling completed Referral Ordered: Physical Therapy (related to Intervertebral disc disorders w radiculopathy, lumbar region) ordered Referral Referred To: Physical Therapy Ordered: Referrals: Physical Therapy. Evaluate and treat ordered Referral Ordered: Behavioral Health (related to Low back pain) ordered Referral Referred To: transforaminal LESI Ordered: transforaminal LESI on both sides L5-S1 ordered Referral Referred To: Physical Therapy Ordered: Physical Therapy ordered Referral Ordered: Referrals: Behavioral Health ordered History Of Present Illness Encounter Date Complaint History Of Shon nt Illness lower back pain The pain is loca travon in the low back on both sides. body pain The pain is loca travon in the neck to hips. Pain intensity is currently 6/10.The pain is described as aching and stabbing. The following activities make the pain worse: movement and 0. The following activities make the pain better: rest. Studies Reviewed MRI - Thoracic Spine W/O Contrast performed on 06/21/2023. Result: CONCLUSION: Multilevel thoracic degenerative changes with specifics as follows:1 Disc protrusions at scattered levels as described, flattening the ventral cord at T2-3, T5-6, and T6-7 without central stenosis, netta cord impingement, or mesial change at any imaged level.2. Large right ventrolateral endplate osteophytes at every level from T6-7 through T11-12 with STIR hyperintense reactive changes in the adjacent paravertebral soft tissues, a potential source of axial/mechanical mid back pain.3. No vertebral collapse, acute fracture, or destructive osseous lesion. Studies Reviewed MRI - Cervical Spine W/O Contrast performed on 06/21/2023. Result: CONCLUSION: Multilevel cervical degenerative changes with specifics as follows:1 Multilevel dorsal annular bulging and/or protrusions flattening the ventral cord at C3-4, C5-6, and C6-7, with mild central stenosis at C5-6 and C6-7. No netta cord impingement or cord signal change.2. Mild chronic foraminal stenosis on the right at C5-6.3. No vertebral collapse, acute fracture, or destructive osseous lesion. back pain Location of pain is right sided low back. Pain is radiated to the right leg. The patient describes the pain as an ache, sharp, throbbing and spasming. Symptoms are aggravated by standing and walking. Symptoms are relieved by witting in recliner. Additional information: Patient tripped on the sidewalk on 05/21/23 falling on her hands and knees which exacerbated her pain. She was seen at [facility] ER on 05/21/23 due to increased pain and received imaging and a Toradol injection which she found helpful. right shoulder pain Location: ri ght shoulder. The pain is aching, sharp, throbbing and spasming. The pain is aggravated by walking and standing. The pain is relieved by sitting in recliner. back pain back pain Location of pain is lower back. Pain is radiated to the right calf and right thigh. The patient describes the pain as an ache, burning and shooting. Symptoms are aggravated by sitting and activity. Symptoms are relieved by sitting. back pain Location of pain is lower back. Pain is radiated to the Right leg. The patient describes the pain as numbness, shooting, stabbing and throbbing. Symptoms are aggravated by daily activities and walking. Symptoms are relieved by sitting. back pain Location of pain is lower back. back pain The problem is s table. It occurs persistently. Location of pain is lower back. Additional information: Right lower back. back pain Location of pain is lower back and right side. back pain Location of pain is lower back. Pain is radiated to the right hip. The patient describes the pain as shooting, stabbing and dull. Symptoms are aggravated by daily activities, sitting and standing. Symptoms are relieved by heat and over the counter medication: tylenol. back pain Severity level i s 7. The problem is worsening. It occurs persistently. Location of pain is lower back. Pain is radiated to the right hip. The patient describes the pain as sharp, shooting and stabbing. Symptoms are aggravated by daily activities, lying/rest, standing, walking and movement. Symptoms are relieved by heat, ice, stretching and rest. back pain Severity level i s 8. The problem is worsening. Location of pain is lower back.The patient describes the pain as an ache, dull and sharp. Symptoms are aggravated by daily activities. Symptoms are relieved by rest. back pain Severity level i s 8. Location of pain is lower back. Pain is radiated to the left thigh and right thigh.The patient describes the pain as sharp and throbbing. Symptoms are aggravated by daily activities and movement. Symptoms are relieved by heat, ice, lying down and rest. Leg Pain Severity level i s 8. Location: bilateral. The pain is sharp and throbbing. The pain is aggravated by movement and daily activities. The pain is relieved by heat, ice and rest. back pain Location of pain is lower back.There is no radiation of pain. The patient describes the pain as burning, shooting and stabbing. Symptoms are aggravated by sitting, standing and walking. Symptoms are relieved by sitting. back pain Severity level i s moderate-severe. The problem is fluctuating. It occurs persistently. Location of pain is lower back.The patient describes the pain as an ache, burning, sharp, stabbing and throbbing. back pain Severity level i s moderate-severe. It occurs persistently. Location of pain is lower back, left flank and right flank.The patient describes the pain as burning, sharp, shooting, stabbing and throbbing. back pain Location of pain is lower back.There is no radiation of pain. The patient describes the pain as an ache, burning, numbness, piercing, sharp, shooting and stabbing. Symptoms are aggravated by ascending stairs, bending, daily activities, extension, flexion, jumping, lifting, pushing and rolling over in bed. Symptoms are relieved by rest and sitting. Functional Status Date Functional Assessmen t No Information Instructions Date Instruction Additional Marthar joe - Follow up in clini c with a nurse practitioner or physician lab assistant about the results of today's injection Related to Radiculopathy, lumbar region - Can consider gisella cic epidural steroid injection at T6-7 Related to Pain in thoracic spine - Ordered cervical e pidural steroid injection at C3-4. Once approved, Matt will call to schedule Related to Cervicalgia - Keep repeat lumbar epidural steroid injection as scheduled on 07/13/23- Refilled and continued Clinton 5-325mg up to 1-2x/day as needed with #45 for 30 day supply for fill on 06/23/23- Continue Flexeril 10mg up to 3x a day as needed, no refill needed- Follow up with Araceli Mayen [employer]RO[employer] in one month or 2 weeks after injection, telehealth ok Related to Radiculopathy, lumbar region Giving encouragement to exercise Related to Body mass index [BMI] 45.0-49.9, adult - [facility] up with [facility] provider if high blood pressure persists Related to Elevated blood-pressure reading, w/o diagnosis of htn - Consider sacroilia c joint injection on right side pending pain relief from lumbar epidural steroid injection Related to Sacroiliitis, not elsewhere classified - Ordered MRI of tho racic spine at [facility], they will call you to schedule Related to Pain in thoracic spine - Ordered MRI of cer vical spine at [facility], they will call you to schedule Related to Cervicalgia - Requested medical records from [facility] and [facility]- Ordered repeat lumbar epidural steroid injection, Matt will call you to schedule once insurance approves- Prescribed Clinton 5-325mg up to 1-2x/day as needed with #45 for 30 day supply- Continue Flexeril 10mg up to 3x a day as needed-Follow up with Nurse Practitioner in one month, telehealth ok Related to Radiculopathy, lumbar region Giving encouragement to exercise Related to Body mass index [BMI] 45.0-49.9, adult Giving encouragement to exercise Related to Elevated blood-pressure reading, w/o diagnosis of htn - Follow up in the c linic- Consider sacroiliac joint injection in the future Related 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 Once approved, scheduling will reach out to make an appointment. If you do not hear form Matt in 5 days, contact scheduling regarding approval status and can make appointment.-If there is 80% temporary pain relief from medial branch blocks, can proceed with radiofrequency ablation-Continue Flexeril 10mg up to 3x a day as needed-Follow up with Nurse Practitioner after medial branch block via telehealth Related to Radiculopathy, lumbar region Giving encouragement to exercise Related to Body mass index [BMI] 40.0-44.9, adult - Schedule lumbar me dial branch blocks-confirmatory procedure if 80% or greater pain relief- If incomplete pain relief, consider SI joint injection- If no pain relief from SI joint injection, consider discogram and referral to Dr. 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 Once approved, scheduling will reach out to make an appointment. If you do not hear form Matt in 5 days, contact scheduling regarding approval status and can make appointment.-If there is 80% temporary pain relief form initial medial branch blocks, can proceed with confirmatory medial branch block and radiofrequency ablation-Continue Flexeril 10mg up to 3x a day-Follow up with Nurse Practitioner after medial branch block via telehealth Related to Radiculopathy, lumbar region Same plan of care as above Relat ed to Other intervertebral disc degeneration, lumbosacral region Giving encouragement to exercise Related to Body mass index [BMI] 40.0-44.9, adult -Follow up in clinic with Audrey to discuss results from today's injection* pain was in L5-S1 distribution Related to Radiculopathy, lumbar region -Start Flexeril 10mg up to 3x a day for fill today-Ordered a right-sided transforaminal lumbar epidural steroid injection with sedation, scheduling will contact you to make an appointment once approved by insurance.-Follow up with ANDREA in one month, telehealth ok Related to Radiculopathy, lumbar region Same plan of care as above Relat ed to Other intervertebral disc degeneration, lumbosacral region Lifestyle education regarding di et Related to Body mass index [BMI] 40.0-44.9, adult - Follow up in the [facility] to discuss the results of the injection and potential Lumbar medial branch block series at L2,3,4 if limited pain relief Related to Radiculopathy, lumbar region -No medications pres cribed today -Schedule lumbar epidural steroid injection-Schedule physical therapy -Follow up with ANDREA after injection The risks and benefits of the procedure will be reviewed with the physician on the day of the procedure. 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, lumbar region Giving encouragement to exercise Related to Body mass index [BMI] 40.0-44.9, adult -No medications pres cribed today -Order lumbar MRI at [facility]-Order stationary neutral A/P and lateral views x rays at [facility] -Order lateral flexion vs extension x ray of the lumbar spine at [facility]-Order right hip MR at [facility]-Handout given for medical cannabis certification -Follow up with ANDREA after imaging completed The risks and benefits of the procedure will be reviewed with the physician on the day of the procedure. 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, lumbar region Giving encouragement to exercise Related to Body mass index [BMI] 40.0-44.9, adult -No medications pres cribed today -Schedule Transforaminal Lumbar Epidural Steroid Injection at F3-Y0-Scrftf up as needed The risks and benefits of the procedure will be reviewed with the physician on the day of the procedure. 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, lumbar region - Order MRI of the l umabr spine at [facility]- Order stationary neutral A/P and lateral views x rays at [facility].- Order lateral flexion vs extension x ray of the lumbar spine at [facility].- [facility] - records from [facility] - schedule bilateral transforaminal lumbar epidural steroid injection at L5-S1 will plan for a series if successful - refer to physical therapy - refer to behavioral health - no medications prescribed today, continue with current medications as prescribed per outside provider - return in one month with advanced practice provider to discuss plan of care and imaging The risks and benefits of the procedure will be reviewed with the physician on the day of the procedure. Related to Low back pain Same plan of care as statement for above diagnosis, no changes Related to Other muscle spasm Same plan of care as statement for above diagnosis, no changes Related to Pain in leg Prescribed activity/ exercise education Related to Body mass index [BMI] 45.0-49.9, adult Dietary needs education Related to Body mass index [BMI] 45.0-49.9, adult Assessments Type Assessment Date No Information Patient Care Teams Name Effective Dates (start - stop) Status Members No Information
--- OUTSIDE RECORDS SUMMARY | 2023-08-12 09:20 | XMS_ITS | Clinical Summary ---
Author Organization [facility] Address [place], [place] [address] Care Team Providers Care Staff Therapist Name Role Phone Jovana Lee MD Primary [...] tablet 12/22/2020 Active FLUoxetine (PROZAC) 40 mg capsuleIndications:R [...] 02/01/2021 Overview: 11/22/16 signed .Dawna Deleon DNP, TOOLROOM KEEPER, CYLINDER SANDER OPERATOR/psychiatry/hc Moderate episode of recurren t major depressive [...] Type Department Care Team Description 06/05/2023 Telephone [facility] [address] [place] [address] Lyn Rea MD Questions 05/29/2023 7:45 AM CDT Telemedicine [facility] [address] [place] [address] Lyn Rea MD Telehealth; Medication Management (Things are okay, just tired/Not taking the vyvanse, making her fell wierd) 05/28/2023 Travel from Last 3 Months Immunizations Name [...] T Respiratory Rate 18 03/22/2015 2:02 PM DRESSMAKING TEACHER Oxygen Saturation 96% 01/08/2020 4:59 PM DRESSMAKING TEACHER Inhaled Oxygen Concentration - - Weight 133.7 kg (294 lb 12.8 oz) 04/15/2019 2:09 PM CDT Height 164 cm (5' 4.57) 03/21/2017 4:35 PM DRESSMAKING TEACHER Body Mass Index 49.72 03/21/2017 4:35 PM DRESSMAKING TEACHER Plan of Treatment Upcoming Encounters Date Type Department Care Team (Late st Contact Info) Description 09/10/2023 8:45 AM CDT Telemedicine [facility] [address] [place] [address] Lyn Rea MD [address] [place] [address] Health Maintenance Due Date Last Done Comments [...] booster 04/07/2032 04/07/2022, 04/05 (Completed outside of [facility]), 03/07/2012, Additional history exists Tdap Completed 04/07/2022, 03/07/2012 Pneumococcal series for age 6-64 Aged Out No longer eligible based on patient's age to complete this topic Procedures Procedure Name Priority Date/Time Associated Diagnosis Comments AUTOMATIC QUILLING MACHINE OPERATOR THIN PREP PAP SCREEN IMAGED Routine 06/27/2019 12:00 PM CDT from Last 3 Months or Most Recently Relevant to Health Maintenance Results * AUTOMATIC QUILLING MACHINE OPERATOR THIN PREP PAP SCREEN IMAGED (06/27/2019 12:00 PM CDT) Case Report Gynecologic Cytology Report ? Case: [id number] ? Authorizing Provider: ??Jennifer Ramey PA-C ?Collected: ? 06/27/2019 1200 ? Ordering Location: ? [facility] ?Received: ?06/29/2019 0952 ? First Screen: ?Fabian Saleh ? Specimen: ?AUTOMATIC QUILLING MACHINE OPERATOR ThinPrep Vial Screening, Cervical/Vaginal ? 07/02/2019 8:08 AM CDT [facility] INTERPRETATION/ RESULT NEGATIVE FOR INTRAEPITHELIAL LESION OR MALIGNANCY (NIL) (none) 07/02/2019 8:08 AM CDT [facility] IMEN ADEQUACY Satisfactory for evaluation No endocervical component seen 07/02/2019 8:08 AM CDT [facility] EN[facility]AL LAB[facility] HPV REQUEST HPV and PAP 07/02/2019 8:08 AM CDT [facility] Date of LMP 05/15/2001 07/02/2019 8:08 AM CDT [facility] ENTRAL LABORATORY Menstrual Status 07/02/2019 8:08 AM CDT [facility] Comment:Nexplanon Additional Information 07/02/2019 8:08 AM CDT [facility] Comment: Interpreted at [facility] - [address] [place] [address], [place] [address] Automated Review Successful 07/02/2019 8:08 AM CDT [facility] ENTRAL LABORATORY Comment:Specimen processed s uccessfully by automated steam cleaner device, ThinPrep Imaging System, [employer] ANCILLARY TESTING AUTOMATIC QUILLING MACHINE OPERATOR HPV Ordered, Please see separate report 07/02/2019 8:08 AM CDT [facility] ENTRAL LABORATORY Note The pap test is [...] and malignant lesions. 07/02/2019 8:08 AM CDT [facility] ENTRWY LABORATORY Other (Cervical/Vagina l) 06/27/2019 12:00 PM CDT 06/29/2019 9:52 AM CDT May Tanvir DUMONT PATHOLOGY/CYTOLOGY [facility]-CENTRAL LABORATORY [address] [place] [address] [employer] [address] [place] [address], from Last 3 Months or Most Recently Relevant to Health Maintenance Care Teams Staff Therapist Relationship Specialty Start Date End Date Jovana Lee MD [address] [facility] [place] [address] PCP - General Family Practice 09/23/15
== END 2023-08-10 15:16 | disposition home or self-care (01) ==
LOC: NFLDREF 08-12 09:19
PROVIDERS: PCP Family Medicine; Referring Provider Family Medicine; Visit Provider Family Medicine
DX: I10 Essential (primary) hypertension (principal)
CPT/HCPCS: 80048

== ENCOUNTER 2023-08-14 07:06 | Outpatient (CLI) | payer MEDICAID, SELFPAY ==
--- OUTSIDE RECORDS SUMMARY | 2023-08-14 07:08 | XMS_ITS | Clinical Summary ---
Author Organization [facility] Address [address] [place] [address] Care Team Providers Care Delicatessen Clerk Name Role Phone Inactive, Administrativel Primary Care Provider Source Comments If you need additional information that is not available on Care Everywhere, please contact our Medical Records Department during business hours (Sunday - Sunday, 8 am - 5 pm) at . During nonbusiness hours, please contact our Trauma and Emergency Center at .[facility] Medications * Medications may not be up [...] Name Priority Date/Time Associated Diagnosis Comments PATH CHOCOLATE DIPPER CYTOLOGY (PAP SMEAR) Routine 07/13/2005 from Last 3 Months or Most Recently Relevant to Health Maintenance Results * PATH CHOCOLATE DIPPER CYTOLOGY (PAP SMEAR) (07/13/2005) 07/13/2005 07/13/2005 Narrative 07/18/2005 Patient Name: Sue Park Sex: F : 1980 LMP: NEW OB [facility] Rec #: [id number] Room: [facility] Physician: Carla Travis Cytology #: [id number] Specimen Source/Type: CERVICAL-ENDOCERVICAL/LBC Date Collected: 07/13/2005 Date Received: 07/14/2005 Date Reported: 07/18/2005 Specimen Adequacy: SATISFACTORY FOR EVALUATION. General Categorization: EPITHELIAL CELL ABNORMALITY: SEE DESCRIPTIVE DIAGNOSIS. Interpretation/Result: ATYPICAL SQUAMOUS CELLS OF UNDETERMINED SIGNIFICANCE, (ASC-US). Comments: HPV TESTING SENT TO [facility]. Ticket Taker Ferryboat: JANETH Muller(ASCP) Pathologist: Miguel Ángel Contrreas M.D.(Electronically Signed) NOTE: The pap smear is [...] Recently Relevant to Health Maintenance Care Teams Delicatessen Clerk Relationship Specialty Start Date End Date Inactive, Administrativel [address] [place] [address] [facility] - General 01/08/15
--- OUTSIDE RECORDS SUMMARY | 2023-08-14 07:08 | XMS_ITS | Continuity of Care Document ---
Author Organization Matt [facility] Address [address] [place] [address] Phone Care Team Providers Care Shift Lab Technician Name Role Phone [facility], [facility] Unavailable Unavai lable Allergies, Adverse Reactions, Alerts Substance Reaction Status Criticality RANITIDINE HCL Active No Informatio n Medications Medication Instructions Dosage Effective Dates (start - stop) Status Comments aspirin 81 mg tablet,delayed release - Active OMEPRAZOLE (unknown strength) Not Available - Active LEVOTHYROXINE SODIUM (unknown strength) Not Available - Active VITAMIN D3 (unknown strength) Not Available - Active VYVANSE (unknown strength) Not Available - Active TYLENOL (unknown strength) as needed Not Available - Active hydrocodone 5 mg-acetaminophen 325 mg [...] Copied on Encounter [facility], [address], [place], [address], [place] tel:[phone] [facility] lower back pain (chief complaint) Radiculopathy, lumbar region 4 [facility]. [address], [place], [place], [address], [place]. tel:[phone] Referring Provider: Geraldo Reese, [address], [place], [address] . tel:[phone] [facility], [address], [place], [place], [address], [place] tel:[phone] [facility] No Information 4 Hugh Chow. [address], [place], [place], [address], [place]. tel:[phone] Referring Provider: Geraldo Reese, [address], [place], [address] . tel:[phone] Matt [facility], [address], [place], [place], [address], [place] tel:[phone] [facility] No Information 4 Hugh Chow. [address], [place], [place], [address], [place]. tel:[phone] Referring Provider: Geraldo Reese, [address], [place], [address] . tel:[phone] Est Pt Eval Telehealth Matt [facility], [address], [place], [place], [address], [place] tel:[phone] [facility] body pain (chief complaint) Body mass index (BMI) 45.0-49.9, adultRadiculop athy, lumbar regionCervical giaPain in thoracic spine 4 She Qiying. [address], [place], [address], [place]. tel:[phone] Referring Provider: Curt Walter, [address] [place], [address]. tel:[phone] Est Pt Eval Moderate [facility], [facility], [address], [place], [place], [address], [place] tel:[phone] [facility] back pain (chief complaint) right shoulder pain (chief complaint) Radiculopathy, lumbar regionSacroili itis, not elsewhere classifiedCerv icalgiaPain in thoracic spineBody mass index (BMI) 45.0-49.9, adultElevated blood-pressure reading, w/o diagnosis of htn 4 She Qiying. [address], [place], [address], [place]. tel:[phone] Referring Provider: Curt Walter, [address] [place], [address]. tel:[phone] [facility], [address], [place], [place], [address], [place] tel:[phone] [facility] No Information 4 She Qiying. [address], [place], [address], [place]. tel:[phone] Referring Provider: Curt Walter, [address] [place], [address]. tel:[phone] [facility], [address], [place], [address], [place] tel:[phone] [facility] back pain (chief complaint) Spondylosis w/o myelopathy or radiculopathy, lumbar regionSpondylo sis w/o myelopathy or radiculopathy, lumbar region 4 [facility]. [address], [place], [place], [address], [place]. tel:[phone] Referring Provider: Rivas Monson, [address], [place], [address]. tel:[phone] [facility], [address], [place], [place], [address], [place] tel:[phone] [facility] No Information 4 Marcia Hathaway. [address], [place], [address], [place]. tel:[phone] Referring Provider: Rivas Monson, [address], [place], [address]. tel:[phone] [facility], [address], [place], [place], [address], [place] tel:[phone] [facility] No Information 4 Marcia Hathaway. [address], [place], [address], [place]. tel:[phone] Referring Provider: Rivas Monson, [address], [place], [address]. tel:[phone] [facility], [address], [place], [place], [address], [place] tel:[phone] [facility] No Information 4 Marcia Hathaway. [address], [place], [address], [place]. tel:[phone] Referring Provider: Rivas Monson, [address], [place], [address]. tel:[phone] [facility], [address], [place], [address], [place] tel:[phone] [facility] Spondylosis w/o myelopathy or radiculopathy, lumbar regionSpondylo sis w/o myelopathy or radiculopathy, lumbar region 4 [facility]. [address], [place], [place], [address], [place]. tel:[phone] Referring Provider: Rivas Monson, [address], [place], [address]. tel:[phone] [facility], [address], [place], [address], [place] tel:[phone] [facility] No Information 4 Marcia Hathaway. [address], [place], [address], [place]. tel:[phone] Referring Provider: Rivas Monson, [address], [place], [address]. tel:[phone] Est Pt Eval Telehealth [facility], [address], [place], [place], [address], [place] tel:[phone] [facility] back pain (chief complaint) Radiculopathy, lumbar regionBody mass index (BMI) 40.0-44.9, adult Nov- 3 Steele Audrey. [address] [place], [address], [place]. tel:[phone] Referring Provider: Curt Walter, [facility] [place], [address]. tel:[phone] [facility], [address], [place], [address], [place] tel:[phone] [facility] Spondylosis w/o myelopathy or radiculopathy, lumbar regionSpondylo sis w/o myelopathy or radiculopathy, lumbar region Nov 3 [facility]. [address], [place], [place], [address], [place]. tel:[phone] Referring Provider: Rivas Monson, [address], [place], [address]. tel:[phone] [facility], [address], [place], [place], [address], [place] tel:[phone] [facility] No Information 3 Marcia Hathaway. [address], [place], [address], [place]. tel:[phone] Referring Provider: Rivas Monson, [address], [place], [address]. tel:[phone] [facility], [address], [place], [place], [address], [place] tel:[phone] [facility] No Information 3 Marcia Hathaway. [address], [place], [address], [place]. tel:[phone] Referring Provider: Rivas Monson, [address], [place], [address]. tel:[phone] Est Pt Eval Telehealth [facility], [facility], [address], [place], [place], [address], [place] tel:[phone] [facility] back pain (chief complaint) Body mass index (BMI) 40.0-44.9, adultRadiculop athy, lumbar regionOther intervertebral disc degeneration, lumbosacral region Sep-1 3 Cedric Ventura. [address], [place], [address], [place]. tel:[phone] Referring Provider: Curt Walter, [address] [facility], [place], [address]. tel:[phone] [facility], [address], [place], [address], [place] tel:[phone] [facility] back pain (chief complaint) Radiculopathy, lumbar regionRadiculo jorge, lumbar region Sep-0 3 [facility]. [address], [place], [place], [address], [place]. tel:[phone] Referring Provider: Emmanuel Stoner, [address], [place], [address]. tel:[phone] NEHAL Gutierrez, [address], [place], [place], [address], [place] tel:[phone] [facility] No Information Sep-0 3 Herbie Benitez. [address], [place], [address], [place]. tel:[phone] Referring Provider: Emmanuel Stoner, [address], [place], [address]. tel:[phone] [facility], [address], [place], [place], [address], [place] tel:[phone] [facility] No Information Sep-0 3 Herbie Benitez. [address], [place], [address], [place]. tel:[phone] Referring Provider: Curt Walter, [address] [place], [address]. tel:[phone] Est Pt Eval 25 Min Matt, [facility], [address], [place], [place], [address], [place] tel:[phone] [facility] back pain (chief complaint) Radiculopathy, lumbar regionOther intervertebral disc degeneration, lumbosacral regionBody mass index (BMI) 40.0-44.9, adult Gage-0 3 Steele Audrey. [address] [place], [address], [place]. tel:[phone] Referring Provider: Curt Walter, [address] [place], [address]. tel:[phone] [facility], [address], [place], [address], [place] tel:[phone] [facility] back pain (chief complaint) Radiculopathy, lumbar regionRadiculo jorge, lumbar region 3 [facility]. [address], [place], [place], [address], [place]. tel:[phone] Referring Provider: Vania Dobson , [address], [place], [address]. tel:[phone] Matt [facility], [address], [place], [place], [address], [place] tel:[phone] [facility] No Information 3 Olya Caro. [address], [place], [address], [place]. tel:[phone] Referring Provider: Vania Dobson , [address], [place], [address]. tel:[phone] [facility], [facility], [address], [place], [place], [address], [place] tel:[phone] [facility] No Information 3 Olya Caro. [address], [place], [address], [place]. tel:[phone] Referring Provider: Vania Andersondorf , [address], [place], [address]. tel:[phone] Est Pt Eval 25 Min Telehealth [facility], [facility], [address], [place], [place], [address], [place] tel:[phone] [facility] back pain (chief complaint) Intervertebral disc disorders w radiculopathy, lumbar regionBody mass index (BMI) 40.0-44.9, adult 3 Monique Butler. [address], [place], [address], [place]. tel:[phone] Referring Provider: Curt Walter, [facility] [address] [facility], [place], [address]. tel:[phone] Est Pt Eval 25 Min [facility], [facility], [address], [place], [place], [address], [place] tel:[phone] [facility] back pain (chief complaint) Intervertebral disc disorders w radiculopathy, lumbar regionBody mass index (BMI) 40.0-44.9, adult 3 Dineshmodavid Butler. [address], [place], [address], [place]. tel:[phone] Referring Provider: Curt Walter, [address] [place], [address]. tel:[phone] [facility], [address], [place], [place], [address], [place] tel:[phone] [facility] No Information 3 Monique Butler. [address], [place], [address], [place]. tel:[phone] Referring Provider: Curt Walter, [address] [facility], [place], [address]. tel:[phone] Est Pt Eval 25 Min Telehealth [facility], [address] [facility] [address], [place], [place], [address], [place] tel:[phone] [facility] back pain (chief complaint) Intervertebral disc disorders w radiculopathy, lumbar region 1 Enrico Childress. [address] [facility] [address], [place], [address], [place]. tel:[phone] Referring Provider: Mary Monson, [address] [place], [address]. tel:[phone] Matt [facility], [address], [place], [place], [address], [place] tel:[phone] [facility] No Information 1 Den Donaldson. [address], [place], [address], [place]. tel:[phone] Referring Provider: Mary Monson, [address] [place], [address]. tel:[phone] Psychiatric Diagnostic Evaluation Telehealth [facility], [address], [place], [place], [address], [place] tel:[phone] [facility] Pain disorder with related psychological factors 1 Den Donaldson. [address], [place], [address], [place]. tel:[phone] Referring Provider: Mary Monson, [address] [place] [facility], [place], [address]. tel:[phone] Est Pt Eval 25 Min [facility], [facility], [address], [place], [place], [address], [place] tel:[phone] [facility] Leg Pain (chief complaint) back pain (chief complaint) Low back painPain in legOther muscle spasmBody mass index (BMI) 45.0-49.9, adult 1 Chuckie Wheeler. [address], [place], [address], [place]. tel:[phone] Referring Provider: Mary Monson, [address] [place], [address]. tel:[phone] Est Pt Eval 15 Min [facility], [facility], [address], [place], [place], [address], [place] tel:[phone] [facility] back pain (chief complaint) Spondyls w/o myelopathy or radiculopathy, lumbosacr regionOsseous and sublux stenos of intvrt foramin of lumbar region Apr-2 5-201 8 Dinega Gelane. [address], [place], [address], [place]. tel:[phone] Referring Provider: Mary Monson, [address] [place], [address]. tel:[phone] [facility], [address], [place], [address], [place] tel:[phone] [facility] back pain (chief complaint) Other intervertebral disc degeneration, lumbosacral regionInterver tebral disc disorders w radiculopathy, lumbar regionInterver tebral disc disorders w radiculopathy, lumbar regionOther intervertebral disc degeneration, lumbosacral region [facility]. [address], [place], [place], [address], [place]. tel:[phone] Referring Provider: Ismael Milton, [address], [place], [address] . tel:[phone] [facility], [address], [place], [place], [address], [place] tel:[phone] [facility] No Information 8 Chuckie Guevara. [address], [place], [place], [address], [place]. tel:[phone] Referring Provider: Ismael Milton, [address], [place], [address] . tel:[phone] [facility], [address], [place], [address], [place] tel:[phone] [facility] back pain (chief complaint) Other intervertebral disc degeneration, lumbosacral regionInterver tebral disc disorders w radiculopathy, lumbar regionInterver tebral disc disorders w radiculopathy, lumbar regionOther intervertebral disc degeneration, lumbosacral region Apr- 8 [facility]. [address], [place], [place], [address], [place]. tel:[phone] Referring Provider: Ismael Milton, [address], [place], [address] . tel:[phone] New Pt Eval 45 Min Matt, [facility], [address], [place], [place], [address], [place] tel:[phone] [facility] back pain (chief complaint) Osseous and sublux stenos of intvrt foramin of lumbar regionSpondylo sis w/o myelopathy or radiculopathy, lumbosacral region 8 No Information Referring Provider: Mary Deluca MD S, [address] [place] [facility], [place], [address]. tel:[phone] [facility], [address], [place], [place], [address], [place] tel:[phone] [facility] No Information Chuckie Guevara. [address], [place], [place], [address], [place]. tel:[phone] Referring Provider: Ismael Milton, [address], [place], [address] . tel:[phone] Family History Family Member Type Diagnosis Age At Onset Father Problem (finding) Cancer Payers Payer name Insurance type Covered green party ID Giovanny rivera(s) [facility] [id number] Social History Type Description Quantity Date Captured Comments Sex Female Smoking Status No Information Chief Complaint And Reason For Visit No Information Reason For Referral Reason For Referral No Information Plan Of Treatment Date Type Action Status Goal Tobacco cessation counseling completed Goal Lifestyle education regardin g diet completed Goal Tobacco cessation counseling completed Goal Tobacco cessation counseling completed Referral [...] exacerbated her pain. She was seen at [facility] ER on 05/21/23 due to increased pain [...] t No Information Instructions Date Instruction Additional Infor joe - Follow up in clini c with a nurse practitioner or physician purchasing assistant about the results of today's injection Related to Radiculopathy, lumbar region - Can consider gisella cic epidural steroid injection at T6-7 Related to Pain in thoracic spine - Ordered cervical e pidural steroid injection at C3-4. Once approved, Matt will call to schedule Related to Cervicalgia - Keep repeat lumbar epidural steroid injection as scheduled on 07/13/23- Refilled and continued Salem 5-325mg up to 1-2x/day as needed with #45 for 30 day supply for fill on 06/23/23- Continue Flexeril 10mg up to 3x a day as needed, no refill needed- Follow up with Araceli Mayen RECREATION THERAPIST-C in one month or 2 weeks after injection, telehealth ok Related to Radiculopathy, lumbar region Giving encouragement to exercise Related to Body mass index [BMI] 45.0-49.9, adult - Follow up with [facility] provider if high blood pressure persists Related to Elevated blood-pressure reading, w/o diagnosis of htn - Consider sacroilia c joint injection on right side pending pain relief from lumbar epidural steroid injection Related to Sacroiliitis, not elsewhere classified - Ordered MRI of tho racic spine at [facility], they will call you to schedule Related to Pain in thoracic spine - Ordered MRI of cer vical spine at [facility], they will call you to schedule Related to Cervicalgia - Requested medical records from [facility] and [facility]- Ordered repeat lumbar epidural steroid injection, Matt will call you to schedule once insurance approves- Prescribed Salem 5-325mg up to 1-2x/day as needed with [...] Spondylosis w/o myelopathy or radiculopathy, lumbar region Same plan of care as above Relat ed to Other intervertebral disc degeneration, lumbosacral region -Ordered right initi al lumbar medial [...] L5-S1 distribution Related to Radiculopathy, lumbar region Same plan of care as above Relat ed to Other intervertebral disc degeneration, lumbosacral region -Start Flexeril 10mg up to 3x a day for fill today-Ordered a right-sided transforaminal lumbar epidural steroid injection with sedation, scheduling will contact you to make an appointment once approved by insurance.-Follow up with ANDREA in one month, telehealth ok Related to Radiculopathy, lumbar region Lifestyle education regarding di et Related to Body mass index [BMI] 40.0-44.9, adult - Follow up in the [facility] to discuss the results of the injection [...] -Schedule Transforaminal Lumbar Epidural Steroid Injection at V6-D6-Ymugal up as needed The risks and benefits of the procedure will be reviewed with the physician on the day of the procedure. 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, lumbar region - Order MRI of the l umabr spine at [facility]- Order stationary neutral A/P and lateral views x rays at [facility].- Order lateral flexion vs extension x ray of the lumbar spine at [facility].- records from [facility] - records from [facility] - schedule bilateral transforaminal lumbar epidural [...] no changes Related to Pain in leg Same plan of care as statement for above diagnosis, no changes Related to Other muscle spasm Dietary needs education Related to Body mass index [BMI] 45.0-49.9, adult Prescribed activity/ exercise education Related to Body mass index [BMI] 45.0-49.9, adult Assessments Type Assessment Date No Information Patient Care Teams Name Effective Dates (start - stop) Status Members No Information
--- OUTSIDE RECORDS SUMMARY | 2023-08-14 07:08 | XMS_ITS | Clinical Summary ---
Author Organization [facility] Address [place], [place] [address] Care Team Providers Care Recyclable Materials Sorter Name Role Phone Jovana Lee MD Primary [...] 02/01/2021 Overview: 11/22/16 signed .Dawna Deleon DNP, MOLD FORMS BUILDER, VARNISH FILTERER/psychiatry/hc Moderate episode of recurren t major depressive [...] 06/05/2023 Telephone [facility] [address] [place] [address] Lyn Rea MD Questions 05/29/2023 7:45 AM CDT Telemedicine [facility] [address] [place] [address] Lyn Rea MD Telehealth; Medication Management (Things [...] T Respiratory Rate 18 03/22/2015 2:02 PM CAMP RECREATION SPECIALIST Oxygen Saturation 96% 01/08/2020 4:59 PM CAMP RECREATION SPECIALIST Inhaled Oxygen Concentration - - Weight 133.7 kg (294 lb 12.8 oz) 04/15/2019 2:09 PM CDT Height 164 cm (5' 4.57) 03/21/2017 4:35 PM CAMP RECREATION SPECIALIST Body Mass Index 49.72 03/21/2017 4:35 PM CAMP RECREATION SPECIALIST Plan of Treatment Upcoming Encounters Date Type Department Care Team (Late st Contact Info) Description 09/10/2023 8:45 AM CDT Telemedicine [facility] [address] [place] [address] [address] Lyn Rea MD [address] [place] [address] Health Maintenance Due Date Last Done Comments [...] booster 04/07/2032 04/07/2022, 04/05 ([facility]), 03/07/2012, Additional history exists Tdap Completed 04/07/2022, 03/07/2012 Pneumococcal series for age 6-64 Aged Out No longer eligible based on patient's age to complete this topic Procedures Procedure Name Priority Date/Time Associated Diagnosis Comments CLEARING HOUSE CLERK THIN PREP PAP SCREEN IMAGED Routine 06/27/2019 12:00 PM CDT from Last 3 Months or Most Recently Relevant to Health Maintenance Results * CLEARING HOUSE CLERK THIN PREP PAP SCREEN IMAGED (06/27/2019 12:00 PM CDT) Case Report Gynecologic Cytology Report ? Case: [id number] ? Authorizing Provider: ??Jennifer Ramey PA-C ?Collected: ? 06/27/2019 1200 ? Ordering Location: ? [facility] ?Received: ?06/29/2019 0952 ? First Screen: ?Fabian Saleh ? Specimen: ?CLEARING HOUSE CLERK ThinPrep Vial Screening, Cervical/Vaginal ? 07/02/2019 8:08 AM CDT [facility] INTERPRETATION/ RESULT NEGATIVE FOR INTRAEPITHELIAL LESION OR MALIGNANCY (NIL) (none) 07/02/2019 8:08 AM CDT [facility] IMEN ADEQUACY Satisfactory for evaluation No endocervical component seen 07/02/2019 8:08 AM CDT [facility] HPV REQUEST HPV and PAP 07/02/2019 8:08 AM CDT [facility] Date of LMP 05/15/2001 07/02/2019 8:08 AM CDT [facility] Menstrual Status 07/02/2019 8:08 AM CDT [facility] Comment:Nexplanon Additional Information 07/02/2019 8:08 AM CDT [facility] Comment: Interpreted at [facility] - [address] [place] [address], [place] [address] Automated Review Successful 07/02/2019 8:08 AM CDT [facility] Comment:Specimen processed s uccessfully by automated satellite communications engineer device, ThinPrep Imaging System, [employer] ANCILLARY TESTING CLEARING HOUSE CLERK HPV Ordered, Please see separate report 07/02/2019 8:08 AM CDT [facility] Note The pap test [...] and malignant lesions. 07/02/2019 8:08 AM CDT [facility] Other (Cervical/Vagina l) 06/27/2019 12:00 PM CDT 06/29/2019 9:52 AM CDT May Tanvir DUMONT PATHOLOGY/CYTOLOGY [facility] [address] [place] [address] [employer] [address] [place] [address], from Last 3 Months or Most Recently Relevant to Health Maintenance Care Teams Recyclable Materials Sorter Relationship Specialty Start Date End Date Jovana Lee MD [address] [facility] [place] [address] PCP - General Family Practice 09/23/15
--- NOTE | 2023-08-14 08:31 | W.ANESCHARGE ---
Anesthesia Charges Start Date/Time Anesthesia Start Date: 08/14/23 Anesthesia Start Time: 08:06 Stop Date/Time Anesthesia Stop Date: 08/14/23 Anesthesia Stop Time: 08:28
--- NOTE | 2023-08-14 08:45 | W.ANESCHARGE ---
Anesthesia Charges Start Date/Time Anesthesia Start Date: 08/14/23 Anesthesia Start Time: 08:06 Stop Date/Time Anesthesia Stop Date: 08/14/23 Anesthesia Stop Time: 08:28
== END 2023-08-14 07:07 | disposition home or self-care (01) ==
LOC: OP CLINIC 07:06
PROVIDERS: PCP Family Medicine; Visit Provider Internal Medicine
DX: Z12.11 Encounter for screening for malignant neoplasm of colon (principal)
CPT/HCPCS: 00811; 00812; 45378; J2704

== ENCOUNTER 2023-12-04 17:27 | Outpatient (CLI) | payer BC, SELFPAY ==
--- OUTSIDE RECORDS SUMMARY | 2023-12-04 17:30 | XMS_ITS | Clinical Summary ---
Author Organization [facility] Address [place], [place] [address] Care Team Providers Care Assistant Farm Operations Manager Name Role Phone Jovana Lee MD Primary Care Provider + Allergies Active Allergy Reactions Criticality Noted Date Comments Ranitidine Hcl Other - Describe In Comment Field 05/29/2023 Ranitidine Edema Medications Medication Sig Dispensed Refills Start Date End Date Status ALBUTEROL 90 MCG/ACTUATION AEROSOL INHALER inhale 1 puff by inhalation route every 4-6 hours as needed 0 Active omeprazole (PRILOSEC) 20 mg Delayed-Release capsule Take 20 mg by mouth. Active levothyroxine (SYNTHROID) 75 mcg tablet 75 mcg once daily. 08/26/2020 Active albuterol HFA (PRO-AIR; VENTOLIN; PROVENTIL) 90 mcg/actuation inhaler As directed PRN 08/26/2020 Active SUMAtriptan (IMITREX) 50 mg tablet 12/22/2020 Active FLUoxetine (PROZAC) 40 mg capsuleIndications :Recurrent major depressive disorder, in partial remission (HC),Anxiety Take 1 Capsule (40 mg) by mouth once daily. 90 Capsule 1 09/10/2023 Active LORazepam (ATIVAN) 0.5 mg tabIndications:Anx iety Take 1 Tablet (0.5 mg) by mouth at bedtime if needed for Anxiety or Sleep. #10 tabs to last 30 days 10 Tablet 5 09/10/2023 Active Zepbound 2.5 mg/0.5 mL pen Inject 2.5 mg subcutaneous once weekly. 07/27/2023 Active lisinopriL (PRINIVIL; ZESTRIL) 5 mg tablet Take 5 mg by mouth once daily. 07/26/2023 Active methylPREDNISolone (MEDROL DOSEPAK) 4 mg tablet As directed 4 mg. 08/30/2023 Active triamcinolone 0.1 % lotion Apply 1-2 drops to affected ear(s) 1-2 times daily for 7 days* 07/05/2023 Active Active Problems Problem Noted Date Diagnosed Date Controlled substance agreement signed 11/25/2021 Overview (11/25/2021): 11/25/21, Lyn Rea MD, Psychiatry Recurrent major depressive disorder, in partial remission 08/07/2017 ADHD (attention deficit hype ractivity disorder), inattentive type 03/21/2017 Borderline personality disorder 11/22/2016 Anxiety 11/22/2016 ALFONSO (obstructive sleep apnea) 12/07/2015 Alcohol abuse, unspecified 07/03/2006 Overview (07/03/2006): last use 2006 History of substance use disorder 07/03/2006 Overview (07/03/2006): cociane, mushrooms, crack last use 2005 Backache, unspecified 07/03/2006 Paraplegia 07/03/2006 Resolved Problems Problem Noted Date Diagnosed Date Resolved Date Controlled substance agreement signed 02/01/2021 11/25/2021 Overview (02/01/2021): 08/26/20 Lyn Rea MD/psychiatry Controlled substance agreement signed 04/15/2019 02/01/2021 Overview (04/15/2019): Signed 04/15/2019 Dr Lyn Rea Psychiatry Controlled substance agreement signed 12/13/2016 02/01/2021 Overview (12/13/2016): 11/22/16 signed .Dawna Deleon DNP, BOTTOM PRECIPITATOR OPERATOR, GRAVITY PROSPECTING OBSERVER/psychiatry/hc Moderate episode of recurren t major depressive disorder 11/22/2016 08/07/2017 Controlled substance agreement signed 06/21/2016 06/29/2017 Overview (06/21/2016): Signed: 05/27/15 Dr. Eben Cortes MD / psychiatry MAJOR DEPRESSION RECURRENT 09/12/2006 1 Overview (03/25/2014): Previous medications Citalopram (Celexa), Fluoxetine (Prozac), Paroxetin (Paxil), Bupropion (Wellbutrin), Buspirone (Buspar), Venlafaxine (Effexor), Lamotrigine (Limictal), Aripiprazole (Abilify), Quetiapine (Seroquel) Depressive disorder, not elsewhere classified 07/04/19 07 07/20/2011 Encounters Date Type Department Care Team Description 09/10/2023 8:45 AM CDT Telemedicine [facility] [address] [place] [address] Lyn Rea MD Telehealth (patient is in [place]); Follow Up 09/06/2023 Travel from Last 3 Months Immunizations Name [...] Answer Date Recorded PHQ-2 TOTAL SCORE 2 09/10/2023 Social Connections Answer Date Recorded Frequency of [...] T Respiratory Rate 18 03/22/2015 2:02 PM BEEF CATTLE FARMER Oxygen Saturation 96% 01/08/2020 4:59 PM BEEF CATTLE FARMER Inhaled Oxygen Concentration - - Weight 133.7 kg (294 lb 12.8 oz) 04/15/2019 2:09 PM CDT Height 164 cm (5' 4.57) 03/21/2017 4:35 PM BEEF CATTLE FARMER Body Mass Index 49.72 03/21/2017 4:35 PM BEEF CATTLE FARMER Plan of Treatment Health Maintenance Due Date Last Done Comments HIV for age 15-65 1993 Hepatitis C screening for age 18-79 02/05/1996 BMI (ht and wt on same day) for age 18+ 03/21/2018 03/21/2017, 12/07/2015, 09/23/2015, Additional history exists Pap test for age 21-65 06/26/2022 , 06/27/2019, 04/07/2014, Additional history exists Colonoscopy through age 75 2023 Lipids for age 45-75 2023 Mammogram for age 45-75 2023 COVID-19 vaccine series (2023- season) 2023 02/17/2021, 03/10/2020, 02/12/2020 Influenza for age 9-49 10/07/2023 , 11/15/2020, 10/23/2019, Additional history exists Depression screening for age 12+ 09/09/2024 09/10/2023, 05/29/2023, 03/13/2023, Additional history exists Tetanus booster 04/07/2032 04/07/2022, 04/05 (Completed outside of [facility]), 03/07/2012, Additional history exists Tdap Completed 04/07/2022, 03/07/2012 Pneumococcal series for age 6-64 Aged Out No longer eligible based on patient's age to complete this topic Procedures Procedure Name Priority Date/Time Associated Diagnosis Comments VOCATIONAL CASE MANAGER THIN PREP PAP SCREEN IMAGED Routine 06/27/2019 12:00 PM CDT from Last 3 Months or Most Recently Relevant to Health Maintenance Results * VOCATIONAL CASE MANAGER THIN PREP PAP SCREEN IMAGED (06/27/2019 12:00 PM CDT) Case Report Gynecologic Cytology Report ? Case: [id number] ? Authorizing Provider: ??Jennifer Ramey PA-C ?Collected: ? 06/27/2019 1200 ? Ordering Location: ? [facility] ?Received: ?06/29/2019 0952 ? First Screen: ?Fabian Saleh ? Specimen: ?VOCATIONAL CASE MANAGER ThinPrep Vial Screening, Cervical/Vaginal ? 07/02/2019 8:08 AM CDT [facility] INTERPRETATION/ RESULT NEGATIVE FOR INTRAEPITHELIAL LESION OR MALIGNANCY (NIL) (none) 07/02/2019 8:08 AM T [facility] IMEN ADEQUACY Satisfactory for evaluation No endocervical component seen 07/02/2019 8:08 AM CDT [facility] HPV REQUEST HPV and PAP 07/02/2019 8:08 AM T [facility] Date of LMP 05/15/2001 07/02/2019 8:08 AM CDT [facility] Menstrual Status 07/02/2019 8:08 AM CDT [facility] Comment:Nexplanon Additional Information 07/02/2019 8:08 AM CDT [facility] Comment: Interpreted at [facility] - [address] [place] [address], [place] [address] Automated Review Successful 07/02/2019 8:08 AM CDT [facility] Comment:Specimen processed s uccessfully by automated x ray equipment mechanic device, ThinPrep Imaging System, [employer] ANCILLARY TESTING VOCATIONAL CASE MANAGER HPV Ordered, Please see separate report 07/02/2019 8:08 AM CDT [facility] Note The pap test is a [...] and malignant lesions. 07/02/2019 8:08 AM CDT [facility] Other (Cervical/Vagina l) 06/27/2019 12:00 PM CDT 06/29/2019 9:52 AM CDT May Tanvir DUMONT PATHOLOGY/CYTOLOGY [facility] [address] [place] [address], from Last 3 Months or Most Recently Relevant to Health Maintenance Care Teams Assistant Farm Operations Manager Relationship Specialty Start Date End Date [facility]ov[facility] [address] [facility] [address] PCP - General Family Practice 09/23/15
--- OUTSIDE RECORDS SUMMARY | 2023-12-04 17:30 | XMS_ITS | Clinical Summary ---
Author Organization [facility] Address [address] [place] [address] Care Team Providers Care Fur Glazer Name Role Phone Inactive, Administrativel Primary Care Provider Source Comments If you need additional information that is not available on Care Everywhere, please contact our Medical Records Department during business hours (Sunday - Sunday, 8 am - 5 pm) at . During nonbusiness hours, please contact our Trauma and Emergency Center at .[facility] and [facility] Medications * Medications may not be [...] CERVICAL CANCER SCREENING 07/13/2008 07/13/2005 MAMMOGRAM 2018 COLONOSCOPY 2023 DIABETES SCREENING 2023 COVID-19 Vaccine (2023-2 5 season) 2023 Influenza Vaccine (#1) 2023 RSV Vaccine (1 - 1-dose 75+ series) 2053 HPV Vaccine Aged Out No longer eligi ble based on patient's age to complete this topic PNEUMOCOCCAL AGES 0-64 YEARS Aged Out No longer eligible based on patient's age to complete this topic POLIO (IPV) Vaccine Aged Out No longe r eligible based on patient's age to complete this topic Procedures Procedure Name Priority Date/Time Associated Diagnosis Comments PATH ROAD FREIGHT FIRER CYTOLOGY (PAP SMEAR) Routine 07/13/2005 from Last 3 Months or Most Recently Relevant to Health Maintenance Results * PATH ROAD FREIGHT FIRER CYTOLOGY (PAP SMEAR) (07/13/2005) 07/13/2005 07/13/2005 Narrative 07/18/2005 Patient Name: Sue Park Sex: F : 1980 LMP: NEW OB [facility] Rec #: [id number] Room: [facility] Physician: Carla Travis Cytology #: [id number] Specimen Source/Type: CERVICAL-ENDOCERVICAL/LBC Date Collected: 07/13/2005 Date Received: 07/14/2005 Date Reported: 07/18/2005 Specimen Adequacy: SATISFACTORY FOR EVALUATION. General Categorization: EPITHELIAL CELL ABNORMALITY: SEE DESCRIPTIVE DIAGNOSIS. Interpretation/Result: ATYPICAL SQUAMOUS CELLS OF UNDETERMINED SIGNIFICANCE, (ASC-US). Comments: HPV TESTING SENT TO [facility]. Leather Skinner: JANETH Muller(ASCP) Pathologist: Miguel Ángel Contreras M.D.(Electronically [...] Recently Relevant to Health Maintenance Care Teams Fur Glazer Relationship Specialty Start Date End Date Inactive, Administrativel [address] [place] [address] PCP - General 01/08/15
--- OUTSIDE RECORDS SUMMARY | 2023-12-04 17:30 | XMS_ITS | Clinical Summary ---
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 lisinopril (lisinopril 5 mg oral tablet) Status: Ordered Start Date: 08/06/23 1 tabs Oral every day. omeprazole (omeprazole 20 mg oral delayed release capsule) Status: Ordered Start Date: 08/05/20 1 Capsules Oral 2 times a day. tirzepatide (Zepbound 2.5 mg /0.5 mL subcutaneous solution) Status: Ordered Start Date: 08/06/23 2.5 Milligrams SubCutaneous every week. Problem List Condition Confirmation Course Effective Dates Status Health Status Informant At high risk for falls 1 Confirmed Active Familial spastic paraparesis Confirmed Active Spondylolisthesis at L5-S1 level Confirmed Active 1Added via Discern Expert [id number] Rule. 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 Muscle spasticity (Discharge Diagnosis) - 11/26/23 (This Visit) Immunizations Given and Recorded Vaccine Date Status Refusal Reason influenza virus vaccine, inactivated 10/26/23 Rudolph rded influenza virus vaccine, inactivated 11/15/20 Rudolph rded influenza virus vaccine, inactivated 10/23/19 Rudolph rded influenza virus vaccine, inactivated 11/15/18 Rudolph rded influenza virus vaccine, inactivated 12/02/16 Rudolph rded influenza virus vaccine, inactivated 11/15/12 Rudolph rded influenza virus vaccine, inactivated 10/17/11 Rudolph rded influenza virus vaccine, inactivated 11/17/10 Rudolph rded influenza virus vaccine, inactivated 12/15/08 Rudolph rded tetanus/diphth/pertuss (Tdap) adult/adol 04/07/22 Recorded tetanus/diphth/pertuss (Tdap) adult/adol 03/07/12 Recorded SARS-CoV-2 (COVID-19) mRNA-1273 vaccine 02/17/21 R ecorded SARS-CoV-2 (COVID-19) mRNA-1273 vaccine 03/10/20 R ecorded SARS-CoV-2 (COVID-19) mRNA-1273 vaccine 02/12/20 R ecorded tetanus-diphth toxoids (Td) adult/adol 10/02/06 Re corded tetanus-diphth toxoids (Td) adult/adol 02/04/97 Re corded Vital Signs Most recent to oldest [Reference Range]: 1 Pain Present Yes, provider notifi ed (11/26/23 9:46 AM) Able to self report Yes (11/26/23 9:46 AM) able to use numeric rating scale Yes (11/26/23 9:46 AM) Social History Social History Type Response Tobacco Former smoker, quit more than 30 days ago, Exposure to Secondhand Smoke: No. Sex Sex Representation Female (finding) Treatment Plan Future Appointments Appointment Date:02/25/2024 10:00:00 AM Scheduled Provider:Curt Gottlieb MD Location:[facility] - Clinic Appointment Type:PM and R - Botulinum Toxin Injection Patient Care team information Personnel Name: Jovana Lee MD Address: [address]
--- OUTSIDE RECORDS SUMMARY | 2023-12-04 17:30 | XMS_ITS | Continuity of Care Document ---
Author Organization NEHAL Gutierrez Address [address] [facility] [place] [address] Phone Care Team Providers Care Software Project Lead Name Role Phone Lorrie CARRASCO Ann Unavailable Unavailable Allergies, Adverse Reactions, Alerts Substance Reaction Status Criticality RANITIDINE HCL Active No Informatio n Medications Medication Instructions Dosage Effective Dates (start - stop) Status Comments Zepbound 5 mg/0.5 mL subcutaneous pen injector inject (5MG) by subcutaneous route every week 5 MG - Active Prozac 40 mg capsule take 1 capsule by oral route every day in the morning 40 MG - Active TYLENOL (unknown strength) as needed Not Available - Active VITAMIN D3 (unknown strength) Not Available - Active LEVOTHYROXINE SODIUM (unknown strength) Not Available - Active OMEPRAZOLE (unknown strength) Not Available - Active Procedures Procedure Date Est Pt Eval Telehealth Inject, Spine, Cerv/Thor, Epi/subarc w/i mg Guid Inject, Spine, Cerv/Thor, Epi/subarc w/i mg Guid ANES DRG/ASPIR CRV/THRC Est Pt Eval Telehealth Inj Anes Epidur; Lumb/sac 1 Le 24 Inj Anes Epidur; Lumb/sac 1 Le 24 ANES DRG/ASPIR LMBR/SAC Est Pt Eval Telehealth Sacroiliac Joint Injection CC Control For Rem/Void Of Mutually Excl usive Proc Change Control for Modifier(s) Inject SI Joint Arthrography Verified No Separate Anesthesia Est Pt Eval Telehealth Inject, Spine, Lumb/sacr, Epi/subarc w/ img Guid Inject, Spine, Lumb/sacr, Epi/subarc w/ img Guid Verified No Separate Anesthesia Est Pt Eval Telehealth Est Pt Eval Moderate Toxicology Test Group B RF Lumbar/Sacral Single Level 4 RF Lumbar/Sacral Addt'l Level 4 RF Lumbar/Sacral Addt'l Level CC Control For Rem/Void Of Mutually Excl usive Proc Change Control for Modifier(s) Change Control for Procedure(s): 2023 RF Lumbar/Sacral Single Level 4 RF Lumbar/Sacral Addtl Level RF Lumbar/Sacral Addtl Level Verified No Separate Anesthesia Inj Anes Facet Jt; Lumb/sac-1st Level Ja [...] Yes / No Effective Date File Name Intubation Not Answered N/A N/A Antibiotics Not Answered N/A N/A IV Fluid Support Not Answered N/A N/A Tube Feed Not Answered N/A N/A Other Directive No N/A N/A WARNING:The information contained in this section is historical and is provided for information only and does not constitute a legal document or any assurance that the information is still accurate. Please verify the information with the courtney of the legal document before using it for clinical purposes. Encounters Encounter Description Practice Location Reason(s) For Visit Diagnoses Date Provider Providers Copied on Encounter Est Pt Eval Telehealth NEHAL Gutierrez, [address], [place], [place], [address], [place] tel:[phone] [facility] neck pain (chief complaint) lower back pain (chief complaint) Sacroiliitis, not elsewhere classifiedRadi culopathy, lumbar regionCervical giaPain in thoracic spineBody mass index (BMI) 40.0-44.9, adult Oct- 4 Ketola Rio Blanco. [address] [facility] [address], [place], [place], [address], [place]. tel:[phone] Referring Provider: Curt Walter, [address] [place] [address], [place], [address]. tel:[phone] NEHAL Gutierrez, [address], [place], [place], [address], [place] tel:[phone] [facility] No Information 4 Marcia Hathaway. [address], [place], [address], [place]. tel:[phone] Referring Provider: Rivas Mosnon, [address], [place], [address]. tel:[phone] [facility], [address], [place], [address], [place] tel:[phone] [facility] neck pain (chief complaint) Radiculopathy, cervical regionRadiculo jorge, cervical region 4 [facility]. [address], [place], [place], [address], [place]. tel:[phone] Referring Provider: Rivas Monson, [address], [place], [address]. tel:[phone] Matt [facility], [address], [place], [place], [address], [place] tel:[phone] [facility] No Information 4 Prasad Reyes. [address], [place], [address], [place]. tel:[phone] Referring Provider: Rivas Monson, [address], [place], [address]. tel:[phone] Est Pt Eval Telehealth [facility], [address], [place], [place], [address], [place] tel:[phone] [facility] lower back pain (chief complaint) neck pain (chief complaint) Body mass index (BMI) 40.0-44.9, adultSacroilii tis, not elsewhere classifiedRadi culopathy, lumbar regionCervical giaPain in thoracic spine 4 Ketola Ann. [address], [address], [place], [place], [address], [place]. tel:[phone] Referring Provider: Curt Walter, [address] [facility], [place], [address]. tel:[phone] [facility], [address], [place], [address], [place] tel:[phone] [facility] lower back pain (chief complaint) Radiculopathy, lumbar regionRadiculo jorge, lumbar region Sep-2 4 [facility]. [address], [place], [place], [address], [place]. tel:[phone] Referring Provider: Emmanuel Stoner, [address], [place], [address]. tel:[phone] [facility], [address], [place], [place], [address], [place] tel:[phone] [facility] No Information Sep-2 4 Herbie Benitez. [address], [place], [address], [place]. tel:[phone] Referring Provider: Emmanuel Stoner, [address], [place], [address]. tel:[phone] Matt [facility], [address], [place], [place], [address], [place] tel:[phone] [facility] No Information Sep-2 4 Madelyn Perez. [address], [address], [place]. tel:[phone] Referring Provider: Emmanuel Stoner [address], [place], [address]. tel:[phone] Est Pt Eval Telehealth Matt [facility], [address], [place], [place], [address], [place] tel:[phone] [facility] upper back pain (chief complaint) Radiculopathy, lumbar regionCervical giaPain in thoracic spineSacroilii tis, not elsewhere classified 4 Tiarra Charles. [address], [address], [place], [address], [place]. tel:[phone] Referring Provider: Curt Walter, [facility] [address] [facility], [place], [address]. tel:[phone] [facility], [address], [place], [address], [place] tel:[phone] [facility] lower back pain (chief complaint) Sacroiliitis, not elsewhere classifiedSacr oiliitis, not elsewhere classified 4 [facility]. [address], [place], [place], [address], [place]. tel:[phone] Referring Provider: Emmanuel Stoner, [address], [place], [address]. tel:[phone] Matt [facility], [address], [place], [place], [address], [place] tel:[phone] [facility] No Information 4 Herbie Benitez. [address], [place], [address], [place]. tel:[phone] Referring Provider: Emmanuel Stoner, [address], [place], [address]. tel:[phone] Matt [facility], [address], [place], [place], [address], [place] tel:[phone] [facility] No Information 4 Herbie Benitez. [address], [place], [address], [place]. tel:[phone] Referring Provider: Emmanuel Stoner, [address], [place], [address]. tel:[phone] Est Pt Eval Telehealth Matt, [facility], [address], [place], [place], [address], [place] tel:[phone] [facility] mid back pain (chief complaint) Radiculopathy, lumbar regionCervical giaPain in thoracic spineSacroilii tis, not elsewhere classifiedBody mass index (BMI) 45.0-49.9, adult 4 Eliazar Arriagaelle. [address], [address], [place], [address], [place]. tel:[phone] Referring Provider: Curt Walter, [facility] [place], [address]. tel:[phone] [facility], [address], [place], [address], [place] tel:[phone] [facility] lower back pain (chief complaint) Radiculopathy, lumbar region 4 [facility]. [address], [place], [place], [address], [place]. tel:[phone] Referring Provider: Geraldo Reese, [address], [place], [address] . tel:[phone] Matt [facility], [address], [place], [place], [address], [place] tel:[phone] [facility] [place] No Information 4 Hugh Chow. [address] , [address], [place], [place], [address], [place]. tel:[phone] Referring Provider: Geraldo Reese, [address], [place], [address] . tel:[phone] Matt, [facility], [address], [place], [place], [address], [place] tel:[phone] [facility] No Information 4 Hugh Chow. [address] , [address], [place], [place], [address], [place]. tel:[phone] Referring Provider: Geraldo Reese, [address] [facility] [address], [place], [address] . tel:[phone] Est Pt Eval Telehealth [facility], [facility], [address], [place], [place], [address], [place] tel:[phone] [facility] body pain (chief complaint) Body mass index (BMI) 45.0-49.9, adultRadiculop athy, lumbar regionCervical giaPain in thoracic spine 4 Tiarra Araceli. [address], [place], [address], [place]. tel:[phone] Referring Provider: Curt Walter, [address] [facility], [place], [address]. tel:[phone] Est Pt Eval Moderate Matt, [facility], [address], [place], [place], [address], [place] tel:[phone] [facility] back pain (chief complaint) right shoulder pain (chief complaint) Radiculopathy, lumbar regionSacroili itis, not elsewhere classifiedCerv icalgiaPain in thoracic spineBody mass index (BMI) 45.0-49.9, adultElevated blood-pressure reading, w/o diagnosis of htn 4 She Qialexia. [address], [address], [place], [address], [place]. tel:[phone] Referring Provider: Curt Walter, [address] [place], [address]. tel:[phone] Matt [facility], [address], [place], [place], [address], [place] tel:[phone] Matt [facility] No Information 4 She Araceli. [address], [place], [address], [place]. tel:[phone] Referring Provider: Curt Walter, [address] [place], [address]. tel:[phone] [facility] [place], [address], [place], [address], [place] tel:[phone] [facility] back pain (chief complaint) Spondylosis w/o myelopathy or radiculopathy, lumbar regionSpondylo sis w/o myelopathy or radiculopathy, lumbar region Apr- 4 [facility]. [address], [place], [place], [address], [place]. tel:[phone] Referring Provider: Rivas Monson, [address], [facility] [place], [address]. tel:[phone] Matt [facility], [address], [place], [place], [address], [place] tel:[phone] [facility] No Information 4 Marcia Hathaway. [address], [place], [address], [place]. tel:[phone] Referring Provider: Rivas Monson, [address], [place], [address]. tel:[phone] [facility], [address], [place], [place], [address], [place] tel:[phone] [facility] No Information 4 Marcia Hathaway. [address], [place], [address], [place]. tel:[phone] Referring Provider: Rivas Monson, [address], [place], [address]. tel:[phone] [facility], [address], [place], [place], [address], [place] tel:[phone] [facility] No Information 4 Marcia Hathaway. [address], [place], [address], [place]. tel:[phone] Referring Provider: Rivas Monson, [address], [place], [address]. tel:[phone] [facility], [address], [place], [address], [place] tel:[phone] [facility] Spondylosis w/o myelopathy or radiculopathy, lumbar regionSpondylo sis w/o myelopathy or radiculopathy, lumbar region 4 [facility]. [address], [place], [place], [address], [place]. tel:[phone] Referring Provider: Rivas Monson, [address], [place], [address]. tel:[phone] Matt [facility], [address], [place], [place], [address], [place] tel:[phone] [facility] No Information 4 Marcia Hathaway. [address], [place], [address], [place]. tel:[phone] Referring Provider: Rivas Monson, [address], [place], [address]. tel:[phone] Est Pt Eval Telehealth Matt [facility], [address], [place], [place], [address], [place] tel:[phone] [facility] back pain (chief complaint) Radiculopathy, lumbar regionBody mass index (BMI) 40.0-44.9, adult 3 Steele Audrey. [address] [place], [address], [place]. tel:[phone] Referring Provider: Curt Walter, [facility] [place], [address]. tel:[phone] [facility], [address], [place], [address], [place] tel:[phone] [facility] Spondylosis w/o myelopathy or radiculopathy, lumbar regionSpondylo sis w/o myelopathy or radiculopathy, lumbar region 3 [facility]. [address], [place], [place], [address], [place]. tel:[phone] Referring Provider: Rivas Monson, [address], [place], [address]. tel:[phone] [facility], [address], [place], [place], [address], [place] tel:[phone] [facility] No Information 3 Marcia Hathaway. [address], [place], [address], [place]. tel:[phone] Referring Provider: Rivas Monson, [address] [facility] [address], [place], [address]. tel:[phone] [facility], [address], [place], [place], [address], [place] tel:[phone] [facility] No Information 3 Marcia Hathaway. [address] [facility] [address], [place], [address], [place]. tel:[phone] Referring Provider: Rivas Monson, [address], [place], [address]. tel:[phone] Est Pt Eval Telehealth [facility], [address], [place], [place], [address], [place] tel:[phone] [facility] back pain (chief complaint) Body mass index (BMI) 40.0-44.9, adultRadiculop athy, lumbar regionOther intervertebral disc degeneration, lumbosacral region Sep- 3 Steele Audrey. [address] [place], [address], [place]. tel:[phone] Referring Provider: Curt Walter, [address] [facility], [place], [address]. tel:[phone] [facility], [address] [facility] [address], [place], [place], [address], [place] tel:[phone] [facility] No Information Sep- 3 Foster Emmanuel. [address], [place], [address], [place]. tel:[phone] Referring Provider: Emmanuel Stoner, [address], [place], [address]. tel:[phone] [facility] [place], [address], [place], [address], [place] tel:[phone] [facility] back pain (chief complaint) Radiculopathy, lumbar regionRadiculo jorge, lumbar region Sep-0 3 [facility]. [address], [place], [place], [address], [place]. tel:[phone] Referring Provider: Emmanuel Stoner, [address], [place], [address]. tel:[phone] Matt, [facility], [address], [place], [place], [address], [place] tel:[phone] [facility] No Information Sep-0 3 [facility]. [address], [place], [address], [place]. tel:[phone] Referring Provider: Curt Walter, [address] [place], [address]. tel:[phone] Est Pt Eval 25 Min [facility], [address], [place], [place], [address], [place] tel:[phone] [facility] back pain (chief complaint) Radiculopathy, lumbar regionOther intervertebral disc degeneration, lumbosacral regionBody mass index (BMI) 40.0-44.9, adult Gage-0 3 Steele Audrey. [address] [place], [address], [place]. tel:[phone] Referring Provider: Curt Walter, [address] [facility], [place], [address]. tel:[phone] [facility], [address], [place], [address], [place] tel:[phone] [facility] back pain (chief complaint) Radiculopathy, lumbar regionRadiculo jorge, lumbar region 3 [facility]. [address], [place], [place], [address], [place]. tel:[phone] Referring Provider: Vania Dobson , [address], [place], [address]. tel:[phone] NEHAL Gutierrez, [address], [place], [place], [address], [place] tel:[phone] [facility] No Information 3 Olya Caro. [address], [place], [address], [place]. tel:[phone] Referring Provider: Vania Dobson , [address], [place], [address]. tel:[phone] NEHAL Gutierrez, [address], [place], [place], [address], [place] tel:[phone] [facility] No Information 3 Olya Caro. [address], [place], [address], [place]. tel:[phone] Referring Provider: Vania Dobson , [address], [place], [address]. tel:[phone] Est Pt Eval 25 Min Telehealth Matt [facility], [address], [place], [place], [address], [place] tel:[phone] [facility] back pain (chief complaint) Intervertebral disc disorders w radiculopathy, lumbar regionBody mass index (BMI) 40.0-44.9, adult 3 Mellesmoen Carrie. [address] , [address], [place], [address], [place]. tel:[phone] Referring Provider: Curt Walter, [facility] [place], [address]. tel:[phone] Est Pt Eval 25 Min [facility], [facility], [address] [facility] [address], [place], [place], [address], [place] tel:[phone] [facility] back pain (chief complaint) Intervertebral disc disorders w radiculopathy, lumbar regionBody mass index (BMI) 40.0-44.9, adult 3 Mellesmoen Carrie. [address] [facility], [facility] [address], [place], [address], [place]. tel:[phone] Referring Provider: Curt Walter, [address] [place], [address]. tel:[phone] [facility], [address], [place], [place], [address], [place] tel:[phone] [facility] No Information 3 Mellesmoen Carrie. [address], [place], [address], [place]. tel:[phone] Referring Provider: Curt Walter, [address] [place], [address]. tel:[phone] Est Pt Eval 25 Min Telehealth [facility], [facility], [address], [place], [place], [address], [place] tel:[phone] [facility] back pain (chief complaint) Intervertebral disc disorders w radiculopathy, lumbar region 1 Enrico Childress. [address], [place], [address], [place]. tel:[phone] Referring Provider: Mary Deluca MD, [address] [place] [address], [place], [address]. tel:[phone] [facility], [facility], [address], [place], [place], [address], [place] tel:[phone] [facility] No Information 1 Den Donaldson. [address], [place], [address], [place]. tel:[phone] Referring Provider: Mary Deluca MD, [address] [place], [address]. tel:[phone] Psychiatric Diagnostic Evaluation Telehealth [facility], [facility], [address], [place], [place], [address], [place] tel:[phone] [facility] Pain disorder with related psychological factors 1 Den Donaldson. [address], [place], [address], [place]. tel:[phone] Referring Provider: Mary Deluca MD, [address] [place], [address]. tel:[phone] Est Pt Eval 25 Min [facility], [facility], [address], [place], [place], [address], [place] tel:[phone] [facility] Leg Pain (chief complaint) back pain (chief complaint) Low back painPain in legOther muscle spasmBody mass index (BMI) 45.0-49.9, adult Aug- 1 Chuckie Wheeler. [address] [facility] [address], [place], [place], [address], [place]. tel:[phone] Referring Provider: Mary Deluca MD, [address] [facility], [place], [address]. tel:[phone] Est Pt Eval 15 Min [facility], [facility], [address] [facility] [address], [place], [place], [address], [place] tel:[phone] [facility] back pain (chief complaint) Osseous and sublux stenos of intvrt foramin of lumbar regionSpondyls w/o myelopathy or radiculopathy, lumbosacr region May- 8 Dinega Gelane. [address] [facility] [address], [place], [address], [place]. tel:[phone] Referring Provider: Mary Deluca MD, [address] [facility], [place], [address]. tel:[phone] [facility], [address] [facility] [facility] [address], [place], [address], [place] tel:[phone] [facility] back pain (chief complaint) Other intervertebral disc degeneration, lumbosacral regionInterver tebral disc disorders w radiculopathy, lumbar regionInterver tebral disc disorders w radiculopathy, lumbar regionOther intervertebral disc degeneration, lumbosacral region Apr- 8 [facility]. [address], [place], [place], [id number], [place]. tel:[phone] Referring Provider: Ismael Milton, [address], [place], [address] . tel:[phone] [facility], [address], [place], [place], [address], [place] tel:[phone] [facility] No Information 8 Chuckie Guevara. [address], [place], [place], [address], [place]. tel:[phone] Referring Provider: Ismael Milton, [address], [place], [address] . tel:[phone] [facility], [address], [place], [address], [place] tel:[phone] [facility] back pain (chief complaint) Other intervertebral disc degeneration, lumbosacral regionInterver tebral disc disorders w radiculopathy, lumbar regionInterver tebral disc disorders w radiculopathy, lumbar regionOther intervertebral disc degeneration, lumbosacral region [facility]. [address], [place], [place], [address], [place]. tel:[phone] Referring Provider: Ismael Milton, [address], [place], [address] . tel:[phone] New Pt Eval 45 Min [facility], [facility], [address], [place], [place], [address], [place] tel:[phone] [facility] back pain (chief complaint) Spondylosis w/o myelopathy or radiculopathy, lumbosacral regionOsseous and sublux stenos of intvrt foramin of lumbar region No Information Referring Provider: Mary Deluca MD, [address], [place], [address]. tel:[phone] [facility], [address], [place], [place], [address], [place] tel:[phone] [facility] No Information 8 Chuckie Guevara. [address], [place], [place], [address], [place]. tel:[phone] Referring Provider: Ismael Milton, [address], [place], [address] . tel:[phone] Family History Family Member Type Diagnosis Age At Onset Father Problem (finding) Cancer Payers Payer name Insurance type Covered green party ID Giovanny rivera(s) Blue Plus [facility] [id number] Social History Type Description Quantity Date Captured Comments Alcohol Use Details No Caffeine Use Details soda Tobacco Use Status Moderate cigarette smoker (10-19 cigs/day) Smoking Status Former smoker Non-Smoking Tobacco Use Details : No Details Available : No Details Available Sex Female Vital Signs Date / Time: Height Weight BMI Pulse Rate Blood Pressure Temperature Respiratory Rate Body Surface Area Head Circumference Head Circ. Percentile Wt./Korey. Percentile BMI percentile Pulse Ox Inhaled Ox 11:03 AM 64.00 in 114.305 kg (252.00 lbs) 43.2 6 kg/m eter (2) 2.27 meter(2) Chief Complaint And Reason For Visit From encounter dated '11/26/2023 11:10'. neck pain (chief complaint). Description: The pain is located in the posterior neck on both sides. lower back pain (chief complaint). Description: The pain is located in the low back on both sides. Pain intensity is currently 6/10. is 10/10 at its worst, 5/10 at its best,The pain has been improving . Reason For Referral Reason For Referral No Information Plan Of Treatment Date Type Action Status Goal Tobacco cessation counseling completed Goal Lifestyle education regardin g diet completed Goal Lifestyle education regardin g diet completed Goal Tobacco cessation counseling completed Goal Lifestyle education regardin g diet completed Goal Tobacco cessation counseling completed Goal Tobacco cessation counseling completed Goal Lifestyle education regardin g diet completed Goal Tobacco cessation counseling completed Goal Tobacco cessation counseling completed Referral Ordered: Physical Therapy (related to Sacroiliitis, not elsewhere classified) ordered Referral Referred To: Physical Therapy [address] [place] [address], [phone] Ordered: Referrals: Physical Therapy. Location: [facility]. Evaluate and treat ordered Referral Ordered: Physical Therapy (related to Intervertebral [...] ordered Referral Ordered: Referrals: Behavioral Health ordered Appointment [facility] BOOKED Appointment [facility] BOOKED History Of Present Illness Encounter Date Complaint History Of Prese nt Illness neck pain The pain is loca travon in the posterior neck on both sides. lower back pain The pain is loca travon in the low back on both sides. Pain intensity is currently 6/10. is 10/10 at its worst, 5/10 at its best,The pain has been improving . Studies Reviewed MRI - Cervical Spine W/O [...] collapse, acute fracture, or destructive osseous lesion. neck pain The pain is loca travon in the posterior neck on both sides. Pain intensity is currently 8/10. lower back pain Pain intensity i s currently 5/10. is 10/10 at its worst, 5/10 at its best,The pain has been fluctuating . The pain is described as aching and shooting. neck pain The pain is loca travon in the posterior neck on both sides. The pain has been worsening . The pain is of variable intensity. The pain is described as aching. The following activities make the pain worse: physical activity. lower back pain The pain is loca travon in the right low back. The pain radiates into the right toes.The lower back pain radiates into the right leg. Pain intensity is currently 5/10. upper back pain The pain is loca travon in the upper back on both sides. The pain radiates into the both hips.The upper back pain radiates into the mid back on both sides. The pain pattern also includes the lower back and neck. Pain intensity is currently 5/10.The pain is described as sharp, stabbing and throbbing. The following activities make the pain worse: movement and standing. The following activities make the pain better: lying down. lower back pain The pain is loca travon in the right low back. The lower back pain radiates into the right hip. mid back pain The pain is loca travon in the mid back on both sides. The mid back pain radiates into the lower back. The pain pattern also includes the R hip and neck. Pain intensity is currently 7/10. is 10/10 at its worst,The pain is described as aching, burning, dull, sharp and tingly. The following activities make the pain worse: movement. The following activities make the pain better: Smoking marijuana. lower back pain The pain is loca [...] exacerbated her pain. She was seen at [facility] ER on 05/21/23 due to increased [...] Information Instructions Date Instruction Additional Infor joe Procedures:- Can con home appraiser thoracic epidural steroid injection at T6-7 Related to Pain in thoracic spine Procedures:- Keep RI GHT SI joint injection 12/12/23*If you would like sedation, please do not eat or drink for 8 hours prior to procedure. This includes hard candy, mints, and gum. Please bring a goat driver as well.*If you experience 80% or more short-term pain relief from 2 sacroiliac joint injections, consider sacroiliac fusionFollow up:- Ordered physical therapy to [facility] Related to Sacroiliitis, not elsewhere classified Procedures:- Continu e to monitor relief from cervical epidural steroid injection Related to Cervicalgia Medications:-OK to u se over the counter 4%Lidocaine cream alternated with 1%Voltaren cream every 4 hours along with icing and heating pad for additional pain reliefFollow up:- Follow up with Ann Andrew CNP via telehealth in 1-2 weeks after injection, telehealth okay Related to Radiculopathy, lumbar region Lifestyle education regarding di et Related to Body mass index [BMI] 40.0-44.9, adult Lifestyle education regarding di et Related to Body mass index [BMI] 40.0-44.9, adult - Follow up in the c linic- Schedule MRI of the cervical spine w/ Rayus Related to Radiculopathy, cervical region Procedures:- Can con home appraiser thoracic epidural steroid injection at T6-7 Related to Pain in thoracic spine Medications:-OK to u se over the counter 4%Lidocaine cream alternated with 1%Voltaren cream every 4 hours along with icing and heating pad for additional pain reliefFollow up:- Follow up with Ann Andrew CNP via telehealth as scheduled on 11/26/23 Related to Radiculopathy, lumbar region Procedures:- Keep ce rvical epidural steroid injection as scheduled on 11/14/2023 Related to Cervicalgia Procedures:- Ordered repeat RIGHT SI joint injection, Matt will call to schedule once approved*If you have not heard back in a week, you may reach Matt at [phone]*If you would like sedation, please do not eat or drink for 8 hours prior to procedure. This includes hard candy, mints, and gum. Please bring a goat driver as well.*If you experience 80% or more short-term pain relief from 2 sacroiliac joint injections, consider sacroiliac fusion Related to Sacroiliitis, not elsewhere classified Lifestyle education regarding di et Related to Body mass index [BMI] 40.0-44.9, adult - Follow up in clini c in 2-3 weeks to discuss results from today's injection Related to Radiculopathy, lumbar region - Continue to monito r relief from sacroiliac joint injection on right side Related to Sacroiliitis, not elsewhere classified - Can consider thora cic epidural steroid injection at T6-7 Related to Pain in thoracic spine - Keep transforamina l lumbar epidural steroid injection as scheduled on 10/31/23-OK to use over the counter 4%Lidocaine cream alternated with 1%Voltaren cream every 4 hours along with icing and heating pad for additional pain relief- Follow up with Christelle Perea PA-C or Araceli Mayen CNP 2 weeks after injection, telehealth okay Related to Radiculopathy, lumbar region - Schedule cervical epidural steroid injection as needed Related to Cervicalgia - Follow up in clini c to discuss results from today's injection Related to Sacroiliitis, not elsewhere classified - Can consider thora cic epidural steroid injection at T6-7 Related to Pain in thoracic spine - Keep injection on 09/24/23, currently scheduled as transforaminal lumbar epidural steroid injection, but can switch to cervical epidural steroid injection as needed. Related to Cervicalgia - Ordered sacroiliac joint injection on right side to schedule pending pain relief from lumbar epidural steroid injection*Matt will call to schedule once insurance approves, if you don't hear back in a few days call [phone] Related to Sacroiliitis, not elsewhere classified - Nice to talk with you!- Prescribed Medrol dose pack, for fill 08/30/23- Ok to discontinue Flexeril 10mg - Follow up with Christelle Perea PA-C or Araceli Mayen BUS SYSTEM OPERATOR as needed, telehealth okay Related to Radiculopathy, lumbar region - Follow up in clini c with a nurse practitioner or physician classroom assistant about the results of today's injection Related to Radiculopathy, lumbar region - Can consider thora cic epidural steroid injection at T6-7 Related to Pain in thoracic spine - Ordered cervical e pidural steroid injection at C3-4. Once approved, Matt will call to schedule Related to Cervicalgia - Keep repeat lumbar epidural steroid injection as scheduled on 07/13/23- Refilled and continued Shawnee 5-325mg up to 1-2x/day as needed with #45 for 30 day supply for fill on 06/23/23- Continue Flexeril 10mg up to 3x a day as needed, no refill needed- Follow up with Araceli Mayen MICROBIOLOGY SUPERVISOR-C in one month or 2 weeks after injection, telehealth ok Related to Radiculopathy, lumbar region Giving encouragement to exercise Related to Body mass index [BMI] 45.0-49.9, adult - Follow up with [facility] provider if high blood pressure persists Related [...] to Cervicalgia - Requested medical records from [facility] and [facility]- Ordered repeat lumbar epidural steroid injection, Matt will call you to schedule once insurance approves- Prescribed Shawnee 5-325mg up to 1-2x/day as needed with [...] 40.0-44.9, adult - Follow up in the [facility] to discuss the results of the injection [...] -Schedule Transforaminal Lumbar Epidural Steroid Injection at [id number] up as needed The risks and benefits of the procedure will be reviewed with the physician on the day of the procedure. 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, lumbar region - Order MRI of the l umabr spine at [facility]- Order stationary neutral A/P and lateral views x rays at [facility].- Order lateral flexion vs extension x ray of the lumbar spine at [facility].- records from [facility] - records from [facility] - schedule bilateral transforaminal lumbar epidural steroid [...] no changes Related to Pain in leg Dietary needs education Related to Body mass index [BMI] 45.0-49.9, adult Prescribed activity/ exercise education Related to Body mass index [BMI] 45.0-49.9, adult Assessments Type Assessment Date assessment Sacroiliitis, not elsewhere clas sified impression Patient has persiste nt pain the low back and right buttock. Previous physical exam showed 4/4 positive SI provocation exams predominantly on the right side indicating her low back pain could be SI mediated. Positive for Gaenslen's, DAPHNIE's, Compression, and distraction.On 09/24/23 patient received R SIJI with initially 80% relief. She is currently at 50% as of 11/12/23. She notes improvement in her hip pain. She is scheduled for RIGHT SIJI on 12/12/23. May consider SIJ fusion. Patient reports she was recommended PT in [place]. This was ordered to [facility] as requested assessment Radiculopathy, lumbar region Nov impression Patient reports pers istent low back pain that radiates to her legs.On 10/31/23 patient received TF LESI with <50% relief. Encouraged patient to continue to monitor relief from this injection.She had an LRFA on 04/08/23 with some relief. She reports not really knowing how much relief she got d/t fall she had shortly after the procedure. She notes she has about 2 falls/ month. 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 She reports migraines and hand pain.On 11/14/23 patient received TSERING at C5/6 with 80% relief assessment Pain in thoracic spine impression Thoracic MRI complet ed at [facility] on 06/07/23. Findings of disc protrusion of T2-3, T5-6 and T6-7. Can consider TESI in the future assessment Body mass index (BMI) 40.0-44.9, adult Mental Status Date Cognitive Assessment Orientation - Guthrie ed to time, place, person, situation. Patient Care Teams Name Effective Dates (start - stop) Status Members No Information
--- NOTE | 2023-12-04 17:40 | CRLHL7_ITS ---
For Patients: As a result of the Century Cures Act, medical imaging exams and procedure reports are released immediately into your electronic medical record. You may view this report before your referring provider. If you have questions, please contact your health care provider. BILATERAL SCREENING MAMMOGRAM WITH COMPUTER-AIDED DETECTION AND TOMOSYNTHESIS TECHNIQUE: CC and MLO views were obtained. These mammographic images have been obtained using full-field digital technique. These mammographic images were interpreted with the benefit of computer-aided detection. Breast Tomosynthesis was used in this interpretation. COMPARISON FILM: 06/22/22, 01/13/21, 08/20/19. FINDINGS: There are scattered areas of fibroglandular density IMPRESSION: There is no radiographic evidence for malignancy. ASSESSMENT: BI-RADS Category 1: Negative RECOMMENDATION: Routine screening mammogram in 1 year. A lay language report of this examination will be provided to the patient. Ismael Stout M.D. Diagnostic Radiologist [email or web address] [place]/Dictated by: Ismael Stout MD @ 12/05/2023 9:21:00 AM (Electronically Signed)
== END 2023-12-04 17:28 | disposition home or self-care (01) ==
LOC: MAMMO 17:28
PROVIDERS: PCP Family Medicine; Visit Provider Family Medicine
DX: Z12.31 Encounter for screening mammogram for malignant neoplasm of breast (principal)
CPT/HCPCS: 77063; 77067

== ENCOUNTER 2023-12-19 15:33 | Outpatient (CLI) | payer BC, SELFPAY ==
--- OUTSIDE RECORDS SUMMARY | 2023-12-20 14:31 | XMS_ITS | Clinical Summary ---
Author Organization [facility] Address [place], [place] [address] Care Team Providers Care Developmental Mathematics Instructor Name Role Phone Jovana Lee MD Primary [...] Overview (12/13/2016): 11/22/16 signed .Dawna Deleon DNP, SOCIAL SCIENCES LECTURER, BREEDER SERVICE TECHNICIAN/psychiatry/hc Moderate episode of recurren t major depressive disorder 11/22/2016 08/07/2017 Controlled substance agreement signed 06/21/2016 06/29/2017 Overview (06/21/2016): Signed: 05/27/15 Dr. Eben Cortes MD / psychiatry MAJOR DEPRESSION RECURRENT 09/12/2006 1 Overview (03/25/2014): Previous medications Citalopram (Celexa), Fluoxetine (Prozac), Paroxetin (Paxil), Bupropion (Wellbutrin), Buspirone (Buspar), Venlafaxine (Effexor), Lamotrigine (Limictal), Aripiprazole (Abilify), Quetiapine (Seroquel) Depressive disorder, not elsewhere classified 07/04/19 07 07/20/2011 Immunizations Name Administration Dates Next Due Influenza [...] T Respiratory Rate 18 03/22/2015 2:02 PM ADMINISTRATIVE ACCOUNTANT Oxygen Saturation 96% 01/08/2020 4:59 PM ADMINISTRATIVE ACCOUNTANT Inhaled Oxygen Concentration - - Weight 133.7 kg (294 lb 12.8 oz) 04/15/2019 2:09 PM CDT Height 164 cm (5' 4.57) 03/21/2017 4:35 PM ADMINISTRATIVE ACCOUNTANT Body Mass Index 49.72 03/21/2017 4:35 PM ADMINISTRATIVE ACCOUNTANT Plan of Treatment Health Maintenance Due Date Last Done Comments HIV for age 15-65 1993 Hepatitis C screening for age 18-79 02/05/1996 BMI (ht and wt on same day) for age 18+ 03/21/2018 03/21/2017, 12/07/2015, 09/23/2015, Additional history exists Pap test for age 21-65 06/26/2022 0, 06/27/2019, 04/07/2014, Additional history exists Colonoscopy through age 75 2023 Lipids for age 45-75 2023 Mammogram for age 45-75 2023 COVID-19 vaccine series ( season) 2023 02/17/2021, 03/10/2020, 02/12/2020 Influenza for age 9-49 10/07/2023 , 11/15/2020, 10/23/2019, Additional history exists Depression screening for age 12+ 09/09/2024 09/10/2023, 05/29/2023, 03/13/2023, Additional history exists Tetanus booster 04/07/2032 04/07/2022, 04/05 ([facility] 03/07/2012, Additional history exists Tdap Completed 04/07/2022, 03/07/2012 Pneumococcal series for age 6-64 Aged Out No longer eligible based on patient's age to complete this topic Procedures Procedure Name Priority Date/Time Associated Diagnosis Comments ACID BATH MIXER THIN PREP PAP SCREEN IMAGED Routine 06/27/2019 12:00 PM CDT from Last 3 Months or Most Recently Relevant to Health Maintenance Results * ACID BATH MIXER THIN PREP PAP SCREEN IMAGED (06/27/2019 12:00 PM CDT) Case Report Gynecologic Cytology Report ? Case: [id number] ? Authorizing Provider: ??Jennifer Ramey PA-C ?Collected: ? 06/27/2019 1200 ? Ordering Location: ? [facility] ?Received: ?06/29/2019 0952 ? First Screen: ?Fabian Saleh ? Specimen: ?ACID BATH MIXER ThinPrep Vial Screening, Cervical/Vaginal ? 07/02/2019 8:08 AM CDT [facility] INTERPRETATION/ RESULT NEGATIVE FOR INTRAEPITHELIAL LESION OR MALIGNANCY (NIL) (none) 07/02/2019 8:08 AM T [facility] IMEN ADEQUACY Satisfactory for evaluation No endocervical component seen 07/02/2019 8:08 AM CDT [facility] HPV REQUEST HPV and PAP 07/02/2019 8:08 AM T [facility] Date of LMP 05/15/2001 07/02/2019 8:08 AM [facility] Menstrual Status 07/02/2019 8:08 AM T [facility] Comment:Nexplanon Additional Information 07/02/2019 8:08 AM [facility] Comment: Interpreted at [facility] - [address] [place] [address], [place] [address] Automated Review Successful 07/02/2019 8:08 AM T [facility] Comment:Specimen processed s uccessfully by automated reclamation supervisor device, ThinPrep Imaging System, [employer] ANCILLARY TESTING ACID BATH MIXER HPV Ordered, Please see separate report 07/02/2019 8:08 AM [facility] Note The pap test is a [...] and malignant lesions. 07/02/2019 8:08 AM CDT [facility] Other (Cervical/Vagina l) 06/27/2019 12:00 PM CDT 06/29/2019 9:52 AM CDT May Tanvir [facility]/CYTOLOGY [facility] [address] [place] [address], from Last 3 Months or Most Recently Relevant to Health Maintenance Care Teams Developmental Mathematics Instructor Relationship Specialty Start Date End Date Jovana Lee MD [address] [id number] PCP - General Family Practice 09/23/15
--- OUTSIDE RECORDS SUMMARY | 2023-12-20 14:31 | XMS_ITS | Clinical Summary ---
Author Organization [facility] and [facility] Address [address] [place] [address] Care Team Providers Care Dial Screw Assembler Name Role Phone Inactive, Administrativel Primary Care Provider Source Comments If you need additional information that is not available on Care Everywhere, please contact our Medical Records Department during business hours (Sunday - Sunday, 8 am - 5 pm) at . During nonbusiness hours, please contact our Trauma and Emergency Center at .[facility] and [facility] Medications * Medications may not be up to date as of this document. Always verify current medications with the patient. Effexor Take by mouth daily PRN 5 Active Albuterol 90 mcg/Actuation Aerosol Inhaler Take 2 puffs by mouth every 4 hours as needed for shortness of breath 1 PRN 6 Active Immunizations Name Administration Dates Next Due MMR Live 06/11/1989 PPD Test 05/11/2004 Td (adult), 2 tetanus toxoid 03/16/2004,07/04/18 97 Social History Tobacco Use Types Packs/Day Years Used Date Smoking Tobacco: Never Assessed Comments Unknown Sex and Gender Information Value Date Recorded Sex Assigned at Not on file Legal Sex Female 10:18 AM [employer] Gender Identity Not on file Sexual Orientation [...] COLONOSCOPY 2023 DIABETES SCREENING 2023 COVID-19 Vaccine (1 - 2023-2 5 season) 2023 Influenza Vaccine (#1) 2023 RSV Vaccines (1 - 1-dose 75+ series) 2053 HPV Vaccine Aged Out No longer eligi ble based on patient's age to complete this topic POLIO (IPV) Vaccine Aged Out No longe r eligible based on patient's age to complete this topic Pneumococcal Vaccine: Pediatrics (0 to 5 Years) and At-Risk Patients (6 to 64 Years) Aged Out No longer eligible b ased on patient's age to complete this topic Procedures Procedure Name Priority Date/Time Associated Diagnosis Comments PATH PNEUDRAULIC SYSTEMS MECHANIC CYTOLOGY (PAP SMEAR) Routine 07/13/2005 from Last 3 Months or Most Recently Relevant to Health Maintenance Results * PATH PNEUDRAULIC SYSTEMS MECHANIC CYTOLOGY (PAP SMEAR) (07/13/2005) 07/13/2005 07/13/2005 Narrative 07/18/2005 Patient Name: Sue Park Sex: F : 1980 LMP: [facility] Rec #: [id number] Room: [facility] Physician: Carla Travis Cytology #: [id number] Specimen Source/Type: CERVICAL-ENDOCERVICAL/LBC Date Collected: 07/13/2005 Date Received: 07/14/2005 Date Reported: 07/18/2005 Specimen Adequacy: SATISFACTORY FOR EVALUATION. General Categorization: EPITHELIAL CELL ABNORMALITY: SEE DESCRIPTIVE DIAGNOSIS. Interpretation/Result: ATYPICAL SQUAMOUS CELLS OF UNDETERMINED SIGNIFICANCE, (ASC-US). Comments: HPV TESTING SENT TO [place]. Program Proposals Coordinator: JANETH Muller(ASCP) Pathologist: Miguel Ángel Contreras M.D.(Electronically [...] and its precursors. Carla Travis CNM PATHOLOGY/CYTOLOGY ORDERABLES F inal Result from Last 3 Months or Most Recently Relevant to Health Maintenance Care Teams Dial Screw Assembler Relationship Specialty Start Date End Date Inactive, Administrativel [address] [place] [id number] PCP - General 01/08/15
--- OUTSIDE RECORDS SUMMARY | 2023-12-20 14:31 | XMS_ITS | Continuity of Care Document ---
Author Organization [facility] Address [address] [facility] [facility] [address] [place] [address] Phone Care Team Providers Care Crowning Inspector Name Role Phone RN, RN Unavailable Unavailable Allergies, Adverse Reactions, Alerts Substance [...] Le Inj Anes Epidur; Lumb/sac 1 Le 24 [...] Diagnoses Date Provider Providers Copied on Encounter NEHAL Gutierrez, [address] [facility] [address], [place], [address], [place] tel:[phone] Matt [facility] No Information 4 RN RN. [address] [facility] [facility], [address], [place], [address], [place]. tel:[phone] Est Pt Eval Telehealth NEHAL Gutierrez, [address] [facility] [address], [place], [address], [place] tel:[phone] [facility] neck pain (chief complaint) lower back pain (chief complaint) Sacroiliitis, not elsewhere classifiedRadi culopathy, lumbar regionCervical giaPain in thoracic spineBody mass index (BMI) 40.0-44.9, adult Oct- 4 Ketola Ann. [address] [facility] [address], [place], [place], [address], [place]. tel:[phone] Referring Provider: Curt Walter, [facility], [place], [address]. tel:[phone] NEHAL Gutierrez, [address], [place], [place], [address], [place] tel:[phone] [facility] No Information 4 Marcia Hathaway. [address], [place], [address], [place]. tel:[phone] Referring Provider: Rivas Ghotra, [address], [place], [address]. tel:[phone] [facility], [address], [place], [address], [place] tel:[phone] [facility] neck pain (chief complaint) Radiculopathy, cervical regionRadiculo jorge, cervical region 4 [facility]. [address], [place], [place], [address], [place]. tel:[phone] Referring Provider: Rivas Ghotra, [address], [place], [address]. tel:[phone] JÚNIOR Gutierrez, [address], [place], [place], [address], [place] tel:[phone] [facility] No Information 4 Prasad Reyes. [address], [place], [address], [place]. tel:[phone] Referring Provider: Rivas Ghotra, [address], [place], [address]. tel:[phone] Est Pt Eval Telehealth Matt [facility], [address], [place], [place], [address], [place] tel:[phone] [facility] lower back pain (chief complaint) neck pain (chief complaint) Body mass index (BMI) 40.0-44.9, adultSacroilii tis, not elsewhere classifiedRadi culopathy, lumbar regionCervical giaPain in thoracic spine 4 [place] Ann. [address], [address], [place], [place], [address], [place]. tel:[phone] Referring Provider: Curt Walter, [address] [facility], [place], [address]. tel:[phone] [facility], [address], [place], [address], [place] tel:[phone] [facility] lower back pain (chief complaint) Radiculopathy, lumbar regionRadiculo jorge, lumbar region Sep-2 4 [facility]. [address], [place], [place], [address], [place]. tel:[phone] Referring Provider: Emmanuel Stoner, [address], [place], [address]. tel:[phone] [facility], [address], [place], [place], [address], [place] tel:[phone] [facility] No Information Oct-2 4 Herbie Benitez. [address], [place], [address], [place]. tel:[phone] Referring Provider: Emmanuel Stoner, [address], [place], [address]. tel:[phone] [facility], [address], [place], [place], [address], [place] tel:[phone] [facility] No Information Sep-2 4 Madelyn Perez. [address], [place], [place], [address], [place]. tel:[phone] Referring Provider: Emmanuel Stoner, [address], [place], [address]. tel:[phone] Est Pt Eval Telehealth Matt [facility], [address], [place], [place], [address], [place] tel:[phone] [facility] upper back pain (chief complaint) Radiculopathy, lumbar regionCervical giaPain in thoracic spineSacroilii tis, not elsewhere classified 4 Tiarra Charles. [address], [address], [place], [address], [place]. tel:[phone] Referring Provider: Curt Walter, [facility] [place], [address]. tel:[phone] [facility], [address], [address], [place], [address], [place] tel:[phone] [facility] lower back pain (chief complaint) Sacroiliitis, not elsewhere classifiedSacr oiliitis, not elsewhere classified 4 [facility]. [address], [place], [place], [address], [place]. tel:[phone] Referring Provider: Emmanuel Stoner, [address], [place], [address]. tel:[phone] Matt [facility], [address], [place], [place], [address], [place] tel:[phone] [facility] No Information 4 Herbie Benitez. [address], [place], [address], [place]. tel:[phone] Referring Provider: Emmanuel Stoner, [address], [place], [address]. tel:[phone] Matt [facility], [address], [place], [place], [address], [place] tel:[phone] [facility] No Information 4 Herbie Benitez. [address], [place], [address], [place]. tel:[phone] Referring Provider: Emmanuel Herbie, [address], [place], [address]. tel:[phone] Est Pt Eval Telehealth [facility], [facility], [address], [place], [place], [address], [place] tel:[phone] [facility] mid back pain (chief complaint) Radiculopathy, lumbar regionCervical giaPain in thoracic spineSacroilii tis, not elsewhere classifiedBody mass index (BMI) 45.0-49.9, adult 4 Eliazar Bourgeois. [address], [address], [place], [address], [place]. tel:[phone] Referring Provider: Curt Walter, [address] [place] [address], [address]. tel:[phone] [facility], [address], [place], [address], [place] tel:[phone] [facility] lower back pain (chief complaint) Radiculopathy, lumbar region 4 [facility] Surgical [facility] [address], [place], [place], [address], [place]. tel:[phone] Referring Provider: Geraldo Reese, [address], [place], [address] . tel:[phone] Matt, [facility], [address], [place], [place], [address], [place] tel:[phone] [facility] [place] No Information 4 Hugh Chow. [address], [place], [place], [address], [place]. tel:[phone] Referring Provider: Geraldo Reese, [address], [place], [address] . tel:[phone] Matt, [facility], [address], [place], [place], [address], [place] tel:[phone] [facility] [place] No Information 4 Hugh Chow. [address], [place], [place], [address], [place]. tel:[phone] Referring Provider: Geraldo Reese, [address], [place], [address] . tel:[phone] Est Pt Eval Telehealth Matt, [facility], [address], [place], [place], [address], [place] tel:[phone] [facility] body pain (chief complaint) Body mass index (BMI) 45.0-49.9, adultRadiculop athy, lumbar regionCervical giaPain in thoracic spine 4 Tiarra Charles. [address] , [address], [place], [address], [place]. tel:[phone] Referring Provider: Curt Walter, [address] [facility], [place], [address]. tel:[phone] Est Pt Eval Moderate Matt, [facility], [address], [place], [place], [address], [place] tel:[phone] [facility] back pain (chief complaint) right shoulder pain (chief complaint) Radiculopathy, lumbar regionSacroili itis, not elsewhere classifiedCerv icalgiaPain in thoracic spineBody mass index (BMI) 45.0-49.9, adultElevated blood-pressure reading, w/o diagnosis of htn 4 Tiarra Charles. [address], [address], [place], [address], [place]. tel:[phone] Referring Provider: Curt Walter, [address] [place], [address]. tel:[phone] Matt [facility], [address], [place], [place], [address], [place] tel:[phone] Matt [facility] No Information 4 Tiarra Charles. [address], [address], [place], [address], [place]. tel:[phone] Referring Provider: Curt Walter, [address] [place], [address]. tel:[phone] [facility], [address], [place], [address], [place] tel:[phone] [facility] [place] back pain (chief complaint) Spondylosis w/o myelopathy or radiculopathy, lumbar regionSpondylo sis w/o myelopathy or radiculopathy, lumbar region Apr- 4 [facility] Surgical [facility] [address], [place], [place], [address], [place]. tel:[phone] Referring Provider: Rivas [place], [address], [place], [address]. tel:[phone] Matt [facility], [address], [place], [place], [address], [place] tel:[phone] [facility] No Information 4 Marcia Hathaway. [address], [place], [address], [place]. tel:[phone] Referring Provider: Rivas Ghotra, [address], [place], [address]. tel:[phone] [facility], [address], [place], [place], [address], [place] tel:[phone] [facility] No Information 4 Marcia Hathaway. [address], [place], [address], [place]. tel:[phone] Referring Provider: Rivas Ghotra, [address], [place], [address]. tel:[phone] [facility], [address], [place], [place], [address], [place] tel:[phone] [facility] No Information 4 Marcia Hathaway. [address], [place], [address], [place]. tel:[phone] Referring Provider: Rivas Ghotra, [address], [place], [address]. tel:[phone] [facility], [address], [place], [address], [place] tel:[phone] [facility] Spondylosis w/o myelopathy or radiculopathy, lumbar regionSpondylo sis w/o myelopathy or radiculopathy, lumbar region 4 [facility] Surgical [facility] [address], [place], [place], [address], [place]. tel:[phone] Referring Provider: Rivas Ghotra, [address], [place], [address]. tel:[phone] Matt [facility], [address], [place], [place], [address], [place] tel:[phone] [facility] No Information 4 Marcia Hathaway. [address], [place], [address], [place]. tel:[phone] Referring Provider: Rivas Ghotra, [address], [place], [address]. tel:[phone] Est Pt Eval Telehealth Matt [facility], [address], [place], [address], [place] tel:[phone] [facility] back pain (chief complaint) Radiculopathy, lumbar regionBody mass index (BMI) 40.0-44.9, adult Nov 3 [facility]. [address] [place], [address], [place]. tel:[phone] Referring Provider: Curt Walter, [address] [place] [address], [address]. tel:[phone] [facility], [address], [address], [place] tel:[phone] [facility] Spondylosis w/o myelopathy or radiculopathy, lumbar regionSpondylo sis w/o myelopathy or radiculopathy, lumbar region 3 [facility] Surgical [facility] [address], [place], [place], [address], [place]. tel:[phone] Referring Provider: Rivas Ghotra, [address], [place], [address]. tel:[phone] Matt [facility], [address], [place], [place], [address], [place] tel:[phone] [facility] No Information 3 Marcia Hathaway. [address], [place], [address], [place]. tel:[phone] Referring Provider: Rivas Ghotra, [address], [place], [address]. tel:[phone] [facility], [address], [place], [place], [address], [place] tel:[phone] [facility] No Information 3 Marcia Hathaway. [address] [facility] [address], [address], [place]. tel:[phone] Referring Provider: Rivas Ghotra, [address], [place], [address]. tel:[phone] Est Pt Eval Telehealth [facility], [address], [place], [place], [address], [place] tel:[phone] [facility] back pain (chief complaint) Body mass index (BMI) 40.0-44.9, adultRadiculop athy, lumbar regionOther intervertebral disc degeneration, lumbosacral region Sep- 3 Steele Audrey. [address] [place], [address], [place]. tel:[phone] Referring Provider: Curt Walter, [address] [facility], [place], [address]. tel:[phone] [facility], [address], [place], [place], [address], [place] tel:[phone] [facility] No Information 3 Foster Emmanuel. [address], [place], [address], [place]. tel:[phone] Referring Provider: Emmanuel Herbie, [address], [place], [address]. tel:[phone] [facility], [address], [place], [address], [place] tel:[phone] [facility] back pain (chief complaint) Radiculopathy, lumbar regionRadiculo jorge, lumbar region Sep-0 3 [facility]. [address], [place], [place], [address], [place]. tel:[phone] Referring Provider: Emmanuel Stoner, [address], [place], [address]. tel:[phone] Matt, [facility], [address], [place], [place], [address], [place] tel:[phone] [facility] No Information Sep-0 3 Herbie Wagnery. [address], [place], [address], [place]. tel:[phone] Referring Provider: Curt Walter, [address] [facility], [place], [address]. tel:[phone] Est Pt Eval 25 Min Matt, [facility], [address], [place], [place], [address], [place] tel:[phone] [facility] back pain (chief complaint) Radiculopathy, lumbar regionOther intervertebral disc degeneration, lumbosacral regionBody mass index (BMI) 40.0-44.9, adult Gage-0 3 Steele Audrey. [address] [place], [address], [place]. tel:[phone] Referring Provider: Curt Walter, [address] [facility], [place], [address]. tel:[phone] [facility], [address], [place], [address], [place] tel:[phone] [facility] back pain (chief complaint) Radiculopathy, lumbar regionRadiculo jorge, lumbar region 3 [facility]. [address], [place], [place], [address], [place]. tel:[phone] Referring Provider: Vania Dobson , [address], [place], [address]. tel:[phone] Matt [facility], [address], [place], [place], [address], [place] tel:[phone] [facility] No Information 3 Olya Caro. [address], [place], [address], [place]. tel:[phone] Referring Provider: Vania Dobson , [address], [place], [address]. tel:[phone] Matt [facility], [address], [place], [place], [address], [place] tel:[phone] [facility] No Information 3 Olya Siddiquiin. [address], [place], [address], [place]. tel:[phone] Referring Provider: Vania Dobson , [address], [place], [address]. tel:[phone] Est Pt Eval 25 Min [facility], [address], [place], [place], [address], [place] tel:[phone] [facility] pain (chief complaint) Intervertebral disc disorders w radiculopathy, lumbar regionBody mass index (BMI) 40.0-44.9, adult 3 Mellesmoen Carrie. [address], [address], [place], [address], [place]. tel:[phone] Referring Provider: Curt Walter, [address] [place], [address]. tel:[phone] Est Pt Eval 25 Min Matt, [facility], [address], [place], [place], [address], [place] tel:[phone] [facility] pain (chief complaint) Intervertebral disc disorders w radiculopathy, lumbar regionBody mass index (BMI) 40.0-44.9, adult 3 Mellesmoen Carrie. [address] , [address], [place], [address], [place]. tel:[phone] Referring Provider: Curt Walter, [address] [place], [address]. tel:[phone] Matt, [facility], [address] [facility], [place], [place], [address], [place] tel:[phone] [facility] No Information 3 Mellesmoen Carrie. [address] , [address], [place], [address], [place]. tel:[phone] Referring Provider: Curt Walter, [address] [place], [address]. tel:[phone] Est Pt Eval 25 Min Telehealth [facility], [facility], [address], [place], [place], [address], [place] tel:[phone] [facility] back pain (chief complaint) Intervertebral disc disorders w radiculopathy, lumbar region 1 Enrico Childress. [address], [place], [address], [place]. tel:[phone] Referring Provider: Mary Deluca MD, [address] [place], [address]. tel:[phone] [facility], [address], [place], [place], [address], [place] tel:[phone] [facility] No Information 1 Den Donaldson. [address] [facility], [place], [address], [place]. tel:[phone] Referring Provider: Mary Deluca MD, [address] [place], [address]. tel:[phone] [facility], [facility], [address], [place], [place], [address], [place] tel:[phone] [facility] Pain disorder with related psychological factors 1 Den Donaldson. [address], [place], [address], [place]. tel:[phone] Referring Provider: Mary Deluca MD, [address] [facility], [place], [address]. tel:[phone] Est Pt Eval 25 Min [facility], [facility], [address], [place], [place], [address], [place] tel:[phone] [facility] Leg Pain (chief complaint) back pain (chief complaint) Low back painPain in legOther muscle spasmBody mass index (BMI) 45.0-49.9, adult Aug- 1 Chuckie Wheeler. [address], [place], [place], [address], [place]. tel:[phone] Referring Provider: Mary Deluca MD, [address] [facility], [place], [address]. tel:[phone] Est Pt Eval 15 Min [facility], [facility], [address], [place], [place], [address], [place] tel:[phone] [facility] back pain (chief complaint) Spondyls w/o myelopathy or radiculopathy, lumbosacr regionOsseous and sublux stenos of intvrt foramin of lumbar region Apr- 8 Dinega Gelane. [address] [facility] [address], [place], [address], [place]. tel:[phone] Referring Provider: Mary Deluca MD, [address] [place], [address]. tel:[phone] [facility], [address], [place], [address], [place] tel:[phone] [facility] back pain (chief complaint) Other intervertebral disc degeneration, lumbosacral regionInterver tebral disc disorders w radiculopathy, lumbar regionInterver tebral disc disorders w radiculopathy, lumbar regionOther intervertebral disc degeneration, lumbosacral region Apr- 8 [facility]. [address], [place], [place], [address], [place]. tel:[phone] Referring Provider: Ismael Milton, [address], [place], [address] . tel:[phone] Matt [facility], [address], [place], [place], [address], [place] tel:[phone] [facility] No Information 8 Chuckie Guevara. [address], [place], [place], [address], [place]. tel:[phone] Referring Provider: sImael Milton, [address], [place], [address] . tel:[phone] [facility], [address] [facility], [place], [address], [place] tel:[phone] [facility] back pain (chief complaint) Other intervertebral disc degeneration, lumbosacral regionInterver tebral disc disorders w radiculopathy, lumbar regionInterver tebral disc disorders w radiculopathy, lumbar regionOther intervertebral disc degeneration, lumbosacral region [facility]. [address], [place], [place], [address], [place]. tel:[phone] Referring Provider: Ismael Milton, [address], [place], [address] . tel:[phone] New Pt Eval [address] [facility], [address] [facility] [address], [place], [place], [address], [place] tel:[phone] [facility] back pain (chief complaint) Spondylosis w/o myelopathy or radiculopathy, lumbosacral regionOsseous and sublux stenos of intvrt foramin of lumbar region 8 No Information Referring Provider: Mary Deluca MD, [address] [facility], [place], [address]. tel:[phone] [facility], [address], [place], [place], [address], [place] tel:[phone] [facility] No Information 8 hCuckie Guevara. [address], [place], [place], [id number], . tel:[phone] Referring Provider: Ismael Milton, [address], [place], [address] . tel:[phone] Family History Family Member Type Diagnosis Age At Onset Father Problem (finding) Cancer Payers Payer name Insurance type Covered democrat ID Giovanny rivera(s) [facility] [place] [facility] [id number] Social History Type Description Quantity Date Captured Comments Alcohol Use Details Unknown Caffeine Use Details Unknown Tobacco Use Status No Information Smoking Status No Information Sex Female Chief Complaint And Reason For Visit No [...] classified) ordered Referral Referred To: Physical Therapy [address] [place] [address], [phone] Ordered: Referrals: Physical Therapy. Location: [facility]. Evaluate and treat ordered Referral Ordered: [...] To: Physical Therapy Ordered: Physical Therapy ordered Ernesto-15-2021 Referral Ordered: Referrals: Behavioral Health ordered Appointment Xavier Sue BOOKED Appointment Sue Park BOOKED History Of [...] exacerbated her pain. 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 This includes hard candy, mints, and gum. Please bring a garbage collector driver as well.*If you experience 80% or more short-term pain relief from 2 sacroiliac joint injections, consider sacroiliac fusionFollow up:- Ordered physical therapy to [facility] Related to Sacroiliitis, not elsewhere classified Medications:-OK to u se over the counter 4%Lidocaine cream alternated with 1%Voltaren cream every 4 hours along with icing and heating pad for additional pain reliefFollow up:- Follow up with Hansford Ketola [employer] via telehealth in 1-2 weeks after injection, telehealth okay Related to Radiculopathy, lumbar region Lifestyle education regarding di et Related to Body mass index [BMI] 40.0-44.9, adult Lifestyle education regarding di et Related to Body mass index [BMI] 40.0-44.9, adult - Follow up in the [facility]- Schedule MRI of the cervical spine w/ Rayus Related to Radiculopathy, cervical region Procedures:- Keep ce rvical epidural steroid injection as scheduled on 11/14/2023 Related to Cervicalgia Procedures:- Ordered repeat RIGHT SI joint injection, Matt will call to schedule once approved*If you have not heard back in a week, you may reach [facility] at [phone]*If you would like sedation, please do not eat or drink for 8 hours prior to procedure. This includes hard candy, mints, and gum. 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 injection at T6-7 Related to Pain in thoracic spine Lifestyle education regarding di et Related to Body mass index [BMI] 40.0-44.9, adult - Follow up in clini c in 2-3 weeks to discuss results from today's injection Related to Radiculopathy, lumbar region - Keep transforamina l lumbar epidural steroid injection as scheduled on 10/31/23-OK to use over the counter 4%Lidocaine cream alternated with 1%Voltaren cream every 4 hours along with icing and heating pad for additional pain relief- Follow up with Christelle Perea PA-C or Araceli Mayen [employer] 2 weeks after injection, telehealth okay Related to Radiculopathy, lumbar region - Can consider thora cic epidural steroid injection at T6-7 Related to Pain in thoracic spine - Continue to monito r relief from sacroiliac joint injection on right side Related to Sacroiliitis, not elsewhere classified - Schedule cervical epidural steroid injection as needed Related to Cervicalgia - Follow up in clini c to discuss results from today's injection Related to Sacroiliitis, not elsewhere classified - Can consider thora cic epidural steroid injection at T6-7 Related to Pain in thoracic spine - Nice to talk with you!- Prescribed Medrol dose pack, for fill 08/30/23- Ok to discontinue Flexeril 10mg - Follow up with Christelle Perea PA-C or Araceli Myaen [employer] as needed, telehealth okay Related to Radiculopathy, lumbar region - Keep injection on 09/24/23, currently scheduled as transforaminal lumbar epidural steroid injection, but can switch to cervical epidural steroid injection as needed. Related to Cervicalgia - Ordered sacroiliac joint injection on right side to schedule pending pain relief from lumbar epidural steroid injection*Matt will call to schedule once insurance approves, if you don't hear back in a few days call [phone] Related to Sacroiliitis, not elsewhere classified - Follow up in clini c with a nurse practitioner or physician assistant vice president about the results of today's injection Related to Radiculopathy, lumbar region - Can consider thora cic epidural steroid injection at T6-7 Related to Pain in thoracic spine - Ordered cervical e pidural steroid injection at C3-4. Once approved, Matt will call to schedule Related to Cervicalgia - Keep repeat lumbar epidural steroid injection as scheduled on 07/13/23- Refilled and continued [place] 5-325mg up to 1-2x/day as needed with #45 for 30 day supply for fill on 06/23/23- Continue Flexeril 10mg up to 3x a day as needed, no refill needed- Follow up with Araceli Mayen [employer] in one month or 2 weeks after injection, telehealth ok Related to Radiculopathy, lumbar region Giving encouragement to exercise Related to Body mass index [BMI] 45.0-49.9, adult - Follow up with [facility] provider if high blood pressure [...] to Cervicalgia - Requested medical records from [facility]- Ordered repeat lumbar epidural steroid injection, Matt will call you to schedule once insurance approves- Prescribed [place] 5-325mg up to 1-2x/day as needed with [...] in the [facility] to discuss the results of the [...] -Schedule Transforaminal Lumbar Epidural Steroid Injection at [id number] up as needed The risks and benefits of the procedure will be reviewed with the physician on the day of the procedure. 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, lumbar region - Order MRI of the l umabr spine at [facility]- Order stationary neutral A/P and lateral views x rays at [facility].- Order lateral flexion vs extension x ray of the lumbar spine at [facility] - schedule bilateral transforaminal lumbar epidural [...]
== END 2023-12-19 15:34 | disposition home or self-care (01) ==
LOC: NFLDREF 12-20 14:29
PROVIDERS: PCP Family Medicine; Referring Provider Family Medicine
DX: N39.0 Urinary tract infection, site not specified (principal); N30.01 Acute cystitis with hematuria
CPT/HCPCS: 87086; 87186

== ENCOUNTER 2024-07-23 07:47 | Outpatient (CLI) | payer BC, SELFPAY | END 2024-07-23 07:48 | disposition home or self-care (01) | LOC: NFLDREF 07-27 02:51 | PROVIDERS: PCP Family Medicine; Referring Provider Family Medicine; Visit Provider Family Medicine | DX: I10 Essential (primary) hypertension (principal); E03.9 Hypothyroidism, unspecified; E78.5 Hyperlipidemia, unspecified; E66.01 Morbid (severe) obesity due to excess calories | CPT/HCPCS: 80053; 80061; 84443 ==

== ENCOUNTER 2024-11-12 07:38 | Outpatient (CLI) | payer BC, SELFPAY | END 2024-11-12 07:39 | disposition home or self-care (01) | LOC: NFLDREF 11-14 15:16 | PROVIDERS: PCP Family Medicine; Referring Provider Family Medicine; Visit Provider Family Medicine | DX: E78.5 Hyperlipidemia, unspecified (principal) | CPT/HCPCS: 80061; 83001 ==